=== PATIENT | female | born 1940 | race Caucasian/White ===

== ENCOUNTER 2022-10-10 10:59 | Emergency (ER) | payer MEDICARE, BC, OTHER, SELFPAY ==
[2022-10-10 11:12] VITALS: BP 152/68; PULSE 73; RESP 16; TEMP 36.7; O2SAT 100
[2022-10-10 11:14] VITALS: BP 152/68; PULSE 73; RESP 16; TEMP 36.7; O2SAT 100
--- NOTE | 2022-10-10 11:20 | ED.EYEPROB ---
HPI - Eye Problem General Chief complaint: Eye Problems Stated complaint: right eye blurry Time Seen by Provider: 10/10/22 11:20 Source: patient and RN notes reviewed History of Present Illness HPI Narrative: patient is a 82-year-old female who presents to the Urgent Care with complaints of blurry vision in the right eye for the last 2-3 days. Denies any injury or foreign body to the eye. Patient states she feels that there is a film over the eye . Patient denies any recent headaches, neurological deficits, weakness, fatigue. Patient did drive herself to the facility and does not have a family member available at this time. No other acute complaints. No acute distress noted. Patient aware of the plan of care. Some parts of this dictation were generated by voice recognition software and may contain typographical and/or grammatical inaccuracies. Related Data Home Medications Medication Instructions Recorded Confirmed glimepiride 4 mg tablet mg 10/10/22 lisinopril 20 mg tablet mg 10/10/22 metformin 500 mg tablet mg 10/10/22 oxybutynin chloride 10 mg mg PO 10/10/22 tablet,extended release 24 hr potassium chloride 10 mEq meq PO 10/10/22 tablet,extended release pravastatin 40 mg tablet mg 10/10/22 propranolol 40 mg tablet mg 10/10/22 Allergies Allergy/AdvReac Type Severity Reaction Status Date / Time Penicillins Allergy Mild HIVES Verified 09/18/15 10:41 Review of Systems Review of Systems: CONSTITUTIONAL: Denies fever, chills, or sweats. EYES: Reports of blurry vision to the right eye ENT: Denies rhinorrhea, congestion, sore throat, or otalgia. CARDIOVASCULAR: Denies chest pain, palpitations, or edema. RESPIRATORY: Denies cough or dyspnea. GASTROINTESTINAL: Denies abdominal pain, nausea, vomiting, or diarrhea. GENITOURINARY: Denies dysuria or hematuria. SKIN: Denies rash or itching. MUSCULOSKELETAL: Denies back pain, joint pain, or myalgia. NEUROLOGIC: Denies headache, numbness, or weakness. All other systems reviewed are negative, except as documented in HPI. PMFSH Comments At the time of my signature, I reviewed and agree with the nursing past medical, surgical, social, and family history. There is no relevant family history pertinent to the patient complaint. Exam Narrative: GENERAL: This is a well-nourished, well-developed patient, in no apparent distress. HEAD: normocephalic, atraumatic. EYES: PERRL. Sclera clear/white. Vision is grossly intact. No obvious foreign body or injury noted to the right eye. EARS: External ears normal, auditory canals clear and without drainage, TMs normal without perforation. Hearing grossly intact. NOSE: External nose normal with no obvious nasal discharge, nares without redness, no rhinorrhea. THROAT: Mucous membranes moist NECK: Neck supple SKIN: warm, intact with no suspicious lesions or rash, good texture and turgor. NEURO: awake, alert, and oriented to person, place and time. There were no obvious focal neurologic abnormalities. 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 No asymmetry. Facial nerve intact. EXTREMITIES: No clubbing, cyanosis, or edema. Course Course Level of Care: Express Care Visit Vital Signs Vital signs: Vital Signs Temperature 98.1 F 10/10/22 11:12 Pulse Rate 73 10/10/22 11:12 Respiratory Rate 16 10/10/22 11:12 Blood Pressure 152/68 H 10/10/22 11:12 Pulse Oximetry 100 10/10/22 11:12 Oxygen Delivery Room Air 10/10/22 11:12 Temperature 98.1 F 10/10/22 11:14 Pulse Rate 73 10/10/22 11:14 Respiratory Rate 16 10/10/22 11:14 Blood Pressure 152/68 H 10/10/22 11:14 Pulse Oximetry 100 10/10/22 11:14 Oxygen Delivery Room Air 10/10/22 11:14 Reviewed- Patient is informed that they may have pre-hypertension or hypertension based on a blood pressure reading in the department. I recommend the patient call the primary care provider listed on their discharge instructions or a physician of their choice this week
== END 2022-10-10 11:31 | disposition left against medical advice (07) ==
PROVIDERS: Emergency Provider Nurse Practitioner Family
DX: H53.8 Other visual disturbances (principal)
CPT/HCPCS: 99202; G0463

== ENCOUNTER 2023-05-09 08:13 | Emergency (ER) | payer MEDICARE, BC, SELFPAY ==
--- NOTE | ~2023-05-09 | CT_ITS ---
EXAMINATION: CT brain wo con DATE: 05/09/2023 12:02 INDICATION: Minor head injury TECHNIQUE: Computed tomography (CT) of the head was performed without intravenous contrast. Sagittal and coronal reconstructions were performed. The mA was adjusted according to patient size. Iterative reconstruction technique was employed. The dose-length product was 605.33 mGy-cm. COMPARISON: None FINDINGS: No fracture. No acute intracranial hemorrhage, acute infarction or abnormal extra axial fluid collect ion. 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 There is moderate scattered w celestino matter hypoattenuation consistent with chronic small vessel ischemic disease. Symmetric prominen ce of the sulci and ventricles consistent with moderate to severe age-appropriate diffuse cerebral vo lume loss. No mass/mass effect. Changes of bilateral intraocular lens replacement. The orbits, parana chacho sinuses and mastoid air cells are normal. Intracranial calcified cerebral atherosclerosis is note d. IMPRESSION: 1. No fracture or acute intracranial process. 2. 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 3. Age-related changes including moderate to severe diffuse volume loss and moderate scattered white matter hypoattenuation consistent with chronic small vessel ischemic disease. Reviewed, dictated and finalized at location A. IMPRESSION: 1. No fracture or acute intracranial process. 2. 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 3. Age-related changes including moderate to severe diffuse volume loss and mod erate scattered white matter hypoattenuation consistent with chronic small vess el ischemic disease.
--- NOTE | ~2023-05-09 | XR_ITS ---
EXAMINATION: SACRUM/COCCYX DATE: 05/09/2023 09:11 INDICATION: Low back pain after fall TECHNIQUE: Three views sacrum/coccyx FINDINGS: No prior studies for comparison. There is no displaced fracture of the sacrum. The coccyx demonstrates overall normal morphology with out acute angulation.There is degenerative spondylosis lower lumbar spine. There are symmetric degene rative changes of the hips and sacroiliac joints. Osteopenia. IMPRESSION: 1. No acute displaced osseous abnormality of the sacrum. Suspicion for occult or nondisplaced sacral fracture can either be evaluated with CT or MRI. 2. Grossly normal morphology to the coccyx without acute angulation. However, due to the wide range of normal variation of the coccyx, acute injury would be best evaluated by clinical examination and patient's symptoms. Reviewed, dictated and finalized at location []
[2023-05-09 08:16] VITALS: BP 133/80; PULSE 81; RESP 12; TEMP 36.6; O2SAT 99
[2023-05-09 08:55] VITALS: BP 112/71; PULSE 81; RESP 16; O2SAT 99
[2023-05-09] MEDS: SODIUM CHLORIDE 0.9% IV 1,000 ML 999 ML IV CONT (08:55)
[2023-05-09 09:04] LABS: Hematocrit 34.9 % (37.0-47.0); Hemoglobin 11.5 g/dL (12.0-15.0); Immature Granulocyte Absolute 0.09 K/mm3 (0.00-0.031); Immature Granulocyte Percent A 1.5 % (0-0.5); Immature Platelet Fraction Pct 8.3 % (0.9-11.2); Lymphocytes Absolute Auto 0.35 K/mm3 (0.9-3.2); Lymphocytes Percent Auto 5.7 % (18.3-44.2); Mean Corpuscular Hemoglobin 32.1 pg (26-34); Mean Corpuscular Volume 97.5 fl (80-100); Mean Platelet Volume 11.6 fl (7.4-10.4); Monocytes Absolute Auto 0.2 K/mm3 (0.1-0.6); Monocytes Percent Auto 3.7 % (2.6-8.5); Neutrophils Absolute Auto 5.5 K/mm3 (1.3-6.7); Neutrophils Percent Auto 89.1 % (45.5-73.1); Platelet Count Result 48 k/mm3 (150-375); Red Blood Count 3.58 M/mm3 (4.2-5.4); Red Cell Distribution Width 15.1 % (11.5-14.5); White Blood Count 6.2 K/mm3 (4.5-10.0)
[2023-05-09 09:12] LABS: Alanine Aminotransferase 23 U/L (6-35); Albumin Level 2.6 g/dL (3.5-5.1); Alkaline Phosphatase 70 U/L (38-126); Anion Gap 2 mmol/L (8-16); Aspartate Amino Transferase 19 U/L (14-36); Bilirubin,Total 1.1 mg/dL (0.2-1.3); Blood Urea Nitrogen 28 mg/dL (7-17); Carbon Dioxide 23 mmol/L (22-30); Chloride 109 mmol/L (98-107); Estimated CRCL calculation 58 ml/min; Estimated Glomerular Filt Rate > 60; Glucose 320 mg/dL (65-110); Potassium 3.8 mmol/L (3.4-5.0); Sodium 134 mmol/L (137-145)
[2023-05-09 09:37] LABS: Creatine Kinase < 20 U/L (30-135)
[2023-05-09 09:53] VITALS: BP 144/73; PULSE 85; RESP 12; O2SAT 99
[2023-05-09 09:56] LABS: Appearance Urine Clear (Clear); Bilirubin Urine Negative (Negative); Blood Urine Negative (Negative); Color Urine Yellow (Yellow); Glucose Urine UA 3+ mg/dL (Negative); Ketones Urine Negative (Negative); Leukocyte Esterase Ur Negative LEU/UL (Negative); Nitrate Urine Negative (Negative); Protein Urine Negative (Negative); Specific Grav Ur 1.024 (1.001-1.035)
[2023-05-09 10:03] LABS: Add Urine Microscopic? NO
--- NOTE | 2023-05-09 10:21 | ED.FALL ---
HPI - Fall General Chief Complaint: Fall Stated Complaint: fall/ back pain Time Seen by Provider: 05/09/23 08:31 History of Present Illness HPI Narrative: Patient is an 82-year-old female who presents ER status post fall. She reports that she was trying to turn off an overhead light and was too short and fell last night. She landed on buttock. She did not lose consciousness. She did not strike her head other than a light tap on the ground. She reports she was too weak to stand up and was not close enough for a life alert so she laid on the ground throughout the evening. She then was able to make it over to her life alert today was brought to the ER. She has no complaints of extremity pain at this time. She has some mild pain to her buttock where she fell. No pain to the hips. Denies any prodrome of dysuria or urinary frequency or urgency. Has been eating and drinking normally without issue. Related Data Home Medications Medication Instructions Recorded Confirmed glimepiride 4 mg tablet mg 10/10/22 lisinopril 20 mg tablet mg 10/10/22 metformin 500 mg tablet mg 10/10/22 oxybutynin chloride 10 mg mg PO 10/10/22 tablet,extended release 24 hr potassium chloride 10 mEq meq PO 10/10/22 tablet,extended release pravastatin 40 mg tablet mg 10/10/22 propranolol 40 mg tablet mg 10/10/22 Allergies Allergy/AdvReac Type Severity Reaction Status Date / Time Penicillins Allergy Mild HIVES Verified 05/09/23 08:22 Review of Systems Review of Systems: All systems reviewed & are unremarkable except as noted in HPI and below Constitutional: Constitutional: Denies chills, Denies fatigue and Denies fever(s) ENT: Denies nasal congestion and Denies sore throat Cardiovascular: Cardiovascular: Denies chest pain, Denies rapid heart rate and Denies radiating jaw, neck or arm pain Respiratory: Respiratory: Denies cough and Denies dyspnea Gastrointestinal: Gastrointestinal: Denies abdominal pain, Denies nausea and Denies vomiting Musculoskeletal: Musculoskeletal: Denies arthralgias, Denies joint swelling and Denies muscle cramps Comments: Pain over the buttock Neurologic: Denies syncope, Denies headache(s), Denies focal weakness and Denies numbness [facility] Past Medical History Medical History (Updated 05/09/23 @ 12:53 by Raj Lao MD) Diabetes History of retinal detachment Hyperlipidemia Hypertension Thrombocytopenia Surgical History Surgical History (Updated 05/09/23 @ 10:24 by Raj Lao MD) History of hysterectomy Exam Narrative: GENERAL: Well-appearing, well-nourished, and in no acute distress. HEAD: Normocephalic, atraumatic. ENT: Mucous membranes moist. NECK: Supple. CHEST: Clear to auscultation. No respiratory distress. HEART: Regular rate and rhythm. Normal peripheral pulses. ABDOMEN: Soft, nontender, nondistended. Back: No reproducible midline tenderness to T/L-spine. No paraspinal muscular tenderness either. There is mild discomfort over the left buttock but not the coccyx midline. EXTREMITIES: Normal range of motion. No edema. SKIN: Warm, dry, no rash. NEURO: Alert and oriented x3. PSYCH: Normal mood and affect. Course Course Emergency Course: Patient resting comfortably. Reports she has chronic thrombocytopenia that she did not initially report and is being treated with infusions by Dr. Stockton. CT scan without head bleed. She has been up and ambulatory without issue. Discharge home recommend treatment of pain with [id number] pain medication Vital Signs Vital signs: Vital Signs Temperature 97.8 F 05/09/23 08:16 Pulse Rate 81 05/09/23 08:16 Respiratory Rate 12 05/09/23 08:16 Blood Pressure 133/80 05/09/23 08:16 Pulse Oximetry 99 05/09/23 08:16 Oxygen Delivery Room Air 05/09/23 08:16 Temperature 97.8 F 05/09/23 08:16 Pulse Rate 85 05/09/23 12:09 Respiratory Rate 15 05/09/23 12:09 Blood Pressure 122/71 05/09/23
[2023-05-09 11:02] VITALS: BP 115/75; PULSE 90; RESP 12; O2SAT 94
[2023-05-09 12:09] VITALS: BP 122/71; PULSE 85; RESP 15; O2SAT 99
[2023-05-09 13:25] VITALS: BP 111/63; PULSE 87; RESP 17; O2SAT 94
== END 2023-05-09 13:27 | disposition home or self-care (01) ==
PROVIDERS: Emergency Provider Emergency Medicine; PCP Internal Medicine Geriatric Medicine
DX: S39.92XA Unspecified injury of lower back, initial encounter (principal); D69.6 Thrombocytopenia, unspecified; I10 Essential (primary) hypertension; E11.9 Type 2 diabetes mellitus without complications; E78.5 Hyperlipidemia, unspecified; Z90.710 Acquired absence of both cervix and uterus; Z79.84 Long term (current) use of oral hypoglycemic drugs; W18.39XA Other fall on same level, initial encounter
CPT/HCPCS: 36415; 70450; 72220; 80053; 81003; 82550; 85025; 85055; 96360; 99284; J7030

== ENCOUNTER 2023-05-14 13:04 | Inpatient (IN) | payer MEDICARE, BC, SELFPAY ==
[2023-05-14] VITALS (36 sets, daily range): BP systolic 93–127; BP diastolic 51–79; PULSE 72–81; RESP 10–22; TEMP 36.6–37; O2SAT 93–100; BMI 24.7
--- NOTE | ~2023-05-14 | XR_ITS ---
EXAMINATION: XR chest 1V portable DATE: 05/16/2023 15:08 INDICATION: Status post percutaneous left lung biopsy TECHNIQUE: frontal view of the chest was obtained. COMPARISON: Chest radiograph dated 05/16/2023 FINDINGS: Again seen is the biopsied cavitary left upper lobe mass projecting over the lateral left upper lung zone. No new airspace opacities, pulmonary edema, pleural effusion or pneumothorax. The cardiomediast inal silhouette is normal. No gallstones in right upper quadrant. Old healed proximal left humeral fr acture deformity. IMPRESSION: 1. No pneumothorax, pleural effusion or other acute cardiopulmonary disease post percutaneous biopsy of a cavitary left upper lobe mass which could be either infectious or malignant in etiology. 2. Cholelithiasis. Reviewed, dictated and finalized at location A. IMPRESSION: 1. No pneumothorax, pleural effusion or other acute cardiopulmonary disease pos t percutaneous biopsy of a cavitary left upper lobe mass which could be either infectious or malignant in etiology. 2. Cholelithiasis.
--- NOTE | ~2023-05-14 | XR_ITS ---
EXAMINATION: XR chest 1V portable DATE: 05/16/2023 17:05 INDICATION: Status post percutaneous left lung biopsy TECHNIQUE: frontal view of the chest was obtained. COMPARISON: Chest radiograph dated 05/16/2023 FINDINGS: Again seen is the biopsied cavitary mass at the lateral left mid to upper lung zone. No new airspace opacities, pleural effusion or pneumothorax. The cardiomediastinal silhouette is normal. Cholelithias is and right upper quadrant. Old healed proximal left humeral fracture. IMPRESSION: 1. No pneumothorax or other acute cardiopulmonary disease post percutaneous biopsy of a left upper lo be cavitary mass which could be infectious or malignant in etiology. 2. Cholelithiasis. Reviewed, dictated and finalized at location A. IMPRESSION: 1. No pneumothorax or other acute cardiopulmonary disease post percutaneous bio psy of a left upper lobe cavitary mass which could be infectious or malignant i n etiology. 2. Cholelithiasis.
--- NOTE | ~2023-05-14 | XR_ITS ---
EXAMINATION: XR chest 1V Exam Date/Time: 05/16/2023 13:55 CDT HISTORY: S/P LEFT LUNG BIOPSY Comparison: 05/14/2023. RESULT: Lines, tubes, and devices: None. Lungs and pleura: Slightly increased size of the left upper lung nodule status post biopsy likely se condary to mild perilesional hemorrhage. No pneumothorax. Hazy left basilar opacity. Mild blunting of the left lateral costophrenic angle. Cardiomediastinal silhouette: Stable. Other: No acute osseous or upper abdominal finding. IMPRESSION: No pneumothorax post biopsy. Minimal perilesional hemorrhage surrounding the left upper lobe nodule. Subsegmental left basilar atelectasis. Trace left pleural effusion. Reviewed, dictated and finalized at location K. IMPRESSION: No pneumothorax post biopsy. Minimal perilesional hemorrhage surrounding the le ft upper lobe nodule. Subsegmental left basilar atelectasis. Trace left pleural effusion.
--- NOTE | ~2023-05-14 | CT_ITS ---
EXAMINATION: CT diagnostic chest wo con DATE: 05/14/2023 15:11 INDICATION: lung nodule. Shortness of breath. TECHNIQUE: Computed tomography (CT) of the chest was performed without intravenous contrast. Addition al 3D reconstructions utilizing coronal maximum intensity projection (MIP) were performed. Automated exposure control and iterative reconstruction technique were employed. The dose-length prod uct was 144.43 mGy-cm. COMPARISON: Chest radiograph dated 05/14/2023 FINDINGS: 2.5 x 1.5 x 1.9 cm left upper lobe nodule. Small calcified right lower lobe nodule consistent with ol d granulomatous disease. Linear bands of discoid atelectasis/scarring the bilateral lower lobes. No p ulmonary edema, pleural effusion or pneumothorax. Heart size is normal. Atherosclerotic coronary asa ry calcification. Thoracic aorta is normal in caliber. No pathologically enlarged thoracic lymphadeno karo. Small sliding-type hiatal hernia. Multiple peripherally calcified gallstones in the otherwise normal-appearing gallbladder. 4.0 cm macroscopic fat attenuation partially exophytic mass arising fro m the anterior lower pole of the right kidney consistent with an angiomyolipoma. 1 mm nonobstructing stone at the lower pole of the right kidney. Mild upper thoracic levocurvature with mild spondylosis. IMPRESSION: 1. 2.5 x 1.5 x 1.9 cm left upper lobe mass which is concerning for malignancy with differential inclu ding pneumonia or other inflammatory process. Consider CT-guided percutaneous lung biopsy for further evaluation. Reviewed, dictated and finalized at location A. IMPRESSION: 1. 2.5 x 1.5 x 1.9 cm left upper lobe mass which is concerning for malignancy w ith differential including pneumonia or other inflammatory process. Consider CT -guided percutaneous lung biopsy for further evaluation.
--- NOTE | ~2023-05-14 | MR_ITS ---
EXAMINATION: MR brain/brain stem wo/w con DATE: 05/15/2023 08:55 INDICATION: Abnormal head CT obtained for dizziness and frequent falls concerning for acute infarct TECHNIQUE: Magnetic resonance imaging (MRI) of the brain and brainstem was performed without and with 11 mL Multihance intravenous contrast. Sequences included sagittal and axial T1-weighted SE, axial d iffusion-weighted FS SE, axial 3D SWAN, axial T2-weighted FLAIR, and axial T2-weighted FSE. Postcontr ast axial and coronal T1-weighted SE was obtained. Apparent diffusion coefficient (ADC) maps were cre ated. COMPARISON: Head CT dated 05/14/2023 FINDINGS: There are no areas of restricted diffusion to suggest acute infarction. Again seen is a small old lac unar infarct at the left caudate nucleus best appreciated on the sagittal imaging. No intracranial he morrhage or abnormal intracranial mass lesion. There are scattered areas of nonspecific increased T2- weighted signal intensity in the cerebral white matter, predominantly involving the deep and perivent ricular white matter as well as the bilaterally as well as balanced ganglia, thalami and bilateral ba chacho ganglia, thalami and damian. There are no intraparenchymal signal abnormalities seen on the other p ulse sequences. Symmetric prominence of the sulci and ventricles including a cavum septum vergae cons istent with moderate age-appropriate diffuse cerebral volume loss. There are no abnormal extra-axial fluid collections. Flow voids are seen in the cerebral arteries on the T2-weighted sequences consiste nt with their expected patency. Changes of bilateral intraocular lens replacement. Visualized orbits and soft tissues are unremarkable. There are no areas of abnormal enhancement on the post contrast i mages. IMPRESSION: 1. No acute intracranial process. 2. Small lacunar infarct at the head of the left caudate nucleus. 3. Age-related changes including moderate diffuse volume loss and extensive calcific white matter T2 hyperintensity including at the thalami or tonsillar the decreased attenuation seen on prior CT and l ikely sequela of chronic small vessel ischemic disease. Reviewed, dictated and finalized at location A. IMPRESSION: 1. No acute intracranial process. 2. Small lacunar infarct at the head of the left caudate nucleus. 3. Age-related changes including moderate diffuse volume loss and extensive juliane cific white matter T2 hyperintensity including at the thalami or tonsillar the decreased attenuation seen on prior CT and likely sequela of chronic small vess el ischemic disease.
--- NOTE | ~2023-05-14 | US_ITS ---
EXAMINATION: US carotid duplex BI DATE: 05/15/2023 09:19 INDICATION: Dizziness. Cerebral atherosclerosis. TECHNIQUE: Grayscale, color Doppler, and pulsed Doppler images of the cervical carotid arteries were obtained. The degree of vessel stenosis is placed in one of the following categories: normal, <50%, 5 0-69%, >=70% but less than near-occlusion, near-occlusion, or total occlusion. Note that percent sten osis relative to normal distal artery lumen diameter is indirectly measured from velocity measurement s as described by Rocco, et al. Radiology 2003; 229:340-346. COMPARISON: None. FINDINGS: RIGHT: The right common carotid artery (CCA) peak systolic velocity (PSV) is 79 cm/s. The right internal car otid artery (ICA) PSV is 78 cm/s. The right ICA end-diastolic velocity (EDV) is 30 cm/s. The right IC A/CCA PSV ratio is 1.0. Grayscale and color Doppler images yield an estimate of <50% diameter reducti on from minimal plaque in the ICA. The external carotid artery (ECA) PSV is 56 cm/s. There is antegra de flow in the right vertebral artery. LEFT: The left CCA PSV is 81 cm/s. The left ICA PSV is 99 cm/s. The left ICA EDV is 36 cm/s. The left ICA/C CA PSV ratio is 1.2. Grayscale and color Doppler images yield an estimate of <50% diameter reduction from minimal plaque in the ICA. The ECA PSV is 53 cm/s. There is antegrade flow in the left vertebral artery. IMPRESSION: 1. <50% stenosis from minimal plaque in the right internal carotid artery. 2. <50% stenosis from minimal plaque in the left internal carotid artery. Reviewed, dictated and finalized at location A.
--- NOTE | ~2023-05-14 | XR_ITS ---
EXAMINATION: XR chest 1V portable INDICATION: Stroke symptoms TECHNIQUE: Portable AP chest at 1434 hours COMPARISON: None available FINDINGS: There is a 2 cm nodular opacity of the left upper lung zone. No pleural effusion or pneumot horax. The cardiomediastinal silhouette is normal. There is an old healed fracture of the proximal le ft humerus. Cholelithiasis is noted. IMPRESSION: 1. Left upper lobe nodule. Further evaluation with CT of the chest is recommended. Reviewed, dictated and finalized at location [] IMPRESSION: 1. Left upper lobe nodule. Further evaluation with CT of the chest is recommend ed.
--- NOTE | ~2023-05-14 | CT_ITS ---
Clinical Indication: Pulmonary embolus CT Scan of the Chest with Contrast: Technique: Contiguous sections were acquired throughout the chest after intravenous administration of 100 cc of Omnipaque 350. Dose reduction technique was used on this scan by utilizing automated expos ure control and iterative reconstruction technique. The dose-length product (DLP) was 173.51 mGy-cm. COMPARISON: 05/14/2023 Findings: There is no evidence of any significant mediastinal, hilar or axillary lymphadenopathy. There is prob able segmental level pulmonary embolus at the left lower lobe. No other pulmonary emboli identified. There is no evidence of aortic dissection or aneurysm. There is no evidence of pleural or pericardial effusion. Rounded consolidation left upper lobe is again present, now with central cavitation since prior exam. Images through the upper abdomen reveal splenomegaly, partially imaged. Impression: Pulmonary embolus at the segmental level on the left lower lobe. No other pulmonary emboli identified . Rounded consolidation left upper lobe, now with central cavitation since prior exam. Diagnostic consi derations again include pneumonia versus malignancy. Reviewed, dictated and finalized at [facility]. Impression: Pulmonary embolus at the segmental level on the left lower lobe. No other pulmo nary emboli identified. Rounded consolidation left upper lobe, now with central cavitation since prior exam. Diagnostic considerations again include pneumonia versus malignancy.
--- NOTE | ~2023-05-14 | CT_ITS ---
EXAMINATION: CT biopsy lung w/imaging DATE: 05/16/2023 14:01 INDICATION: Cavitary mass in the left upper lobe TECHNIQUE: The procedure including the risks and benefits was discussed with the patient. Risks discu ssed included infection, approximately 1/20 risk of symptomatic hemorrhage beyond mild hemoptysis, ap proximately 1/3 risk of pneumothorax, and approximately 1/10 risk of pneumothorax severe enough to wa rrant chest tube placement. The patient understood the risks and agreed to proceed. The patient was p laced prone. The skin overlying the posterior left hemithorax was prepped and draped in sterile fash ion. Anesthetic was administered with 1% lidocaine subcutaneously. A 19 gauge outer needle was adva nced under CT guidance to the lesion of interest. A 20 gauge core biopsy needle was then used to obta in 3 core biopsy specimens. 2 additional core specimens were obtained and placed in a sterile cup wit hout formalin for Gram stain and cultures. Approximately 0.5 mm of bloody fluid was aspirated from th e cystic component of the lesion prior to removal of the guide needle and was also sent to the lab fo r Gram stain and cultures. The needle was removed and the entry site was cleaned and dressed. There were no immediate complications. The dose-length product was 174.37 mGy-cm. FINDINGS: CT images demonstrate the outer needle tip just within a 2.2 x 1.8 cm centrally cavitary ma ss in the posterior left upper lobe. IMPRESSION: 1. Successful CT-guided biopsy of a 2.2 cm cavitary mass in the left upper lobe.. Reviewed, dictated and finalized at location A. IMPRESSION: 1. Successful CT-guided biopsy of a 2.2 cm cavitary mass in the left upper lobe ..
--- NOTE | ~2023-05-14 | CT_ITS ---
EXAMINATION: CT brain wo con DATE: 05/14/2023 13:24 INDICATION: Dizziness. Frequent falls. TECHNIQUE: Computed tomography (CT) of the head was performed without intravenous contrast. Sagittal and coronal reconstructions were performed. The mA was adjusted according to patient size. Iterative reconstruction technique was employed. The dose-length product was 605.33 mGy-cm. COMPARISON: head CT dated 05/09/2023 FINDINGS: No fracture. No acute intracranial hemorrhage, acute infarction or abnormal extra axial fluid collect ion. 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 Again seen is moderate scatte red white matter hypoattenuation consistent with chronic small vessel ischemic disease. One of the re gions of hypodensity at the left thalamus appears slightly more prominent than on the prior study whi ch could be related to acute infarct. Symmetric prominence of the sulci and ventricles consistent wit h moderate to severe age-appropriate diffuse cerebral volume loss. No mass/mass effect. Changes of bi lateral intraocular lens replacement. The orbits, paranasal sinuses and mastoid air cells are normal. Intracranial calcified cerebral atherosclerosis is noted. IMPRESSION: 1. Increased prominence of a small region of hypodensity left thalamus raising the possibility of acu te infarct superimposed over the otherwise unchanged moderate scattered white matter hypoattenuation consistent with chronic small vessel ischemic disease. No other acute intracranial process. 2. Unchanged small old lacunar infarct at the head of the left caudate nucleus. Reviewed, dictated and finalized at location A. IMPRESSION: 1. Increased prominence of a small region of hypodensity left thalamus raising the possibility of acute infarct superimposed over the otherwise unchanged mode rate scattered white matter hypoattenuation consistent with chronic small vesse l ischemic disease. No other acute intracranial process. 2. Unchanged small old lacunar infarct at the head of the left caudate nucleus.
--- NOTE | ~2023-05-14 | US_ITS ---
EXAMINATION: US venous doppler [facility] DATE: 05/15/2023 09:17 INDICATION: Right lower limb pain and swelling TECHNIQUE: Grayscale ultrasound images without and with compression and Doppler ultrasound images of the bilateral lower extremity veins were obtained. COMPARISON: None. FINDINGS: There is noncompressible occlusive appearing thrombus in the right popliteal, posterior tibial and pe roneal veins. The visualized portions of right common femoral vein, profunda (deep) femoral vein, fem oral vein, gastrocnemius vein and greater saphenous vein outflow are patent. There is noncompressible occlusive appearing thrombus in the left posterior tibial and peroneal veins . The visualized portions of left common femoral vein, profunda femoral vein, femoral vein, popliteal vein, gastrocnemius vein and greater saphenous vein outflow are patent. IMPRESSION: 1. Deep venous thrombosis in the right popliteal and bilateral posterior tibial and peroneal veins. Findings were discussed with Shamar Mccrary, the nurse caring for the patient, at 9:45 AM. Reviewed, dictated and finalized at location A. IMPRESSION: 1. Deep venous thrombosis in the right popliteal and bilateral posterior tibia l and peroneal veins. Findings were discussed with Shamar Mccrary, the nurse ca ring for the patient, at 9:45 AM.
--- NOTE | ~2023-05-14 | CT_ITS ---
Noncontrast CT scan of the lumbar spine CLINICAL HISTORY: Burst fracture TECHNIQUE: Axial noncontrast imaging of the lumbar spine was performed. Sagittal and coronal reformat demarco images were constructed. Dose reduction technique was used on this scan by utilizing automated ex posure control and iterative reconstruction technique. The dose-length product (DLP) was 508.73 mGy-c m. FINDINGS: There is acute burst fracture of L1, with mild loss of height of the superior endplate henny on. No significant retropulsion. No other fracture or subluxation seen. Intervertebral disc spaces ar e relatively well preserved throughout the lumbar spine. At L1-L2, there is no disc bulge or herniation. No spinal canal stenosis. There is mild bilateral jenelle ral foraminal narrowing. At L2-L3, there is minimal disc bulge and mild facet arthropathy. No central canal stenosis or neural foraminal narrowing. At L3-L4, there is no disc bulge or herniation. There is advanced facet arthropathy. No spinal canal stenosis or neural foraminal narrowing. At L4-L5, there is no disc bulge or herniation. There is advanced facet arthropathy. No spinal canal stenosis or neural foraminal narrowing. At L5-S1, there is no disc bulge or herniation. No spinal canal stenosis or neural foraminal narrowin g. Paravertebral soft tissues are unremarkable. Small to moderate abdominopelvic ascites is present, par tially imaged. Impression: Acute burst fracture of L1, with minimal loss of height and no significant retropulsion. Minimal degenerative change of the lumbar spine. Small to moderate abdominopelvic ascites, partially imaged. Consider additional evaluation as indicat ed. Correlate with any relevant clinical history. Reviewed, dictated and finalized at location M. Impression: Acute burst fracture of L1, with minimal loss of height and no significant retr opulsion. Minimal degenerative change of the lumbar spine. Small to moderate abdominopelvic ascites, partially imaged. Consider additional evaluation as indicated. Correlate with any relevant clinical history.
--- NOTE | 2023-05-14 13:14 | ECG_ITS ---
Measurements Intervals [place] Rate: 70 P: -4 [place]: 128 QRS: -24 QRSD: 80 T: 105 QT: 384 QTc: 417 Interpretive Statements SINUS RHYTHM BORDERLINE LEFT AXIS DEVIATION [QRS AXIS < -20] MODERATE VOLTAGE CRITERIA FOR LVH, CONSIDER NORMAL VARIANT [MEETS CRITERIA IN ONE OF: R(aVL), S(V1), R(V5), R(V5/V6)+S(V1)] NONSPECIFIC T-WAVE ABNORMALITY NO PREVIOUS ECG AVAILABLE FOR COMPARISON Electronically Signed On 05-15-2023 13:05:20 CDT by Christopher Henderson M.D.
[2023-05-14 14:31] LABS: Glucose Point of Care 167 mg/dl (65-105)
[2023-05-14 14:33] LABS: Basophils Percent Auto 0.2 % (0.2-1.2); Eosinophils Percent Auto 0.2 % (0-4.4); Hematocrit 39.1 % (37.0-47.0); Hemoglobin 13.6 g/dL (12.0-15.0); Immature Granulocyte Absolute 0.12 K/mm3 (0.00-0.031); Immature Granulocyte Percent A 0.9 % (0-0.5); Lymphocytes Absolute Auto 1.16 K/mm3 (0.9-3.2); Mean Corpuscular HGB Conc 34.8 g/dl (32-36); Mean Corpuscular Hemoglobin 33.4 pg (26-34); Mean Corpuscular Volume 96.1 fl (80-100); Mean Platelet Volume 10.3 fl (7.4-10.4); Monocytes Absolute Auto 0.6 K/mm3 (0.1-0.6); Monocytes Percent Auto 4.8 % (2.6-8.5); Neutrophils Percent Auto 84.9 % (45.5-73.1); Platelet Count Result 126 k/mm3 (150-375); Red Blood Count 4.07 M/mm3 (4.2-5.4); Red Cell Distribution Width 15.4 % (11.5-14.5); White Blood Count 12.9 K/mm3 (4.5-10.0)
[2023-05-14 14:44] LABS: Alanine Aminotransferase 27 U/L (6-35); Albumin Level 3.8 g/dL (3.5-5.1); Alkaline Phosphatase 82 U/L (38-126); Anion Gap 7 mmol/L (8-16); Aspartate Amino Transferase 31 U/L (14-36); Bilirubin,Total 2.8 mg/dL (0.2-1.3); Blood Urea Nitrogen 42 mg/dL (7-17); Calcium 9.8 mg/dL (8.4-10.2); Carbon Dioxide 27 mmol/L (22-30); Chloride 100 mmol/L (98-107); Estimated Glomerular Filt Rate > 60; Glucose 178 mg/dL (65-110); INR 1.3; Partial Thromboplastin Time 23.4 SECONDS (22.3-36.8); Potassium 4.8 mmol/L (3.4-5.0); Prothrombin Time 16.5 Seconds (11.1-14.7); Sodium 134 mmol/L (137-145)
[2023-05-14 14:54] LABS: Troponin I 0.027 ng/mL (0.000-0.034)
--- NOTE | 2023-05-14 15:54 | ED.NEUROSD ---
HPI - Neuro Symptoms/Deficit General Chief Complaint: Neuro Symptoms/Deficit Stated Complaint: Fall/Dizziness Time Seen by Provider: 05/14/23 13:18 History of Present Illness HPI Narrative: Patient is an 82-year-old female who presents ER after falling. Occurred last night. She reports she became very dizzy and fell to the ground. She is then too weak to get to a phone to call for help. She was able to move around today and call for help. She was found on the ground. She has no edema to her lower extremities since starting prednisone and makes it difficult for her to lift them in the air. She reports she is having persistent spinning vertigo which is new for her. No chest pain or chest pressure. No fevers or chills or sweats. Denies any weakness in her upper extremities. No new numbness or tingling. Patient was seen a couple days ago after a fall where she has symptoms coccyx pain but no additional issues. She had negative CT of the head at that time. Related Data Home Medications Medication Instructions Recorded Confirmed glimepiride 4 mg tablet 4 mg PO BID 10/10/22 05/14/23 lisinopril 20 mg tablet 20 mg PO DAILY 10/10/22 05/14/23 oxybutynin chloride 10 mg 10 mg PO DAILY 10/10/22 05/14/23 tablet,extended release 24 hr potassium chloride 10 mEq 20 meq PO DAILY 10/10/22 05/14/23 tablet,extended release pravastatin 40 mg tablet 40 mg PO DAILY 10/10/22 05/14/23 propranolol 40 mg tablet 40 mg PO BID 10/10/22 05/14/23 acyclovir 400 mg tablet 40 mg PO TID 05/14/23 05/14/23 ergocalciferol (vitamin D2) 1,250 1,250 mcg PO WEEKLY 05/14/23 05/14/23 mcg (50,000 unit) capsule prednisone 20 mg tablet 20 mg PO BID 05/14/23 05/14/23 tramadol 50 mg tablet 50 mg PO Q6H PRN Pain (Scale Score 05/14/23 05/14/23 4-6) Allergies Allergy/AdvReac Type Severity Reaction Status Date / Time Penicillins Allergy Mild HIVES Verified 05/14/23 13:05 Review of Systems Review of Systems: All systems reviewed & are unremarkable except as noted in HPI and below Constitutional: Constitutional: Denies chills, Reports fatigue, Denies fever(s) and Reports weakness ENT: Denies nasal congestion and Denies sore throat Cardiovascular: Cardiovascular: Denies chest pain and Denies rapid heart rate Respiratory: Respiratory: Denies cough and Denies dyspnea Gastrointestinal: Gastrointestinal: Denies abdominal pain, Denies nausea and Denies vomiting Neurologic: Reports dizziness, Denies syncope, Denies headache(s), Denies focal weakness and Denies numbness PMFSH Past Medical History Medical History (Updated 05/14/23 @ 15:56 by Raj Lao MD) Diabetes History of retinal detachment Hyperlipidemia Hypertension Thrombocytopenia Surgical History Surgical History (Updated 05/09/23 @ 10:24 by Raj Lao MD) History of hysterectomy Family History Family History (Updated 05/14/23 @ 20:05 by Echo Yin RN) Son Acute myocardial infarction Mother Congestive heart failure Father Hypertension Sibling Alzheimer disease ALS (amyotrophic lateral sclerosis) Social History Social History Smoking status: Never smoker Alcohol intake: never Substance use: never Lack of Transportation: No Lack of Food: Never True Current Housing: I Have Housing Concerned About Future Housing: No Difficulty Paying Gas/Electric Bills: No Difficulty Paying for Meds: No Currently Unemployed: No Education: High School Diploma/GED Difficulty w/ Childcare or Family Care: No Spiritual care concerns: No Exam Narrative: GENERAL: Chronically ill-appearing, well-nourished, and in no acute distress. HEAD: Normocephalic, atraumatic. EYES: PERRL and EOMI. ENT: Dry mucous membranes with poor dentition. CHEST: Clear to auscultation. No respiratory distress. HEART: Regular rate and rhythm. Normal peripheral pulses. ABDOMEN: Soft, nontender, nondistended. EXTREMITIES: Normal strength of the upper extremities.
--- NOTE | 2023-05-14 19:59 | ADMGEN ---
This patient, Rachele Hoffman, was admitted to Medical Room 347-. Patient/family oriented to hospital policies and general routines including ID bracelet, bed and alarms, visiting hours, pain management, procedures, bathroom and other care routines, personal items, smoking policy, room service/diet, and visiting hours. Information on how to activate the Rapid Response Team has been discussed. Patient/Family are encouraged to report perceived risks to care and to ask questions if they do not understand what they are told or what they should do.
--- NOTE | 2023-05-14 21:09 | PM.IMHP ---
H&P: HPI History of Present Illness Date/Time: 05/14/23 21:00 Chief Complaint: Dizziness, fall. Narrative: This is an 82-year-old female with hypertension, hyperlipidemia, diabetes, and thrombocytopenia who presented to the emergency department for evaluation of dizziness and fall. The patient provides the following history. Last night she became very dizzy and fell to the ground. She was unable to get herself up due to the dizziness, weakness, and pain in her back from the fall. Today she was finally able to move around and got to a phone to call for help. With further questioning she further clarifies or dizziness as vertigo, reporting a nearly constant spinning sensation. She believes this is what caused her to fall. She reports landing on her buttocks and falling down onto her back on the floor, and she had pain in her low back following that with some paresthesias into the feet. Brain CT today showed increased prominence of a small region of hypodensity in the left thalamus raising the possibility of acute infarct. A chest x-ray showed a left upper lobe nodule and subsequent chest CT showed a 2.5 x 1.5 x 1.9 cm left upper lobe mass concerning for malignancy in addition to a relatively recent appearing L2 burst fracture with 20% anterior to central vertebral body height loss and 3 mm retropulsion. She denies fever, chills, sweats, cough chest pain, nausea, vomiting, and diarrhea. She also denies lower extremity weakness, saddle anesthesia, urinary retention, and bowel incontinence. She has no known history of malignancy but does see a mechanical manufacturing engineer (I think Dr. Stockton) for chronic thrombocytopenia for which she is on steroids Review of Systems Review of Systems: Twelve systems were reviewed. She has lost 26 lb in the last month and a half. No fever but endorses some chills. She has had a mild cough which is productive of clear phlegm. Denies sick contacts. No recent travel. Denies chest and pleuritic pain. Endorses calf swelling and tenderness, right greater than left. No personal or family history venous thromboembolism. Appetite has been okay. No nausea, vomiting, or diarrhea. Denies saddle anesthesia. No urinary retention or bowel incontinence. [facility] Past Medical History Medical History (Updated 05/16/23 @ 11:51 by Rebeka Christopher PA-C) Hyperlipidemia Hypertension Retinal detachment, right Type 2 diabetes mellitus Surgical History Surgical History (Updated 05/16/23 @ 11:51 by Rebeka Christopher PA-C) History of cataract extraction History of intestinal surgery Related to bowel obstruction, patient cannot provide further details. History of partial hysterectomy History of right knee joint replacement Family History Family History Son Acute myocardial infarction Mother Congestive heart failure Father Hypertension Sibling Alzheimer disease ALS (amyotrophic lateral sclerosis) Social History Social History (Updated 05/16/23 @ 11:52 by Rebeka Christopher PA-C) Social History: Surrogate medical decision maker: Jessica Wright, daughter. Code status: Full code. Smoking status: Never smoker Alcohol intake: never Substance use: never Lack of Transportation: No Lack of Food: Never True Current Housing: I Have Housing Concerned About Future Housing: No Difficulty Paying Gas/Electric Bills: No Difficulty Paying for Meds: No Currently Unemployed: No Education: High School Diploma/GED Difficulty w/ Childcare or Family Care: No Spiritual care concerns: No Meds Home Medications and Allergies Home Medications Medication Instructions Recorded Confirmed Type glimepiride 4 mg tablet 4 mg PO BID 10/10/22 05/14/23 History lisinopril 20 mg tablet 20 mg PO DAILY 10/10/22 05/14/23 History oxybutynin chloride 10 mg 10 mg PO DAILY 10/10/22 05/14/23 History tablet,extended release 24 hr potassium chloride 10 mEq 20 meq PO DAILY 1
[2023-05-15] VITALS (13 sets, daily range): BP systolic 97–171; BP diastolic 51–129; PULSE 74–112; RESP 16–18; TEMP 36.2–36.6; O2SAT 93–100; BMI 24.7
--- NOTE | 2023-05-15 00:20 | ECHO_ITS ---
Patient Info Name: Rachele Hoffman Age: 82 years : 1940 Gender: Female Ht: 61 in Wt: 120 lbs BSA: 1.54 m2 HR: 112 bpm BP: 171 / 129 mmHg Technical Quality: Fair Exam Date: 05/15/2023 12:50 PM Exam Location: [facility] Patient Status: Inpatient Admit Date: 05/15/2023 Staff Ordering Physician: Rebeka Christopher PA-C Clinical Specialty Rep: Sofia Anderson RDCS Attending Provider: Akhil Lay MD Referring Physician: Candi CRAIG; Exam Type: CA echo doppler color flow Study Info Indications - dizziness/HTN Complete two-dimensional, color flow and Doppler transthoracic echocardiogram is performed. Summary 1. Complete two-dimensional, color flow and Doppler transthoracic echocardiogram is performed. 2. Left ventricular chamber dimension is normal. 3. Left ventricular systolic function is normal, estimated at 60-65%. 4. There is mild concentric increased left ventricular wall thickness. 5. The left ventricular diastolic function is grade I diastolic dysfunction. 6. Left atrial chamber dimension is mildly enlarged. 7. There is trace mitral valve regurgitation. 8. There is mild tricuspid valve regurgitation. 9. No pulmonary hypertension, estimated pulmonary arterial systolic pressure is 29 mmHg. Left Ventricle Tissue doppler E/e' is not performed. Left ventricular chamber dimension is normal. Left ventricular systolic function is normal, estimated at 60-65%. There is mild concentric increased left ventricular wall thickness. The left ventricular diastolic function is grade I diastolic dysfunction. Right Ventricle Right ventricular chamber dimension is normal. Right ventricular systolic function is normal. Left Atria Left atrial chamber dimension is mildly enlarged. Right Atria Right atrial chamber dimension is normal. Aortic Valve The aortic valve is trileaflet. There is no aortic valve stenosis. There is no aortic valve regurgitation. Pulmonic Valve There is no pulmonic regurgitation. Mitral Valve There is no mitral valve stenosis. There is trace mitral valve regurgitation. Tricuspid Valve There is mild tricuspid valve regurgitation. No pulmonary hypertension, estimated pulmonary arterial systolic pressure is 29 mmHg. Pericardium/Pleural There is no pericardial effusion. Inferior Vena Cava Normal inferior vena cava with >50% collapse upon inspiration consistent with normal right atrial pressure, 5 mmHg. Aorta The aortic root size at the sinus of Valsalva is normal. Left Ventricular Outflow Tract Name Value Normal LVOT 2D LVOT Diameter 1.9 cm LVOT Doppler LVOT Peak Gradient 10 mmHg LVOT Mean Gradient 7 mmHg LVOT VTI 27 cm LVOT VTI/AV VTI Ratio 1.2 LVOT Stroke Volume 77 ml LVOT CO 8.4 l/min LVOT CI 5.5 l/min/m2 Pulmonic Valve Name Value Normal RVOT Doppler
--- NOTE | 2023-05-15 07:15 | PM.IMPN ---
Progress Note: A&P Assessment and Plan (1) Orthostatic dizziness: Code(s): R42 - Dizziness and giddiness Status: Acute Assessment and Plan: Chief complaint and cause of falls is orthostatic dizziness. VS showed rise in HR and rise in BP when standing with orthostatic vital signs. Assess for possible PE in setting of orthostatic changes in VS and dizziness. Begin IV fluids. (2) DVT (deep venous thrombosis): Code(s): I82.409 - Acute embolism and thrombosis of unspecified deep veins of unspecified lower extremity Status: Acute Assessment and Plan: Newly identifed bilateral leg DVT, possibly related to lung mass. Lovenox started. Will consider dose reduction due to thrombocytopenia. (3) Pulmonary embolism: Code(s): I26.99 - Other pulmonary embolism without acute cor pulmonale Status: Acute Assessment and Plan: CTA chest identifies left lower lobe segmental PE. No hypoxia. See above for anticoagulation. (4) Mass of upper lobe of left lung: Code(s): R91.8 - Other nonspecific abnormal finding of lung field Status: Acute Assessment and Plan: Newly identified left upper lobe mass, possibly cancerous. Consider CT guided biopsy. CTA shows lesion is now cavitary which is change from exam less than 24 hours ago. (5) Thrombocytopenia: Code(s): D69.6 - Thrombocytopenia, unspecified Status: Acute Assessment and Plan: Newly identified thrombocytopenia, possibly related to lung mass. Patient adds information that this was discovered in September of 2022 without known cause. She has been receiving platelet transfusion to attempt to raise levels in order to get eye surgery done for retinal detatchment. Will monitor labs, consider transfusion if drop with anticoagulation. (6) Diabetes mellitus with hyperglycemia: Code(s): E11.65 - Type 2 diabetes mellitus with hyperglycemia Status: Acute Assessment and Plan: A1C 10.0 on admit. Treat with sliding scale and consult diabetic educator (7) Closed L2 vertebral fracture: Code(s): S32.029A - Unspecified fracture of second lumbar vertebra, initial encounter for closed fracture Status: Acute Assessment and Plan: L2 burst fracture, apparently recent from falls related to orthostatic dizziness. Consult PT/OT. Continue PRN pain medication. Order TLSO brace. (8) Cerebrovascular accident: Code(s): I63.9 - Cerebral infarction, unspecified Status: Acute Assessment and Plan: Old lacunar infarct identified, no new CVA/mass/bleed on MRI. Neurology consulted by ER. Appreciate recommendations. (9) Fall from ground level: Code(s): W18.30XA - Fall on same level, unspecified, initial encounter Status: Acute Assessment and Plan: Multiple falls related to orthostatic dizziness over past 2 weeks. Continue cardiovascular workup and involve PT/OT once off bedrest. (10) Serum total bilirubin elevated: Code(s): R17 - Unspecified jaundice Status: Acute Assessment and Plan: No abdominal pain/vomiting. Noted to be downtrending. Plan Order IR biopsy of lung mass. cavitary lesion could be cancerous mass verses pneumonia. No fever, cough, chills, dyspnea, chest pain. Unusual thrombocytopenia and unprovoked DVT/PE lend to concern for malignancy vs pneumonia. Blood cultures are pending. continue IV hydration continue anticoagulation for DVT/PE, balance with platelets including platelet transfusion is needed Obtain blood consent Order TLSO brace, BSC with assist after brace placement. Time Spent With Patient Time: Time spent with patient over 60 minutes Subjective Date/time seen: 05/15/23 11:00 Interval history: This is an 82-year-old female patient with a history of hypertension diabetes hyperlipidemia who presents to the hospital after 2nd fall in 1 week. Patient has been experiencing orthostatic dizziness leading to several falls. As re
[2023-05-15 07:23] LABS: Basophils Percent Auto 0.1 % (0.2-1.2); Eosinophils Percent Auto 0.4 % (0-4.4); Hematocrit 38.8 % (37.0-47.0); Hemoglobin 12.9 g/dL (12.0-15.0); Immature Granulocyte Absolute 0.05 K/mm3 (0.00-0.031); Immature Granulocyte Percent A 0.7 % (0-0.5); Lymphocytes Absolute Auto 0.74 K/mm3 (0.9-3.2); Lymphocytes Percent Auto 10.7 % (18.3-44.2); Mean Corpuscular HGB Conc 33.2 g/dl (32-36); Mean Corpuscular Hemoglobin 32.7 pg (26-34); Mean Corpuscular Volume 98.2 fl (80-100); Mean Platelet Volume 10.5 fl (7.4-10.4); Monocytes Absolute Auto 0.3 K/mm3 (0.1-0.6); Monocytes Percent Auto 4.6 % (2.6-8.5); Neutrophils Absolute Auto 5.8 K/mm3 (1.3-6.7); Neutrophils Percent Auto 83.5 % (45.5-73.1); Platelet Count Result 95 k/mm3 (150-375); Red Blood Count 3.95 M/mm3 (4.2-5.4); Red Cell Distribution Width 15.5 % (11.5-14.5); White Blood Count 6.9 K/mm3 (4.5-10.0)
[2023-05-15 07:33] LABS: Alanine Aminotransferase 26 U/L (6-35); Albumin Level 3.7 g/dL (3.5-5.1); Alkaline Phosphatase 86 U/L (38-126); Anion Gap 7 mmol/L (8-16); Aspartate Amino Transferase 29 U/L (14-36); Bilirubin,Total 1.8 mg/dL (0.2-1.3); Blood Urea Nitrogen 36 mg/dL (7-17); Calcium 9.6 mg/dL (8.4-10.2); Carbon Dioxide 30 mmol/L (22-30); Chloride 100 mmol/L (98-107); Estimated Glomerular Filt Rate > 60; Glucose 165 mg/dL (65-110); Potassium 4.1 mmol/L (3.4-5.0); Sodium 137 mmol/L (137-145)
[2023-05-15 07:34] LABS: Lactic Acid Reflex 1.9 mmol/L (0.7-2.0)
--- NOTE | 2023-05-15 08:27 | PC.NURSE ---
Patient off of unit to MRI
--- NOTE | 2023-05-15 09:21 | PC.NURSE ---
Patient returned to unit from MRI
[2023-05-15 09:43] LABS: Glucose Point of Care 145 mg/dl (65-105)
[2023-05-15] MEDS: GLIMEPIRIDE 2 MG TABLET 4 MG PO ×2 (10:11→16:59)
[2023-05-15] MEDS: predniSONE 20 MG TABLET PO ×2 (10:12→16:59)
[2023-05-15] MEDS: PRAVASTATIN SODIUM 20 MG TABLET 40 MG PO (10:12)
[2023-05-15] MEDS: oxyBUTYnin CHLORIDE XL 5 MG TAB.ER.24 10 MG PO (10:12)
[2023-05-15] MEDS: ACYCLOVIR 400 MG TABLET PO ×2 (10:12→12:25)
--- NOTE | 2023-05-15 10:24 | PCSTNOTE ---
Please refer to the Bedside Swallow Evaluation in the EMR. Please note, silent aspiration cannot be ruled out at bedside.
[2023-05-15] MEDS: ENOXAPARIN 60 MG/0.6 ML SYRINGE SUB-Q (10:28)
[2023-05-15] MEDS: SODIUM CHLORIDE 0.9% IV 1,000 ML 75 ML IV CONT (10:38)
--- NOTE | 2023-05-15 10:43 | PC.NURSE ---
Spoke with Ted RAO in regards to patients AM medications. Holding propanolol now due to patients positive orthostatics. Okay to give stat dose of lovenox despite patients current platelet count due to the new findings of DVT's in lower extremities. Ted RAO will discuss anticoagulant changes moving forward with hospitalist group.
--- NOTE | 2023-05-15 11:09 | PC.NURSE ---
Patient off of unit to CT scan
--- NOTE | 2023-05-15 11:30 | PC.NURSE ---
Patient returned to unit from CT
[2023-05-15 12:10] LABS: Glucose Point of Care 220 mg/dl (65-105)
[2023-05-15] MEDS: INSULIN ASPART (*BKC) 100 UNITS/ML SUB-Q ×2 (12:24→16:59)
--- NOTE | 2023-05-15 12:52 | PC.NURSE ---
Called agronomy professor. No answer. Message left in regards to new consult for agronomy professor.
[2023-05-15 16:57] LABS: Glucose Point of Care 383 mg/dl (65-105)
--- NOTE | 2023-05-15 19:00 | PC.NURSE ---
Spoke with radiology in regards to liver biopsy and all anticoagulants are to be held in AM due to biopsy.
--- NOTE | 2023-05-15 19:25 | PC.NURSE ---
Spoke with Remy RAO in regards to PM dose of lovenox and okay to give.
[2023-05-15] MEDS: PROPRANOLOL HCL 40 MG TABLET PO (19:56)
[2023-05-15] MEDS: ENOXAPARIN 60 MG/0.6 ML SYRINGE 55 MG SUB-Q (19:58)
[2023-05-15] MEDS: INSULIN ASPART (*BKC) 100 UNITS/ML 8 UNITS SUB-Q (20:34)
[2023-05-15 22:01] LABS: Glucose Point of Care > 500 mg/dl (65-105)
[2023-05-15 23:53] LABS: Glucose Point of Care 469 mg/dl (65-105)
[2023-05-16] VITALS (11 sets, daily range): BP systolic 114–132; BP diastolic 60–67; PULSE 80–104; RESP 16–18; TEMP 36.3–36.9; O2SAT 98–100
[2023-05-16] MEDS: SODIUM CHLORIDE 0.9% IV 1,000 ML 75 ML IV CONT ×2 (00:54→17:21)
[2023-05-16] MEDS: INSULIN ASPART (*BKC) 100 UNITS/ML 12 UNITS SUB-Q (00:56)
[2023-05-16 06:00] LABS: Hematocrit 31.2 % (37.0-47.0); Hemoglobin 10.6 g/dL (12.0-15.0); Immature Platelet Fraction Pct 3.8 % (0.9-11.2); Mean Corpuscular Hemoglobin 32.7 pg (26-34); Mean Corpuscular Volume 96.3 fl (80-100); Platelet Count Result 76 k/mm3 (150-375); Red Blood Count 3.24 M/mm3 (4.2-5.4); Red Cell Distribution Width 14.7 % (11.5-14.5); White Blood Count 4.3 K/mm3 (4.5-10.0)
[2023-05-16 06:07] LABS: Creatine Kinase < 20 U/L (30-135)
[2023-05-16 06:19] LABS: Glucose Point of Care 321 mg/dl (65-105)
[2023-05-16 06:20] LABS: Alanine Aminotransferase 26 U/L (6-35); Albumin Level 2.9 g/dL (3.5-5.1); Alkaline Phosphatase 89 U/L (38-126); Anion Gap 3 mmol/L (8-16); Aspartate Amino Transferase 25 U/L (14-36); Bilirubin,Total 0.8 mg/dL (0.2-1.3); Blood Urea Nitrogen 25 mg/dL (7-17); CRP 3.4 mg/dL (<1.0); Calcium 8.6 mg/dL (8.4-10.2); Carbon Dioxide 27 mmol/L (22-30); Chloride 106 mmol/L (98-107); Estimated Glomerular Filt Rate > 60; Glucose 287 mg/dL (65-110); Potassium 3.7 mmol/L (3.4-5.0); Sodium 136 mmol/L (137-145)
[2023-05-16 06:46] LABS: Procalcitonin 0.1 ng/mL
[2023-05-16 07:01] LABS: Thyroid Stimulating Hormone Reflex 0.133 uIU/mL (0.465-4.68)
[2023-05-16 07:02] LABS: Erythrocyte Sedimentation Rate 21 mm/hr (0-20)
[2023-05-16 07:13] LABS: Folic Acid 7.6 ng/mL (2.76->20)
--- NOTE | 2023-05-16 08:05 | PCPTNOTE ---
Pt currently on bedrest as of 05/15/23 and is needing a TLSO brace - will follow up with hospitalist prior to initiating therapy.
[2023-05-16 08:10] LABS: Free T4 Free Thyroxine Reflex 1.55 ng/dL (0.78-2.19)
[2023-05-16 08:29] LABS: Glucose Point of Care 204 mg/dl (65-105)
--- NOTE | 2023-05-16 08:30 | PCWOUND ---
WOCN NOTE Received nurse driven consult for possible pressure ulcer, spoke with patient's RN who states consult is not needed. Patient has some shearing present, but all tissue blanches and staff are apply clear zinc protective barrier cream to skin.
[2023-05-16] MEDS: PRAVASTATIN SODIUM 20 MG TABLET 40 MG PO (08:48)
[2023-05-16] MEDS: oxyBUTYnin CHLORIDE XL 5 MG TAB.ER.24 10 MG PO (08:49)
[2023-05-16] MEDS: GLIMEPIRIDE 2 MG TABLET 4 MG PO ×2 (08:49→17:21)
[2023-05-16] MEDS: PROPRANOLOL HCL 40 MG TABLET PO ×2 (08:49→20:53)
[2023-05-16] MEDS: ACYCLOVIR 400 MG TABLET PO ×2 (08:50→17:21)
[2023-05-16] MEDS: predniSONE 20 MG TABLET PO ×2 (08:50→17:22)
[2023-05-16] MEDS: INSULIN ASPART (*BKC) 100 UNITS/ML SUB-Q ×4 (08:51→20:56)
[2023-05-16 09:12] LABS: Total Triiodothyronine (T3) 0.82 NG/ML (0.97-1.69)
[2023-05-16 12:23] LABS: Glucose Point of Care 236 mg/dl (65-105)
--- NOTE | 2023-05-16 13:00 | PC.NURSE ---
Patient off of unit to CT scan for lung biopsy
--- NOTE | 2023-05-16 13:22 | PCOTNOTE ---
Pt. BARBI mckeon has arrived in pt. room, pt away from room at this time for biopsy and is unavailable for OT evaluation at this time. Nursing aware. Following.
--- NOTE | 2023-05-16 14:20 | PC.NURSE ---
Patient returned to unit from CT scan
--- NOTE | 2023-05-16 15:14 | PM.IMPN ---
Progress Note: A&P Assessment and Plan (1) Cerebrovascular accident: Qualifiers: CVA mechanism: unspecified Qualified Code(s): I63.9 - Cerebral infarction, unspecified Code(s): I63.9 - Cerebral infarction, unspecified Status: Acute Assessment and Plan: -Old lacunar infarct identified, no new CVA/mass/bleed on MRI. Neurology consulted by ER. Appreciate recommendations. (2) Mass of upper lobe of left lung: Code(s): R91.8 - Other nonspecific abnormal finding of lung field Status: Acute Assessment and Plan: -Going to IR today for biopsy. Concerns for malignancy given unusual thrombocytopenia, unprovoked DVT/PE, and recent 26 lb weight loss over the last month. -Spoke with IR radiologist who noted a fluid collection around mass. Cultures were sent for fungal and gram stain. Will follow for results. (3) Closed compression fracture of L2 vertebra: Qualifiers: Encounter type: subsequent encounter Fracture healing: with routine healing Qualified Code(s): S32.020D - Wedge compression fracture of second lumbar vertebra, subsequent encounter for fracture with routine healing Code(s): S32.020A - Wedge compression fracture of second lumbar vertebra, initial encounter for closed fracture Status: Acute Assessment and Plan: -TLSO brace ordered. Bed rest for now until brace available and then can be up to BS with brace at all times. (4) Fall from ground level: Code(s): W18.30XA - Fall on same level, unspecified, initial encounter Status: Acute Assessment and Plan: -hospital fall precautions (5) Vertigo: Code(s): R42 - Dizziness and giddiness Status: Acute (6) Serum total bilirubin elevated: Code(s): R17 - Unspecified jaundice Status: Acute (7) Thrombocytopenia: Code(s): D69.6 - Thrombocytopenia, unspecified Status: Acute Assessment and Plan: -likely related to potential malignancy. -trend plt and transfuse as appropriate. -currently no signs of bleeding. (8) Diabetes mellitus with hyperglycemia: Qualifiers: Diabetes mellitus senior living insulin use: without senior living use Diabetes mellitus type: type 2 Qualified Code(s): E11.65 - Type 2 diabetes mellitus with hyperglycemia Code(s): E11.65 - Type 2 diabetes mellitus with hyperglycemia Status: Acute Assessment and Plan: -hemoglobin a1c 10.0. -on glimepiride at home. holding while inpatient. dosing with sliding scale. (9) DVT (deep venous thrombosis): Qualifiers: Affected thrombotic vein of extremity: unspecified vein of extremity Chronicity: acute DVT location: lower extremity Laterality: bilateral Qualified Code(s): I82.403 - Acute embolism and thrombosis of unspecified deep veins of lower extremity, bilateral Code(s): I82.409 - Acute embolism and thrombosis of unspecified deep veins of unspecified lower extremity Status: Acute Assessment and Plan: -NO SCDs. Receiving treatment dose lovenox. (10) Pulmonary embolism: Qualifiers: Acute cor pulmonale presence: without acute cor pulmonale Chronicity: acute Pulmonary embolism type: unspecified Qualified Code(s): I26.99 - Other pulmonary embolism without acute cor pulmonale Code(s): I26.99 - Other pulmonary embolism without acute cor pulmonale Status: Acute Assessment and Plan: -Pulmonary embolus at the segmental level on the left lower lobe. No other pulmonary emboli identified. -Started on Lovenox 55 mg Q 12 hours. Held this morning for procedure. Per Radiologist can restart anticoagulation tomorrow 05/17. -remains on room air, VSS. Subjective Date/time seen: 05/16/23 15:14 Interval history: This is an 82-year-old female patient with a history of hypertension diabetes hyperlipidemia who presents to the hospital after 2nd fall in 1 week. Patient has been experiencing orthostatic dizzines
[2023-05-16 16:59] LABS: Glucose Point of Care 215 mg/dl (65-105)
[2023-05-16 21:39] LABS: Glucose Point of Care 325 mg/dl (65-105)
[2023-05-17] VITALS (14 sets, daily range): BP systolic 124–135; BP diastolic 59–86; PULSE 71–108; RESP 16–18; TEMP 36.4–36.6; O2SAT 88–100; BMI 26.4
[2023-05-17 06:16] LABS: Eosinophils Percent Auto 0.3 % (0-4.4); Hematocrit 31.6 % (37.0-47.0); Hemoglobin 10.3 g/dL (12.0-15.0); Immature Granulocyte Absolute 0.02 K/mm3 (0.00-0.031); Immature Granulocyte Percent A 0.5 % (0-0.5); Immature Platelet Fraction Pct 3.9 % (0.9-11.2); Lymphocytes Absolute Auto 0.42 K/mm3 (0.9-3.2); Lymphocytes Percent Auto 10.7 % (18.3-44.2); Mean Corpuscular HGB Conc 32.6 g/dl (32-36); Mean Corpuscular Hemoglobin 32.8 pg (26-34); Mean Corpuscular Volume 100.6 fl (80-100); Mean Platelet Volume 9.3 fl (7.4-10.4); Monocytes Absolute Auto 0.2 K/mm3 (0.1-0.6); Monocytes Percent Auto 5.1 % (2.6-8.5); Neutrophils Absolute Auto 3.3 K/mm3 (1.3-6.7); Neutrophils Percent Auto 83.4 % (45.5-73.1); Platelet Count Result 64 k/mm3 (150-375); Red Blood Count 3.14 M/mm3 (4.2-5.4); White Blood Count 3.9 K/mm3 (4.5-10.0)
[2023-05-17 06:25] LABS: INR 1.3; Prothrombin Time 16.5 Seconds (11.1-14.7)
[2023-05-17 06:26] LABS: Partial Thromboplastin Time 25.4 SECONDS (22.3-36.8)
[2023-05-17 06:31] LABS: Alanine Aminotransferase 25 U/L (6-35); Albumin Level 2.9 g/dL (3.5-5.1); Alkaline Phosphatase 79 U/L (38-126); Anion Gap 4 mmol/L (8-16); Aspartate Amino Transferase 28 U/L (14-36); Bilirubin,Total 0.9 mg/dL (0.2-1.3); Blood Urea Nitrogen 25 mg/dL (7-17); Calcium 8.2 mg/dL (8.4-10.2); Carbon Dioxide 28 mmol/L (22-30); Chloride 107 mmol/L (98-107); Estimated Glomerular Filt Rate > 60; Glucose 219 mg/dL (65-110); Magnesium 1.6 mg/dL (1.6-2.3); Phosphorus 2.8 mg/dL (2.5-4.5); Potassium 4.8 mmol/L (3.4-5.0); Sodium 139 mmol/L (137-145)
[2023-05-17 06:44] LABS: Procalcitonin 0.1 ng/mL
--- NOTE | 2023-05-17 08:33 | PCPTNOTE ---
Pt has bedrest orders active. Will contact hospitalist prior to evaluation.
[2023-05-17 08:36] LABS: Glucose Point of Care 186 mg/dl (65-105)
[2023-05-17] MEDS: ACYCLOVIR 400 MG TABLET PO ×3 (08:52→17:21)
[2023-05-17] MEDS: GLIMEPIRIDE 2 MG TABLET 4 MG PO ×2 (08:52→17:21)
[2023-05-17] MEDS: oxyBUTYnin CHLORIDE XL 5 MG TAB.ER.24 10 MG PO (08:52)
[2023-05-17] MEDS: PRAVASTATIN SODIUM 20 MG TABLET 40 MG PO (08:52)
[2023-05-17] MEDS: PROPRANOLOL HCL 40 MG TABLET PO ×2 (08:52→21:23)
[2023-05-17] MEDS: predniSONE 20 MG TABLET PO ×2 (08:53→17:21)
[2023-05-17] MEDS: SODIUM CHLORIDE 0.9% IV 1,000 ML 75 ML IV CONT (08:53)
[2023-05-17] MEDS: ENOXAPARIN 60 MG/0.6 ML SYRINGE 55 MG SUB-Q ×2 (09:49→21:23)
--- NOTE | 2023-05-17 12:00 | WPDNEURCNPN ---
Assessment and Plan Assessment and plan (1) History of stroke: Code(s): Z86.73 - Personal history of transient ischemic attack (TIA), and cerebral infarction without residual deficits Status: Acute (2) Type 2 diabetes mellitus: Code(s): E11.9 - Type 2 diabetes mellitus without complications Status: Acute (3) Hyperlipidemia: Code(s): E78.5 - Hyperlipidemia, unspecified Status: Acute (4) Hypertension: Code(s): I10 - Essential (primary) hypertension Status: Acute Plan Ms. Hoffman is an 82 year old female with a history of HTN, HLD, DM presenting due to recurrent falls. Found to have an old lacunar infarct in the left caudate -- that is asymptomatic. Discussed importance of managing stroke risk factors for secondary prevention of future strokes. - Start daily aspirin 81mg - Continue pravastatin 40mg daily - Optimize glycemic control - Check LDL, goal <70 -- may need to adjust statin Consult date: 05/17/23 Time Seen: 12:00 Reason for consult: Stroke HPI: Rachele Hoffman is a 82 year old female with a history of hypertension, hyperlipidemia, and diabetes presenting due to falls. Patient presented due to experiencing orthostatic dizziness which then resulted in falls. When she presented to the ED, she had a CT head that showed concern for lacunar infarct. She had an MRI brain that showed small old lacunar infarct in the left caudate. She denies any stroke like symptoms in the past. Of note, she was also found to have DVTs during the admission. She is not currently on Aspirin. She does take pravastatin 40mg daily. Her A1c from this admission is 10 -- her insulin regimen is being adjusted. No recent LDL level. Her blood pressure has been in the 110-130s during this admission. She does not currently smoke. Review of Systems Constitutional: Constitutional: Denies chills, Denies fever(s) and Denies weight loss Eyes: Eyes: Denies diplopia and Denies loss of vision ENT: Denies dizziness, Denies hearing loss and Denies tinnitus Cardiovascular: Cardiovascular: Denies chest pain, Denies syncope and Denies dyspnea Respiratory: Respiratory: Denies cough, Denies dyspnea and Denies wheezing Gastrointestinal: Gastrointestinal: Denies abdominal pain, Denies change in bowel habits and Denies vomiting Genitourinary: Genitourinary: Denies urinary incontinence Musculoskeletal: Musculoskeletal: Reports back pain, Denies arthralgias and Denies joint swelling Integumentary/Breasts: Skin/Breast: Denies new lesions and Denies rash Neurologic: Reports as per HPI, Denies dizziness, Denies syncope and Denies loss of vision Psychiatric: Psychiatric: Denies anxiety and Denies depression Endocrine: Endocrine: Denies cold intolerance and Denies heat intolerance Hematologic/Lymphatic: Hematologic/Lymphatic: Denies easy bleeding and Denies easy bruising Allergic/Immunologic: Allergic/Immunologic: Denies no additional allergic/immunologic complaints and Denies wheezing PMFSH Past Medical History Medical History (Updated 05/17/23 @ 12:06 by Bettina Andre MD) Hyperlipidemia Hypertension Retinal detachment, right Type 2 diabetes mellitus Surgical History Surgical History History of cataract extraction History of intestinal surgery Related to bowel obstruction, patient cannot provide further details. History of partial hysterectomy History of right knee joint replacement Family History Family History Son Acute myocardial infarction Mother Congestive heart failure Father Hypertension Sibling Alzheimer disease ALS (amyotrophic lateral sclerosis) Social History Social History Social History: Surrogate medical decision maker: Jessica Wright, daughter. Code status: Full code. Smoking status: Never smoker Alcohol intake: n
[2023-05-17 12:16] LABS: Glucose Point of Care 186 mg/dl (65-105)
[2023-05-17 12:43] LABS: LDL Cholesterol Direct 61 mg/dL
--- NOTE | 2023-05-17 12:51 | WPDNEUROSGCN ---
Assessment and Plan Assessment and plan (1) Burst fracture of lumbar vertebra: Code(s): S32.001A - Stable burst fracture of unspecified lumbar vertebra, initial encounter for closed fracture Status: Acute Plan Ms. Hoffman is an 82-year-old female with history of hypertension, diabetes, and hyperlipidemia who was admitted on Sunday after a fall. On admission, she was found to have bilateral DVTs and PE as well as concern for a lung mass. On a CT chest, she was incidentally found to have an L1 burst fracture. She has been having back pain without radiation of pain or paresthesias into the legs. She does not have any neurologic deficit on physical exam. CT lumbar spine shows an L1 burst fracture with minimal retropulsion and 30% loss of height without kyphosis. At this time, I would recommend continuing the TLSO brace. She does not need to wear this when in bed unless it is more comfortable for her to wear it. I will arrange for follow-up in clinic in about 6 weeks with AP and lateral lumbar x-rays immediately prior to that appointment. Consult date: 05/17/23 HPI: Rachele Hoffman is a 82 year old female With history of hypertension, hyperlipidemia, diabetes who was admitted on May 14 after having a fall at home. She has had multiple falls recently since moving into a new apartment earlier this month. on Sunday, she became dizzy and fell onto her bottom and then on to reside. She has been having some back pain since that time and was discovered to have an L2 compression fracture. She denies any radicular pain or paresthesias into her legs. She denies any new weakness in her legs or bowel or bladder changes. She has been fit for a TLSO brace which has been providing some support for her back. She was able to get up and walk to the bathroom today for the 1st time since being hospitalized. Notably on admission, she was found to have a lung mass as well as bilateral lower extremity DVTs and pulmonary embolism. She has been started on therapeutic Lovenox. She had a lung biopsy performed yesterday with the pathology returning as acute pneumonia. Review of Systems Review of Systems: All systems reviewed & are unremarkable except as noted in HPI and below PMFSH Past Medical History Medical History (Updated 05/17/23 @ 12:06 by Bettina Andre MD) Hyperlipidemia Hypertension Retinal detachment, right Type 2 diabetes mellitus Surgical History Surgical History History of cataract extraction History of intestinal surgery Related to bowel obstruction, patient cannot provide further details. History of partial hysterectomy History of right knee joint replacement Family History Family History Son Acute myocardial infarction Mother Congestive heart failure Father Hypertension Sibling Alzheimer disease ALS (amyotrophic lateral sclerosis) Social History Social History Social History: Surrogate medical decision maker: Jessica Wright, daughter. Code status: Full code. Smoking status: Never smoker Alcohol intake: never Substance use: never Lack of Transportation: No Lack of Food: Never True Current Housing: I Have Housing Concerned About Future Housing: No Difficulty Paying Gas/Electric Bills: No Difficulty Paying for Meds: No Currently Unemployed: No Education: High School Diploma/GED Difficulty w/ Childcare or Family Care: No Spiritual care concerns: No Meds Home Medications and Allergies Home Medications Medication Instructions Recorded Confirmed Type glimepiride 4 mg tablet 4 mg PO BID 10/10/22 05/14/23 History lisinopril 20 mg tablet 20 mg PO DAILY 10/10/22 05/14/23 History oxybutynin chloride 10 mg 10 mg PO DAILY 10/10/22 05/14/23 History tablet,extended release 24 hr potassium chloride 10 mEq 20 meq PO
--- NOTE | 2023-05-17 13:50 | PM.IMPN ---
Progress Note: A&P Assessment and Plan (1) Cerebrovascular accident: Qualifiers: CVA mechanism: unspecified Qualified Code(s): I63.9 - Cerebral infarction, unspecified Code(s): I63.9 - Cerebral infarction, unspecified Status: Acute Assessment and Plan: -Old lacunar infarct identified, no new CVA/mass/bleed on MRI. Neurology consulted by ER. Appreciate recommendations from Neurosurgery. -CT lumbar spine w/o contrast was obtained today per their recommendations. (2) Mass of upper lobe of left lung: Code(s): R91.8 - Other nonspecific abnormal finding of lung field Status: Acute Assessment and Plan: -IR yesterday for biopsy. Concerns for malignancy given unusual thrombocytopenia, unprovoked DVT/PE, and recent 26 lb weight loss over the last month. -Spoke with IR radiologist who noted a fluid collection around mass. Cultures were sent for fungal and gram stain. Will follow for results. (3) Closed compression fracture of L2 vertebra: Qualifiers: Encounter type: subsequent encounter Fracture healing: with routine healing Qualified Code(s): S32.020D - Wedge compression fracture of second lumbar vertebra, subsequent encounter for fracture with routine healing Code(s): S32.020A - Wedge compression fracture of second lumbar vertebra, initial encounter for closed fracture Status: Acute Assessment and Plan: -TLSO brace ordered. UP to chair and commode with brace on at all time. PT/OT seeing patient. (4) Fall from ground level: Code(s): W18.30XA - Fall on same level, unspecified, initial encounter Status: Acute Assessment and Plan: -hospital fall precautions (5) Vertigo: Code(s): R42 - Dizziness and giddiness Status: Acute (6) Serum total bilirubin elevated: Code(s): R17 - Unspecified jaundice Status: Acute (7) Thrombocytopenia: Code(s): D69.6 - Thrombocytopenia, unspecified Status: Acute Assessment and Plan: -likely related to potential malignancy. -trend plt and transfuse as appropriate. -Plts 64 today -currently no signs of bleeding. She did have a small nose bleed yesterday but it stopped quickly. (8) Diabetes mellitus with hyperglycemia: Qualifiers: Diabetes mellitus alf insulin use: without supervisor intermediates use Diabetes mellitus type: type 2 Qualified Code(s): E11.65 - Type 2 diabetes mellitus with hyperglycemia Code(s): E11.65 - Type 2 diabetes mellitus with hyperglycemia Status: Acute Assessment and Plan: -hemoglobin a1c 10.0. -on glimepiride at home. holding while inpatient. dosing with sliding scale. -Persistent hyperglycemia and we were blaming steroids, however noticed that she had Dextrose hanging so I d/c'd fluids. -Alena DM educator was consulted and she also recommends Lantus 10 units at bedtime. Will start tonight. (9) DVT (deep venous thrombosis): Qualifiers: Affected thrombotic vein of extremity: unspecified vein of extremity Chronicity: acute DVT location: lower extremity Laterality: bilateral Qualified Code(s): I82.403 - Acute embolism and thrombosis of unspecified deep veins of lower extremity, bilateral Code(s): I82.409 - Acute embolism and thrombosis of unspecified deep veins of unspecified lower extremity Status: Acute Assessment and Plan: -NO SCDs. Receiving treatment dose lovenox. (10) Pulmonary embolism: Qualifiers: Acute cor pulmonale presence: without acute cor pulmonale Chronicity: acute Pulmonary embolism type: unspecified Qualified Code(s): I26.99 - Other pulmonary embolism without acute cor pulmonale Code(s): I26.99 - Other pulmonary embolism without acute cor pulmonale Status: Acute Assessment and Plan: -Pulmonary embolus at the segmental level on the left lower lobe. No other pulmonary emboli identified. -Started on Lovenox 55 mg Q 12 hours. -
[2023-05-17 17:08] LABS: Glucose Point of Care 259 mg/dl (65-105)
[2023-05-17] MEDS: INSULIN ASPART (*BKC) 100 UNITS/ML SUB-Q ×2 (17:21→21:22)
[2023-05-17] MEDS: INSULIN GLARGINE (*BKC) 100 UNITS/ML 10 UNITS SUB-Q (21:22)
[2023-05-17] MEDS: traMADol HCL (*CRX) 50 MG TABLET PO (21:31)
[2023-05-17 21:32] LABS: Glucose Point of Care 347 mg/dl (65-105)
[2023-05-18] VITALS (7 sets, daily range): BP systolic 124–147; BP diastolic 60–97; PULSE 67–74; RESP 16; TEMP 36.1–36.9; O2SAT 97–100
[2023-05-18 05:40] LABS: Hematocrit 30.9 % (37.0-47.0); Hemoglobin 10.2 g/dL (12.0-15.0); Immature Granulocyte Absolute 0.03 K/mm3 (0.00-0.031); Immature Granulocyte Percent A 0.8 % (0-0.5); Immature Platelet Fraction Pct 3.7 % (0.9-11.2); Lymphocytes Absolute Auto 0.43 K/mm3 (0.9-3.2); Lymphocytes Percent Auto 11.4 % (18.3-44.2); Mean Corpuscular Hemoglobin 32.2 pg (26-34); Mean Corpuscular Volume 97.5 fl (80-100); Mean Platelet Volume 9.9 fl (7.4-10.4); Monocytes Absolute Auto 0.2 K/mm3 (0.1-0.6); Monocytes Percent Auto 4.5 % (2.6-8.5); Neutrophils Absolute Auto 3.1 K/mm3 (1.3-6.7); Neutrophils Percent Auto 83.3 % (45.5-73.1); Platelet Count Result 62 k/mm3 (150-375); Red Blood Count 3.17 M/mm3 (4.2-5.4); Red Cell Distribution Width 14.6 % (11.5-14.5); White Blood Count 3.8 K/mm3 (4.5-10.0)
[2023-05-18 05:49] LABS: Alanine Aminotransferase 28 U/L (6-35); Albumin Level 2.8 g/dL (3.5-5.1); Alkaline Phosphatase 84 U/L (38-126); Anion Gap 3 mmol/L (8-16); Aspartate Amino Transferase 28 U/L (14-36); Bilirubin,Total 0.7 mg/dL (0.2-1.3); Blood Urea Nitrogen 22 mg/dL (7-17); Calcium 8.1 mg/dL (8.4-10.2); Carbon Dioxide 27 mmol/L (22-30); Chloride 106 mmol/L (98-107); Estimated Glomerular Filt Rate > 60; Glucose 182 mg/dL (65-110); Potassium 3.8 mmol/L (3.4-5.0); Sodium 136 mmol/L (137-145)
[2023-05-18 05:50] LABS: INR 1.4; Partial Thromboplastin Time 33.8 SECONDS (22.3-36.8)
[2023-05-18 08:16] LABS: Glucose Point of Care 138 mg/dl (65-105)
[2023-05-18] MEDS: ERGOCALCIFEROL 50,000 UNITS CAPSULE 50000 UNITS PO (08:55)
[2023-05-18] MEDS: PRAVASTATIN SODIUM 20 MG TABLET 40 MG PO (08:56)
[2023-05-18] MEDS: PROPRANOLOL HCL 40 MG TABLET PO (08:56)
[2023-05-18] MEDS: oxyBUTYnin CHLORIDE XL 5 MG TAB.ER.24 10 MG PO (08:56)
[2023-05-18] MEDS: ACYCLOVIR 400 MG TABLET PO ×3 (08:56→16:06)
[2023-05-18] MEDS: GLIMEPIRIDE 2 MG TABLET 4 MG PO ×2 (08:56→16:08)
[2023-05-18] MEDS: predniSONE 20 MG TABLET PO ×2 (08:57→16:07)
[2023-05-18] MEDS: ENOXAPARIN 60 MG/0.6 ML SYRINGE 55 MG SUB-Q (08:57)
[2023-05-18 09:23] LABS: Procalcitonin 0.1 ng/mL
[2023-05-18 11:59] LABS: Glucose Point of Care 234 mg/dl (65-105)
[2023-05-18] MEDS: INSULIN ASPART (*BKC) 100 UNITS/ML SUB-Q (12:23)
[2023-05-18 12:43] LABS: NIL 0.02 IU/mL; Quantiferon TB Plus, 1T NEGATIVE (NEGATIVE)
--- NOTE | 2023-05-18 13:30 | PM.CNPUL ---
Assessment and Plan Assessment and plan (1) Mass of upper lobe of left lung: Code(s): R91.8 - Other nonspecific abnormal finding of lung field Status: Acute Assessment and Plan: Patient is a never smoker, has been on prednisone 20 mg p.o. b.i.d. for 2-3 months and now has a cavitary mass with possible air-fluid level in the left upper lobe. CT-guided biopsy was negative for malignancy. I was consulted. I will treat the patient for a lung abscess. Currently she has no respiratory symptoms but that may be because she is on the prednisone. She initially had a leukocytosis when she presented and this has resolved. She has been afebrile. she is on room air. Blood cultures from 05/15/2023 are negative x2, MRSA swab of the nose is negative, approximately 0.5 mL of fluid was obtained during the CT-guided biopsy and sent for culture with Gram stain showing no organisms or white blood cells. No anaerobes isolated to date. Fungal stain is also negative. Patient has a penicillin allergy consisting of rash and itching. At this time, I will treat her with clindamycin 600 mg p.o. q.i.d. for 6 weeks and Levaquin 750 mg p.o. q.day x2 weeks. The patient should have repeat chest x-ray in approximately 3-4 weeks to reassess left upper lobe nodule and should have repeat CT scan in 6 weeks for comparison. I offer the patient to follow up in our Pulmonary Clinic and she prefers to follow up with her primary care physician and has an appointment already on 06/04/2023. I did give her a business card and told her to call if she needs an appointment with us. Discussed with the hospitalist team, Lois Thornton. Will sign off, call with questions. (2) Pulmonary embolism: Qualifiers: Pulmonary embolism type: unspecified Chronicity: acute Acute cor pulmonale presence: without acute cor pulmonale Qualified Code(s): I26.99 - Other pulmonary embolism without acute cor pulmonale Code(s): I26.99 - Other pulmonary embolism without acute cor pulmonale Status: Acute Assessment and Plan: Patient has a left lower lobe segmental pulmonary embolism and a right popliteal, posterior tibial and peroneal vein DVT and a left posterior tibial and peroneal vein DVT. Patient was started on Lovenox and will be transitioned to an oral anticoagulant. History of Present Illness History of Present Illness Consult date: 05/18/23 Chief complaint: Lung Mass/Central Vertigo/Possible CVA/Weakness Narrative: 05/18/2023: This is a new pulmonary consult for left upper lobe cavitary mass. 82-year-old with a history of thrombocytopenia started on prednisone 2-3 months ago, hypertension, hyperlipidemia, diabetes and recent falls. Patient presented to [facility] with a fall on 05/09, she tells me she lost balance with no loss of consciousness fell and came to the ER she had a CT of the head that was negative. Patient was discharged home and returned on 05/14 status post fall with vertigo and no respiratory issues. Room air saturations were 100%, white blood cell count was 12.9, creatinine was 0.7, troponin was negative. Chest x-ray demonstrated a left upper lobe nodule and a CT scan of the chest on 05/14 demonstrated a left upper lobe nodule and repeat CT angiogram on 05/15 demonstrated no pulmonary embolism, 2.5 x 1.5 x 1.9 cm left upper lobe cavitary thick-walled nodule with new cavitation and possible air-fluid level, L2 burst fracture. Patient was had on to have a deep venous thrombosis in the right popliteal and bilateral posterior tibial and peroneal veins. On 05/[address]-guided biopsy the left upper lobe cavitary mass and I spoke with the radiologist to perform the procedure. Initially got pink and then red fluid approximately 0.5 mL that was sent for culture. His core biopsy was sent to pathology and the final read was no malignancy with acute inflammation. The patient has never had any respiratory issues. She denies fever,
--- NOTE | 2023-05-18 14:19 | PM.DS ---
DS: Admitting Diagnosis Discharge Date May 18 Admitting Diagnosis Fall, dizziness DS: Discharge Diagnosis Discharge Diagnosis Plan Consult from pulmonology: Patient is a never smoker, has been on prednisone 20 mg p.o. b.i.d. for 2-3 months and now has a cavitary mass with possible air-fluid level in the left upper lobe.? CT-guided biopsy was negative for malignancy.? I was consulted. I will treat the patient for a lung abscess.? Currently she has no respiratory symptoms but that may be because she is on the prednisone.? She initially had a leukocytosis when she presented and this has resolved.? She has been afebrile.? she is on room air.? Blood cultures from 05/15/2023 are negative x2, MRSA swab of the nose is negative, approximately 0.5 mL of fluid was obtained during the CT-guided biopsy and sent for culture with Gram stain showing no organisms or white blood cells.? No anaerobes isolated to date.? Fungal stain is also negative. Patient has a penicillin allergy consisting of rash and itching.? At this time, I will treat her with clindamycin 600 mg p.o. q.i.d. for 6 weeks and Levaquin 750 mg p.o. q.day x2 weeks.? The patient should have repeat chest x-ray in approximately 3-4 weeks to reassess left upper lobe nodule and should have repeat CT scan in 6 weeks for comparison.? I offer the patient to follow up in our Pulmonary Clinic and she prefers to follow up with her primary care physician and has an appointment already on 06/04/2023.? I did give her a business card and told her to call if she needs an appointment with us. Patient has a left lower lobe segmental pulmonary embolism and a right popliteal, posterior tibial and peroneal vein DVT and a left posterior tibial and peroneal vein DVT.? Patient was started on Lovenox and will be transitioned to Eliquis. DS: Summary Hospital Course Reason for hospitalization: Dizziness, Fall Hospital Course: Date/time seen: 05/17/23? 13:50 Interval history: This is an 82-year-old female patient with a history of hypertension diabetes hyperlipidemia who presents to the hospital after 2nd fall in 1 week.? Patient has been experiencing orthostatic dizziness leading to several falls.? As result of ER visit for second fall and findings concerning for lung mass and possible area of Stroke on CT, patient was admitted and Neurology and NSGY consulted.? MRI ordered which showed old lacunar stroke but no new areas of ischemic stroke, bleed or brain mass.? US Dopplers showed bilateral lower extremity DVTs.? Patient denies any new complaints, only complaining of dizziness on position changes and back pain after falls. Interval history: 05/16: Mrs Hoffman appears better healthy despite current problem list. She is resting comfortably in bed with her daughter visiting. She says that she is scheduled for her lung biopsy this afternoon. Anticoagulation was held in preparation for procedure. She reports some dizziness when she rolls side to side and has some reports of pain to her lower back when she is sitting up greater than 45 degrees. Her appetite is good and she is voiding and stooling appropriately. She reports when she came to the hospital she had significant swelling in her BLE but that is much improved. She is nervous about the biopsy and wants to make sure that her family is with her when the results are reviewed. I told family I anticipated a week before pathology was revealed. Awaiting TLSO brace and then will start PT/OT. Per nurse, Shamar, brace should be delivered today. 05/17: Mrs Hoffman is doing well today. She is glad to have her biopsy over with. She has no complaints this morning. Her TSLO brace was delivered so she is anticipating working with PT/OT. I spoke with her and her daughter and explained that biopsy results will likely take about a week to come back. Fluid surrounding the mass was sent for gram stain and culture so we will follow for those results. Anticoagulation with Lovenox was restated today fo
[2023-05-18] MEDS: levoFLOXacin 750 MG TABLET PO (16:06)
[2023-05-18] MEDS: APIXABAN 2.5 MG TABLET PO (16:07)
[2023-05-18] MEDS: ACETAMINOPHEN 325 MG TABLET 650 MG PO (16:08)
[2023-05-19 13:37] LABS: Homocysteine 11.3 umol/L (<10.4)
[2023-05-23 00:49] LABS: Hexagonal Phase Confirm Negative (Negative); Lupus dRVVT Screen 40 sec (<=45); PTT-LA Screen 58 sec (<=40)
[2023-05-23 13:17] LABS: Factor V (Leiden) Mutation NEGATIVE
[2023-05-26 19:34] LABS: Anti Cardio Antibody IgM <2.0 MPL-U/mL (<20.0); Anti Cardiolipin Antibody IgA <2.0 APL-U/mL (<20.0); Anti Cardiolipin Antibody IgG <2.0 GPL-U/mL (<20.0)
== END 2023-05-18 16:33 | DRG 177 ==
LOC: ANHED 15:56 → ANH3MEDSUR 16:49 → ANH3MED 19:42
PROVIDERS: Nurse Practitioner; Nurse Practitioner Acute Care; Physician Assistant; Student in an Organized Health Care Education/Training Program; Admitting Provider Hospitalist; Emergency Provider Emergency Medicine; PCP Internal Medicine Geriatric Medicine; Visit Provider Student in an Organized Health Care Education/Training Program
DX: J85.1 Abscess of lung with pneumonia (principal); I26.99 Other pulmonary embolism without acute cor pulmonale; H33.21 Serous retinal detachment, right eye; I82.431 Acute embolism and thrombosis of right popliteal vein; S32.020A Wedge compression fracture of second lumbar vertebra, initial encounter for closed fracture; I82.443 Acute embolism and thrombosis of tibial vein, bilateral; I82.453 Acute embolism and thrombosis of peroneal vein, bilateral; W18.30XA Fall on same level, unspecified, initial encounter; R42 Dizziness and giddiness; I10 Essential (primary) hypertension; E78.5 Hyperlipidemia, unspecified; D69.6 Thrombocytopenia, unspecified; R91.8 Other nonspecific abnormal finding of lung field; E11.65 Type 2 diabetes mellitus with hyperglycemia; Z96.651 Presence of right artificial knee joint; Z90.710 Acquired absence of both cervix and uterus; Z86.73 Personal history of transient ischemic attack (TIA), and cerebral infarction without residual deficits
CPT/HCPCS: 32408; 36415; 70450; 70553; 71045; 71250; 71275; 72131; 80053; 81241; 81291; 82248; 82550; 82607; 82746; 82948; 83036; 83090; 83605; 83721; 83735; 84100; 84145; 84439; 84443; 84480; 84484; 85025; 85027; 85055; 85303; 85306; 85598; 85610; 85613; 85652; 85730; 86140; 86147; 86480; 87040; 87070; 87075; 87081; 87102; 87205; 87206; 88305; 88312; 92610; 93005; 93306; 93880; 93970; 96360; 96372; 97110; 97116; 97161; 97166; 97530; 97535; 99285; A9270; A9577; G0378; J1650; J1815; J7030; J7512; Q9967

== ENCOUNTER 2023-06-02 14:03 | Inpatient (IN) | payer MEDICARE, BC, SELFPAY ==
[2023-06-02] VITALS (9 sets, daily range): BP systolic 88–103; BP diastolic 52–60; PULSE 107–125; RESP 10–15; TEMP 36.3–36.6; O2SAT 99–100; BMI 25.0
--- NOTE | 2023-06-02 | ECG_ITS ---
Measurements Intervals [place] Rate: 122 P: 68 HI: 149 QRS: -35 QRSD: 78 T: 126 QT: 312 QTc: 446 Interpretive Statements SINUS TACHYCARDIA LEFT AXIS DEVIATION POOR R WAVE PROGRESSION, ANTERIOR LEADS ST-T WAVE ABNORMALITY IN HIGH LATERAL LEADS- CONSIDER ISCHEMIA BASELINE ARTIFACT- I, AVL, V1-V2 ABNORMAL ECG COMPARED TO ECG 05/14/2023 13:33:46 SINUS TACHYCARDIA NOW PRESENT ST-T WAVE ABNORMALITY NOW PRESENT Electronically Signed On 06-04-2023 13:01:14 CDT by Jarocho Hartley D.O.
--- NOTE | ~2023-06-02 | XR_ITS ---
Portable chest x-ray Comparison: 06/03/2023 Clinical History: Shortness of breath Findings: Left-sided PICC line remains in place. Probable minimal central pulmonary edema pattern, w ith possible minimal left pleural effusion. Cardiomediastinal silhouette is stable. Bones and soft t issues are unremarkable. Impression: Probable minimal central pulmonary edema pattern with possible minimal left pleural effusion. Stable left-sided PICC line. Reviewed, dictated and finalized at location . Impression: Probable minimal central pulmonary edema pattern with possible minimal left ple ural effusion. Stable left-sided PICC line.
--- NOTE | ~2023-06-02 | BM_ITS ---
EXAMINATION: CCL bone marrow asp w bx diag DATE: 06/06/2023 10:39 INDICATION: Pancytopenia. TECHNIQUE: A time-out was performed to verify the patient's name, date of , and procedure to b e performed. The procedure including the risks, benefits, and alternatives was discussed with the pat ient. Risks discussed included bleeding and infection. The patient understood the risks and agreed to proceed. The skin overlying the left ilium was prepped and draped in usual sterile fashion. Anesth etic was administered with 1% lidocaine subcutaneously. An 11 gauge needle was inserted into the iliu m with fluoroscopic guidance. Bone marrow was aspirated. An 8 gauge needle was then inserted into the ilium with fluoroscopic guidance. A core bone marrow biopsy was obtained. There were no immediate co mplications. Fluoroscopy exposure time was 0.1 minutes. The total number of images was 43. FINDINGS: Real-time fluoroscopy demonstrates a marker overlying the left posterior superior iliac spi ne. IMPRESSION: 1. Fluoro-guided bone marrow aspiration. 2. Fluoro-guided bone marrow core biopsy. Reviewed, dictated and finalized at location A.
--- NOTE | ~2023-06-02 | CT_ITS ---
EXAMINATION:CT diagnostic chest wo con DATE: 06/05/2023 10:03 INDICATION: Cavitary lesion. TECHNIQUE: Computed tomography (CT) of the chest was performed without intravenous contrast. Automate d exposure control and iterative reconstruction technique were employed. The dose-length product (DLP ) was 186.87 mGy-cm. COMPARISON: Chest CT 05/15/2023 FINDINGS: The lungs demonstrate mild atelectasis. In the left lobe upper lobe, there is a 16 mm mm ca vitary nodule, decreased from 23 mm on 05/15/2023. There is a small left pleural effusion. The heart s ize is normal. There are coronary artery calcifications. No pericardial effusion. A left upper extrem ity peripherally inserted central venous catheter (PICC) is seen with tip in the superior vena cava. There are gallstones in the gallbladder, which is normal in size. Splenomegaly is noted. There is a l arge volume of ascites. There is mild thoracic spondylosis.. IMPRESSION: 1. Cavitary nodule in left lung upper lobe with interval improvement, consistent with pneumonia. 2. Small left pleural effusion. 3. Large volume of ascites. 4. Splenomegaly. Reviewed, dictated and finalized at location A. IMPRESSION: 1. Cavitary nodule in left lung upper lobe with interval improvement, consisten t with pneumonia. 2. Small left pleural effusion. 3. Large volume of ascites. 4. Splenomegaly.
--- NOTE | ~2023-06-02 | US_ITS ---
EXAMINATION: US venous doppler [facility] DATE: 06/07/2023 17:20 INDICATION: Swelling, DVT . TECHNIQUE: Grayscale images without and with compression and Doppler images of the bilateral lower ex tremity veins were obtained. COMPARISON: 05/15/2023 FINDINGS: Augmentation not performed during this examination due to the history of recent DVT. The right common femoral vein, profunda (deep) femoral vein, femoral vein, popliteal vein, peroneal v ein, posterior tibial veins, gastrocnemius vein, and greater saphenous vein are patent. The left common femoral vein, profunda (deep) femoral vein, femoral vein, popliteal vein, peroneal v ein, posterior tibial veins, gastrocnemius vein, and greater saphenous vein are patent. IMPRESSION: 1. Patent bilateral lower extremity veins. No evidence of deep venous thrombosis. Reviewed, dictated and finalized at location K. IMPRESSION: 1. Patent bilateral lower extremity veins. No evidence of deep venous thrombos is.
--- NOTE | ~2023-06-02 | XR_ITS ---
XR chest PICC line DATE: 06/03/2023 08:22 INDICATION: PICC line placement TECHNIQUE: Portable supine AP view on 06/03/2023 at 0811 hours COMPARISON: 05/16/2023 portable AP chest FINDINGS: Left upper extremity PICC line is placed since 05/08/2023, the distal tip overlying superior vena cava. Again noted is a cavitary lesion of the left upper lobe. There is mild infiltrate or atelectasis in the left lower lung and to a minimal extent right lower frances ng. No pleural effusion or pulmonary vascular congestion or pneumothorax is noted. Diffuse osteopenia. IMPRESSION: Left upper extremity PIC catheter tip overlies superior cava Reviewed, dictated and finalized at Location A. Reviewed, dictated and finalized at location A.
--- NOTE | ~2023-06-02 | CT_ITS ---
EXAMINATION: CT brain wo con DATE: 06/11/2023 13:06 INDICATION: Confusion TECHNIQUE: Computed tomography (CT) of the head was performed without intravenous contrast. Sagittal and coronal reconstructions were performed. The mA was adjusted according to patient size. Iterative reconstruction technique was employed. The dose-length product was 605.33 mGy-cm. COMPARISON: head CT dated 05/14/2023 and brain MR dated 05/15/2023 FINDINGS: No acute intracranial hemorrhage, acute infarction or abnormal extra axial fluid collection. Small ol d lacunar infarct at the head of the left caudate nucleus. There is moderate scattered white matter h ypoattenuation consistent with chronic small vessel ischemic disease. Symmetric prominence of the sul ci and ventricles consistent with moderate age-appropriate diffuse cerebral volume loss. No mass/mass effect. Changes of bilateral intraocular lens replacement. The orbits, paranasal sinuses and mastoid air cells are normal. Intracranial calcified cerebral atherosclerosis is noted. IMPRESSION: 1. No acute intracranial process. 2. Small old lacunar infarct at the left caudate nucleus and moderate scattered white matter hypoatte nuation consistent with chronic small vessel ischemic disease. Reviewed, dictated and finalized at location A. IMPRESSION: 1. No acute intracranial process. 2. Small old lacunar infarct at the left caudate nucleus and moderate scattered white matter hypoattenuation consistent with chronic small vessel ischemic dis ease.
--- NOTE | ~2023-06-02 | US_ITS ---
Abdominal Sonogram: Real-time sonographic imaging of the abdomen was performed. Clinical History: Pancytopenia Findings: The liver appears heterogeneous, with somewhat nodular contour. No intrahepatic biliary di latation. Main portal vein demonstrates normal direction of flow. The spleen is enlarged, measuring 1 6 cm in length. The gallbladder is well distended, and contains echogenic, shadowing gallstones. No gallbladder wall thickening. The common bile duct measures 2 mm. The visualized pancreas, aorta, and IVC are unremarkable. The right kidney measures 10.4 cm in length and the left kidney measures 9.7 cm. There is no hydronephrosis or renal calculus. Impression: Heterogeneous hepatic echotexture, with suspected mild nodularity the contour. Findings suggest cirrh otic change. Correlate clinically. Splenomegaly, which could also be related to cirrhosis. Cholelithiasis. Reviewed, dictated and finalized at [facility]. Impression: Heterogeneous hepatic echotexture, with suspected mild nodularity the contour. Findings suggest cirrhotic change. Correlate clinically. Splenomegaly, which could also be related to cirrhosis. Cholelithiasis.
--- NOTE | ~2023-06-02 | CT_ITS ---
EXAMINATION: CT abdomen pelvis wo con DATE: 06/10/2023 12:00 INDICATION: Ascites. Possible cirrhosis. TECHNIQUE: Computed tomography (CT) of the abdomen and pelvis was performed without intravenous contr ast. The dose-length product was 888.57 mGy-cm. Automated exposure control and iterative reconstructi on technique were employed. COMPARISON: Ultrasound dated 06/06/[address] lumbar spine dated 05/17/2023. FINDINGS: There is cirrhosis of the liver which appears atrophic. There is splenomegaly. Findings com patible with portal venous hypertension. There is moderate ascites of the abdomen and pelvis. There a re changes of ventral abdominal wall hernia with persistent ventral hernia below the mesh containing fluid. There is diffuse subcutaneous edema. There are gallstones. There is an exophytic right renal c yst. There are small collateral vessels of the upper abdomen. Vela catheter present in the bladder. Generalized osteopenia. There is a subacute L1 burst fracture. IMPRESSION: 1. 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 2: Moderate ascites. 3: Cholelithiasis. 4: Diffuse subcutaneous edema, compatible with anasarca. 5: Subacute L1 burst fracture. Reviewed, dictated and finalized at location A.
[2023-06-02 14:29] LABS: Basophils Percent Auto 0.1 % (0.2-1.2); Hematocrit 29.1 % (37.0-47.0); Hemoglobin 10.1 g/dL (12.0-15.0); Immature Granulocyte Percent A 1.4 % (0-0.5); Immature Platelet Fraction Pct 4.1 % (0.9-11.2); Lymphocytes Absolute Auto 0.27 K/mm3 (0.9-3.2); Lymphocytes Percent Auto 3.8 % (18.3-44.2); Mean Corpuscular HGB Conc 34.7 g/dl (32-36); Mean Corpuscular Hemoglobin 33.1 pg (26-34); Mean Corpuscular Volume 95.4 fl (80-100); Mean Platelet Volume 11.8 fl (7.4-10.4); Monocytes Absolute Auto 0.3 K/mm3 (0.1-0.6); Monocytes Percent Auto 4.3 % (2.6-8.5); Neutrophils Absolute Auto 6.5 K/mm3 (1.3-6.7); Neutrophils Percent Auto 90.4 % (45.5-73.1); Red Blood Count 3.05 M/mm3 (4.2-5.4); Red Cell Distribution Width 17.2 % (11.5-14.5); White Blood Count 7.2 K/mm3 (4.5-10.0)
[2023-06-02 14:37] LABS: Alanine Aminotransferase 24 U/L (6-35); Albumin Level 2.5 g/dL (3.5-5.1); Alkaline Phosphatase 67 U/L (38-126); Anion Gap 5 mmol/L (8-16); Aspartate Amino Transferase 23 U/L (14-36); Bilirubin,Total 1.2 mg/dL (0.2-1.3); Blood Urea Nitrogen 28 mg/dL (7-17); Calcium 7.7 mg/dL (8.4-10.2); Carbon Dioxide 22 mmol/L (22-30); Chloride 102 mmol/L (98-107); Estimated Glomerular Filt Rate 60; Glucose 311 mg/dL (65-110); Potassium 4.3 mmol/L (3.4-5.0); Sodium 129 mmol/L (137-145)
[2023-06-02 14:38] LABS: INR 1.4; Prothrombin Time 18.2 Seconds (11.1-14.7)
[2023-06-02 14:39] LABS: Partial Thromboplastin Time 25.1 SECONDS (22.3-36.8)
[2023-06-02 14:46] LABS: Platelet Count Result 22 k/mm3 (150-375)
[2023-06-02 14:47] LABS: Ovalocytes 1+ (NORMAL); Platelet Estimate Decreased (Adequate); Schistocytes None Seen (NORMAL)
--- NOTE | 2023-06-02 14:57 | ED.GENADULT ---
HPI - General Adult General Chief complaint: Recheck/Abnormal Lab/Rx Stated complaint: abn clotting Time Seen by Provider: 06/02/23 14:07 History of Present Illness HPI narrative: Patient is an 82-year-old female who presents to the ER for evaluation of thrombocytopenia. Patient has history of chronic thrombocytopenia but is acutely worsened over the last couple days. She has had multiple critical results. Patient is currently being treated for DVT/PE needed with Eliquis. She was also on prednisone. She typically sees Dr. Pickard. Currently she is at [facility] and rehab. She had been admitted here for a lung abscess/pneumonia as well as burst fracture. She was found to have the lower extremity DVT/PE. Patient has no reports of easy bruising or easy bleeding. Patient does have scattered bruising that is felt to be related to her care. She has had no recent fall and has not struck her head. She has no headache/change in vision/numbness/tingling. Related Data Home Medications Medication Instructions Recorded Confirmed glimepiride 4 mg tablet 4 mg PO BID 10/10/22 06/02/23 lisinopril 20 mg tablet 20 mg PO DAILY 10/10/22 06/02/23 oxybutynin chloride 10 mg 10 mg PO DAILY 10/10/22 06/02/23 tablet,extended release 24 hr potassium chloride 10 mEq 20 meq PO DAILY 10/10/22 06/02/23 tablet,extended release pravastatin 40 mg tablet 40 mg PO DAILY 10/10/22 06/02/23 propranolol 40 mg tablet 40 mg PO BID 10/10/22 06/02/23 acyclovir 400 mg tablet 40 mg PO TID 05/14/23 06/02/23 ergocalciferol (vitamin D2) 1,250 1,250 mcg PO WEEKLY 05/14/23 06/02/23 mcg (50,000 unit) capsule prednisone 20 mg tablet 20 mg PO BID 05/14/23 06/02/23 tramadol 50 mg tablet 50 mg PO Q6H PRN Pain (Scale Score 05/14/23 06/02/23 4-6) Allergies Allergy/AdvReac Type Severity Reaction Status Date / Time Penicillins Allergy Mild HIVES Verified 05/14/23 13:05 Review of Systems Review of Systems: All systems reviewed & are unremarkable except as noted in HPI and below Constitutional: Constitutional: Denies chills, Reports fatigue and Denies fever(s) ENT: Denies nasal congestion and Denies sore throat Cardiovascular: Cardiovascular: Denies chest pain, Denies rapid heart rate and Denies radiating jaw, neck or arm pain Respiratory: Respiratory: Denies cough and Denies dyspnea Gastrointestinal: Gastrointestinal: Denies abdominal pain, Denies nausea and Denies vomiting Neurologic: Denies headache(s), Denies focal weakness and Denies numbness Hematologic/Lymphatic: Hematologic/Lymphatic: Denies easy bleeding and Reports easy bruising PMFSH Past Medical History Medical History Hyperlipidemia Hypertension Retinal detachment, right Type 2 diabetes mellitus Surgical History Surgical History History of cataract extraction History of intestinal surgery Related to bowel obstruction, patient cannot provide further details. History of partial hysterectomy History of right knee joint replacement Family History Family History Son Acute myocardial infarction Mother Congestive heart failure Father Hypertension Sibling Alzheimer disease ALS (amyotrophic lateral sclerosis) Social History Social History Social History: Surrogate medical decision maker: Jessica Wright, daughter. Code status: Full code. Smoking status: Never smoker Alcohol intake: never Substance use: never Substance use type: does not use Lack of Transportation: No Lack of Food: Never True Current Housing: I Have Housing Concerned About Future Housing: No Difficulty Paying Gas/Electric Bills: Decline to Answer Difficulty Paying for Meds: Decline to Answer Currently Unemployed: Decline to Answer Education: Decline to Answer [place]
--- NOTE | 2023-06-02 16:53 | PM.IMHP ---
H&P: HPI History of Present Illness Date/Time: 06/02/23 17:00 Chief Complaint: Abnormal labs. Narrative: This is a very pleasant 82-year-old female with hypertension, hyperlipidemia, diabetes, chronic thrombocytopenia, deep venous thrombosis, and pulmonary embolism who presented to the emergency department via EMS from [facility] for evaluation of abnormal labs. The patient provides the following history. She is known to myself and the hospitalist service from a recent admission between May 14 and May 18 at which time she was admitted with an L2 burst fracture after a fall. Imaging during that stay also showed findings of possible CVA (brain MRI was negative for acute infarct) and a mass of the left upper lobe which was treated with antibiotics given suspicions for lung abscess (lung biopsy was negative for malignancy). She was also found to have lower extremity DVTs and pulmonary emboli for which she was started on Lovenox and discharged on Eliquis. She has been at rehab since discharge and patient indicates to me that she has gotten increasingly weak and is to the point where she can barely lift her legs off of the bed. She is able to ambulate with a walker with 2 person assist and is mostly in a wheelchair. It looks like she has had issues with soft blood pressures and her antihypertensives have been either discontinued or decreased. Two days ago she was started on Lasix 40 mg b.i.d. due to lower extremity edema. Today she had labs drawn and she was sent to the ED for evaluation after she was found to have a platelet count of 22. She does not have any acute complaints at the time my evaluation and she denies gingival bleeding, epistaxis, hemoptysis, hematemesis, hematuria, melena, and hematochezia. She also denies confusion, nausea, vomiting, chest pain, pleuritic pain, palpitations, and shortness of breath. Review of Systems Review of Systems: Twelve systems were reviewed and are negative except for as per HPI. [facility] Past Medical History Medical History (Updated 06/03/23 @ 14:33 by Rebeka Christopher PA-C) Deep venous thrombosis Hyperlipidemia Hypertension Pulmonary embolism Retinal detachment, right Type 2 diabetes mellitus Surgical History Surgical History History of cataract extraction History of intestinal surgery Related to bowel obstruction, patient cannot provide further details. History of partial hysterectomy History of right knee joint replacement Family History Family History Son Acute myocardial infarction Mother Congestive heart failure Father Hypertension Sibling Alzheimer disease ALS (amyotrophic lateral sclerosis) Social History Social History Social History: Surrogate medical decision maker: Jessica Wright, daughter. Code status: Full code. Smoking status: Never smoker Alcohol intake: never Substance use: never Substance use type: does not use Lack of Transportation: No Lack of Food: Never True Current Housing: I Have Housing Concerned About Future Housing: No Difficulty Paying Gas/Electric Bills: Decline to Answer Difficulty Paying for Meds: Decline to Answer Currently Unemployed: Decline to Answer Education: Decline to Answer Difficulty w/ Childcare or Family Care: Decline to Answer Spiritual care concerns: No Meds Home Medications and Allergies Home Medications Medication Instructions Recorded Confirmed Type glimepiride 4 mg tablet 4 mg PO BID 10/10/22 06/02/23 History lisinopril 20 mg tablet 20 mg PO DAILY 10/10/22 06/02/23 History oxybutynin chloride 10 mg 10 mg PO DAILY 10/10/22 06/02/23 History tablet,extended release 24 hr potassium chloride 10 mEq 20 meq PO DAILY 10/10/22 06/02/23 History tablet,extended release pravastatin 40 mg tablet 40 mg PO DAILY 1
[2023-06-02] MEDS: ARGATROBAN (*BKC) 250 MG in DEXTROSE 5% IN WATER 250 ML IV CONT (17:11)
--- NOTE | 2023-06-02 18:27 | PC.NURSE ---
Report received by MARIXA Zamora with the ED at 1750.
--- NOTE | 2023-06-02 18:27 | ADMGEN ---
This patient, Rachele Hoffman, was admitted to Intensive Care Unit-7 at 1805. Patient/family oriented to hospital policies and general routines including ID bracelet, bed and alarms, visiting hours, pain management, procedures, bathroom and other care routines, personal items, smoking policy, room service/diet, and visiting hours. Information on how to activate the Rapid Response Team has been discussed. Patient/Family are encouraged to report perceived risks to care and to ask questions if they do not understand what they are told or what they should do.
--- NOTE | 2023-06-02 19:13 | PC.NURSE ---
Multiple attempts made to obtain second access. Patient skin and veins are very frail and every successful attempt at an IV has infiltrated. Patient has midline access to right arm that is occupied with Argatroban gtt. Need second access for platelet infusion. Awaiting callback from physician for further orders.
[2023-06-02 20:47] LABS: Partial Thromboplastin Time 103.1 SECONDS (22.3-36.8)
[2023-06-02] MEDS: SODIUM CHLORIDE 0.9% IV 250 ML 30 ML IV CONT (21:00)
[2023-06-02] MEDS: predniSONE 20 MG TABLET PO (22:28)
[2023-06-03] VITALS (18 sets, daily range): BP systolic 89–157; BP diastolic 39–86; PULSE 70–119; RESP 10–28; TEMP 36.3–36.7; O2SAT 96–100
[2023-06-03 01:58] LABS: Anion Gap 4 mmol/L (8-16); Blood Urea Nitrogen 23 mg/dL (7-17); Calcium 7.9 mg/dL (8.4-10.2); Carbon Dioxide 22 mmol/L (22-30); Chloride 104 mmol/L (98-107); Estimated Glomerular Filt Rate > 60; Glucose 245 mg/dL (65-110); Potassium 3.8 mmol/L (3.4-5.0); Sodium 130 mmol/L (137-145)
[2023-06-03 02:34] LABS: Creatinine Urine 64.7 mg/dL; Urea Random Urine 1083 MG/DL
[2023-06-03 02:46] LABS: Sodium Urine Random 11 meq/L
[2023-06-03 03:54] LABS: Free T4 Free Thyroxine Reflex 1.17 ng/dL (0.78-2.19)
[2023-06-03 04:52] LABS: Total Triiodothyronine (T3) 0.54 NG/ML (0.97-1.69)
[2023-06-03 06:43] LABS: Hematocrit 22.6 % (37.0-47.0); Hemoglobin 7.8 g/dL (12.0-15.0); Immature Platelet Fraction Pct 2.4 % (0.9-11.2); Mean Corpuscular HGB Conc 34.5 g/dl (32-36); Mean Corpuscular Hemoglobin 33.8 pg (26-34); Mean Corpuscular Volume 97.8 fl (80-100); Mean Platelet Volume 10.5 fl (7.4-10.4); Red Blood Count 2.31 M/mm3 (4.2-5.4); Red Cell Distribution Width 16.8 % (11.5-14.5)
[2023-06-03 06:52] LABS: Alanine Aminotransferase 21 U/L (6-35); Albumin Level 2.5 g/dL (3.5-5.1); Alkaline Phosphatase 68 U/L (38-126); Anion Gap 3 mmol/L (8-16); Aspartate Amino Transferase 23 U/L (14-36); Bilirubin,Total 0.9 mg/dL (0.2-1.3); Blood Urea Nitrogen 21 mg/dL (7-17); Carbon Dioxide 24 mmol/L (22-30); Chloride 104 mmol/L (98-107); Estimated Glomerular Filt Rate > 60; Glucose 257 mg/dL (65-110); Partial Thromboplastin Time 66.3 SECONDS (22.3-36.8); Potassium 4.1 mmol/L (3.4-5.0); Sodium 131 mmol/L (137-145)
[2023-06-03 06:57] LABS: Platelet Count Result 19 k/mm3 (150-375); White Blood Count 1.9 K/mm3 (4.5-10.0)
[2023-06-03] MEDS: CLINDAMYCIN HCL 150 MG CAP 600 MG PO ×3 (07:06→17:17)
[2023-06-03 08:53] LABS: Hematocrit 24.8 % (37.0-47.0); Hemoglobin 8.4 g/dL (12.0-15.0); Immature Granulocyte Absolute 0.01 K/mm3 (0.00-0.031); Immature Granulocyte Percent A 0.4 % (0-0.5); Immature Platelet Fraction Pct 2.5 % (0.9-11.2); Lymphocytes Absolute Auto 0.19 K/mm3 (0.9-3.2); Lymphocytes Percent Auto 8.4 % (18.3-44.2); Mean Corpuscular HGB Conc 33.9 g/dl (32-36); Mean Corpuscular Hemoglobin 33.3 pg (26-34); Mean Corpuscular Volume 98.4 fl (80-100); Mean Platelet Volume 9.8 fl (7.4-10.4); Monocytes Absolute Auto 0.1 K/mm3 (0.1-0.6); Monocytes Percent Auto 4.9 % (2.6-8.5); Neutrophils Percent Auto 86.3 % (45.5-73.1); Red Blood Count 2.52 M/mm3 (4.2-5.4); Red Cell Distribution Width 16.8 % (11.5-14.5); White Blood Count 2.3 K/mm3 (4.5-10.0)
[2023-06-03] MEDS: INSULIN ASPART (*BKC) 100 UNITS/ML SUB-Q ×4 (08:54→20:28)
[2023-06-03] MEDS: INSULIN GLARGINE (*BKC) 100 UNITS/ML 10 UNITS SUB-Q (08:54)
[2023-06-03] MEDS: oxyBUTYnin CHLORIDE XL 5 MG TAB.ER.24 10 MG PO (08:55)
[2023-06-03] MEDS: PRAVASTATIN SODIUM 20 MG TABLET 40 MG PO (08:55)
[2023-06-03] MEDS: predniSONE 20 MG TABLET PO (08:55)
[2023-06-03] MEDS: GLIMEPIRIDE 2 MG TABLET 4 MG PO ×2 (08:55→16:21)
[2023-06-03] MEDS: PROPRANOLOL HCL 40 MG TABLET PO ×2 (08:55→16:22)
[2023-06-03 09:05] LABS: Partial Thromboplastin Time 47.6 SECONDS (22.3-36.8)
[2023-06-03 09:07] LABS: Glucose Point of Care 238 mg/dl (65-105)
[2023-06-03 09:10] LABS: Platelet Count Result 20 k/mm3 (150-375)
[2023-06-03 09:16] LABS: Platelet Estimate Decreased (Adequate)
[2023-06-03 09:17] LABS: Burr Cells 1+ (NORMAL); Ovalocytes 1+ (NORMAL); Poikilocytosis 1+ (NORMAL); Schistocytes None Seen (NORMAL)
[2023-06-03 09:18] LABS: Tear Drop Cells 1+ (NORMAL)
[2023-06-03 09:44] LABS: Free T4 Free Thyroxine 1.39 ng/mL (0.78-2.19)
[2023-06-03] MEDS: FUROSEMIDE INJ 40 MG/4 ML VIAL 20 MG IV PUSH (10:00)
[2023-06-03] MEDS: POTASSIUM CHLORIDE 20 MEQ ER TABLET PO (10:00)
--- NOTE | 2023-06-03 11:23 | PM.IMPN ---
Progress Note: A&P Assessment and Plan (1) Thrombocytopenia: Code(s): D69.6 - Thrombocytopenia, unspecified Status: Acute Assessment and Plan: Patient has chronic thrombocytopenia and is on prednisone daily per Dr. Stockton. Platelet count has dropped further and a hit workup has been pursued as she was recently on enoxaparin and is now on apixaban. Dr. Lozada recommends continuing prednisone, platelet transfusion, and starting the patient on argatroban drip. (2) Hyponatremia: Code(s): E87.1 - Hypo-osmolality and hyponatremia Status: Acute Assessment and Plan: Sodium is 132 when corrected for glucose. Blood pressures have been running soft and looks like she had been receiving IV fluids though was started on IV furosemide a couple of days ago due to swelling. She may be 3rd spacing (total protein 4.0, albumin 2.5). Albumin x1 ordered followed by furosemide if tolerated. Urine sodium and urea, urine and serum osmolality, and TSH ordered for further evaluation. (3) Hypertension: Code(s): I10 - Essential (primary) hypertension Status: Acute Assessment and Plan: Blood pressures have been running on the low side of normal. Hold antihypertensives for now and monitor closely. (4) Mass of upper lobe of left lung: Code(s): R91.8 - Other nonspecific abnormal finding of lung field Status: Acute Assessment and Plan: Recent biopsy was negative for malignancy and she is currently on antibiotics for suspected lung abscess. Continue clindamycin, d/c on 2 week course levaquin and 6 week course clindamycin on 05/18/23, end date for levaquin has passed, clindamycin should be continued until mid June. (5) Type 2 diabetes mellitus: Code(s): E11.9 - Type 2 diabetes mellitus without complications Status: Acute Assessment and Plan: Random glucose was 311. Recent hemoglobin A1c was 10% and she would likely benefit from long-acting insulin, at least for now while on steroids. Initiate sliding scale insulin, Accu-Cheks, and hypoglycemic protocol. (6) Pulmonary embolism: Qualifiers: Acute cor pulmonale presence: without acute cor pulmonale Chronicity: acute Pulmonary embolism type: unspecified Qualified Code(s): I26.99 - Other pulmonary embolism without acute cor pulmonale Code(s): I26.99 - Other pulmonary embolism without acute cor pulmonale Status: Acute Assessment and Plan: Diagnosed during recent hospitalization. On argatroban drip as above. (7) Deep venous thrombosis: Code(s): I82.409 - Acute embolism and thrombosis of unspecified deep veins of unspecified lower extremity Status: Acute Assessment and Plan: Diagnosed during recent hospitalization. On argatroban drip as above. (8) Closed compression fracture of L2 vertebra: Qualifiers: Encounter type: subsequent encounter Fracture healing: with routine healing Qualified Code(s): S32.020D - Wedge compression fracture of second lumbar vertebra, subsequent encounter for fracture with routine healing Code(s): S32.020A - Wedge compression fracture of second lumbar vertebra, initial encounter for closed fracture Status: Acute Assessment and Plan: TLSO brace when up. She has become increasingly weak with her hospitalizations. No focal deficits on neuro exam. Plan DVT prophylaxis with SCDs and argatroban Gi prophylaxis not indicated Code status full code Subjective Date/time seen: 06/03/23 11:23 Interval history: A 2-year-old female with hypertension, hyperlipidemia, diabetes, history of DVT and PE on Eliquis among other comorbidities is presenting with incidental finding of thrombocytopenia with a platelet of 22 on outpatient lab work and currently being treated by Hematology for this finding with platelet transfusion and argatroban drip. No overnight events noted. No chest pain or shortness of breath. No
--- NOTE | 2023-06-03 11:42 | WPDCNINT ---
Assessment and Plan Assessment and plan (1) Pancytopenia: Code(s): D61.818 - Other pancytopenia Status: Acute Assessment and Plan: Although patient was admitted with diagnosis thrombocytopenia but patient essentially has pancytopenia with low white count anemia and low platelet count. Has history of chronic thrombocytopenia. She was on Lovenox for DVT and PE during the admission and then was discharged on Eliquis. Patient now has been started on argatroban infusion and Hematology has been consulted Hematology has started patient on steroid and ordered workup for hit, anemia and vitamin B12 and folic acid Patient was transfused 2 units of platelets I will defer workup and management to plant science professor at this morning Continue monitor CBC and transfuse blood products as needed Depending on the workup she may need bone marrow biopsy. Smear did not show any schistocytes Will also check TSH, reticulocyte count, stool occult Continue anticoagulation at this time but she may need IVC filter if anticoagulation has to be discontinued due to increased bleeding risk (2) Pulmonary embolism: Qualifiers: Pulmonary embolism type: unspecified Chronicity: acute Acute cor pulmonale presence: without acute cor pulmonale Qualified Code(s): I26.99 - Other pulmonary embolism without acute cor pulmonale Code(s): I26.99 - Other pulmonary embolism without acute cor pulmonale Status: Acute Assessment and Plan: Patient was diagnosed with PE and right lower extremity DVT in April and was started on Eliquis. Patient has now been transition to argatroban infusion due to her thrombocytopenia which will be continued for now (3) Deep venous thrombosis: Code(s): I82.409 - Acute embolism and thrombosis of unspecified deep veins of unspecified lower extremity Status: Acute Assessment and Plan: See above (4) Diabetes mellitus with hyperglycemia: Qualifiers: Diabetes mellitus type: type 2 Diabetes mellitus longterm insulin use: without longterm use Qualified Code(s): E11.65 - Type 2 diabetes mellitus with hyperglycemia Code(s): E11.65 - Type 2 diabetes mellitus with hyperglycemia Status: Acute Assessment and Plan: Continue glimepiride sliding scale insulin and Lantus added for hyperglycemia (5) Hyponatremia: Code(s): E87.1 - Hypo-osmolality and hyponatremia Status: Acute Assessment and Plan: Chronic and stable Monitor (6) Lung abscess: Code(s): J85.2 - Abscess of lung without pneumonia Status: Acute Assessment and Plan: Patient was found to be having lung mass in April and biopsy was done which was negative for any malignancy. Patient was diagnosed with lung abscess and was started on Levaquin and clindamycin. Patient finished 2 weeks of Levaquin and is currently on p.o. clindamycin for total of 6 week course She is currently on room air (7) Closed compression fracture of L2 vertebra: Qualifiers: Encounter type: subsequent encounter Fracture healing: with routine healing Qualified Code(s): S32.020D - Wedge compression fracture of second lumbar vertebra, subsequent encounter for fracture with routine healing Code(s): S32.020A - Wedge compression fracture of second lumbar vertebra, initial encounter for closed fracture Status: Acute Assessment and Plan: TLSO brace when up Pain control PT OT (8) Hyperlipidemia: Code(s): E78.5 - Hyperlipidemia, unspecified Status: Acute Assessment and Plan: Continue statin (9) Lower extremity edema: Code(s): R60.0 - Localized edema Status: Acute Assessment and Plan: Compression stockings and start Lasix Plan DVT prophylaxis -argatroban infusion Nutrition -diet ordered Code Status - Full Code Total Critical Care Time - 40 minutes Due to a high probability of clinically significant, life threatening deterioration
[2023-06-03 11:47] LABS: Lactate Dehydrogenase 203 U/L (120-246)
[2023-06-03 11:52] LABS: Partial Thromboplastin Time 58.1 SECONDS (22.3-36.8)
[2023-06-03 12:22] LABS: Immature Reticulocyte Fraction 13.1 % (3.0-15.9); Reticulocyte Hemoglobin Conten 39.2 pg (28.2-35.7); Reticulocyte Percent 4.76 % (0.7-4.3); Reticulocytes Absolute 0.12 M/mm3 (0.02-0.1)
[2023-06-03 12:34] LABS: Glucose Point of Care 252 mg/dl (65-105)
[2023-06-03 12:38] LABS: Iron 84 ug/dL (37-170)
[2023-06-03 12:45] LABS: Percent Iron Saturation 34 % (20-50)
[2023-06-03 12:54] LABS: Folic Acid 8.2 ng/mL (2.76->20)
[2023-06-03 13:52] LABS: Thyroid Stimulating Hormone Reflex 0.261 uIU/mL (0.465-4.68)
[2023-06-03 13:57] LABS: IFOB Positive Control Positive; Immunochemical Fecal Occult Bl Positive (N)
[2023-06-03] MEDS: CENTRAL LINE FLUSH 10 ML IV PUSH ×2 (14:00→20:30)
[2023-06-03 14:27] LABS: Partial Thromboplastin Time 56.8 SECONDS (22.3-36.8)
[2023-06-03] MEDS: methylPREDNISolone SOD SUCC 125 MG VIAL IV PUSH ×2 (14:57→20:28)
--- NOTE | 2023-06-03 15:58 | PC.NURSE ---
Called central supply at 1501 to order TLSO brace, informed that we do not carry TLSO brace. Reached out to medical ordering supply and spoke to Emma. TLSO brace ordered and will be brought to facility tomorrow.
[2023-06-03 17:13] LABS: Free T4 Free Thyroxine Reflex 1.17 ng/dL (0.78-2.19)
[2023-06-03 17:28] LABS: Hematocrit 26.7 % (37.0-47.0); Hemoglobin 9.1 g/dL (12.0-15.0); Immature Platelet Fraction Pct 2.9 % (0.9-11.2); Mean Corpuscular HGB Conc 34.1 g/dl (32-36); Mean Corpuscular Hemoglobin 33.1 pg (26-34); Mean Corpuscular Volume 97.1 fl (80-100); Mean Platelet Volume 9.5 fl (7.4-10.4); Platelet Count Result 31 k/mm3 (150-375); Red Blood Count 2.75 M/mm3 (4.2-5.4); Red Cell Distribution Width 16.6 % (11.5-14.5); White Blood Count 4.7 K/mm3 (4.5-10.0)
[2023-06-03 17:40] LABS: Glucose Point of Care 270 mg/dl (65-105)
[2023-06-03 21:05] LABS: Glucose Point of Care 272 mg/dl (65-105)
[2023-06-04] VITALS (13 sets, daily range): BP systolic 90–137; BP diastolic 50–70; PULSE 68–109; RESP 14–23; TEMP 35.9–36.7; O2SAT 95–100; BMI 25.6
[2023-06-04] MEDS: CLINDAMYCIN HCL 150 MG CAP 600 MG PO ×4 (00:47→17:05)
[2023-06-04 01:36] LABS: Hemoglobin 8.9 g/dL (12.0-15.0); Immature Platelet Fraction Pct 2.9 % (0.9-11.2); Mean Corpuscular HGB Conc 34.2 g/dl (32-36); Mean Corpuscular Volume 96.3 fl (80-100); Red Cell Distribution Width 16.2 % (11.5-14.5); White Blood Count 3.8 K/mm3 (4.5-10.0)
[2023-06-04 01:40] LABS: Platelet Count Result 25 k/mm3 (150-375)
[2023-06-04 01:45] LABS: Partial Thromboplastin Time 64.1 SECONDS (22.3-36.8)
[2023-06-04 05:11] LABS: Hematocrit 25.9 % (37.0-47.0); Hemoglobin 8.9 g/dL (12.0-15.0); Immature Platelet Fraction Pct 2.9 % (0.9-11.2); Mean Corpuscular HGB Conc 34.4 g/dl (32-36); Mean Corpuscular Hemoglobin 33.3 pg (26-34); Mean Platelet Volume 10.1 fl (7.4-10.4); Red Blood Count 2.67 M/mm3 (4.2-5.4); Red Cell Distribution Width 16.3 % (11.5-14.5); White Blood Count 3.4 K/mm3 (4.5-10.0)
[2023-06-04 05:21] LABS: Alanine Aminotransferase 23 U/L (6-35); Albumin Level 2.6 g/dL (3.5-5.1); Alkaline Phosphatase 70 U/L (38-126); Anion Gap 5 mmol/L (8-16); Aspartate Amino Transferase 23 U/L (14-36); Bilirubin,Total 0.7 mg/dL (0.2-1.3); Blood Urea Nitrogen 28 mg/dL (7-17); Calcium 7.9 mg/dL (8.4-10.2); Carbon Dioxide 25 mmol/L (22-30); Chloride 101 mmol/L (98-107); Estimated Glomerular Filt Rate > 60; Glucose 229 mg/dL (65-110); Magnesium 1.4 mg/dL (1.6-2.3); Platelet Count Result 25 k/mm3 (150-375); Potassium 3.9 mmol/L (3.4-5.0); Sodium 131 mmol/L (137-145)
[2023-06-04] MEDS: CENTRAL LINE FLUSH 10 ML IV PUSH ×3 (05:42→20:08)
[2023-06-04 08:13] LABS: Glucose Point of Care 214 mg/dl (65-105)
[2023-06-04] MEDS: INSULIN GLARGINE (*BKC) 100 UNITS/ML 20 UNITS SUB-Q (08:57)
[2023-06-04] MEDS: INSULIN ASPART (*BKC) 100 UNITS/ML SUB-Q ×4 (08:57→20:16)
[2023-06-04] MEDS: GLIMEPIRIDE 2 MG TABLET 4 MG PO ×2 (09:02→17:06)
[2023-06-04] MEDS: oxyBUTYnin CHLORIDE XL 5 MG TAB.ER.24 10 MG PO (09:02)
[2023-06-04] MEDS: methylPREDNISolone SOD SUCC 125 MG VIAL IV PUSH ×2 (09:03→20:08)
[2023-06-04] MEDS: MAGNESIUM SULF 2 GM/WATER 50ML 2 GM/50 ML BAG IVPB (09:03)
[2023-06-04] MEDS: PRAVASTATIN SODIUM 20 MG TABLET 40 MG PO (09:03)
[2023-06-04] MEDS: POTASSIUM CHLORIDE 20 MEQ ER TABLET PO (09:03)
[2023-06-04] MEDS: ACYCLOVIR 400 MG TABLET PO ×3 (09:03→17:06)
[2023-06-04] MEDS: ALBUMIN HUMAN 25% 25 GM/100 ML 100 ML IVPB (09:04)
--- NOTE | 2023-06-04 09:37 | WPDINTPN ---
Progress Note: A&P Assessment and Plan (1) Pancytopenia: Code(s): D61.818 - Other pancytopenia Status: Acute Assessment and Plan: Although patient was admitted with diagnosis thrombocytopenia but patient essentially has pancytopenia with low white count anemia and low platelet count. She has history of chronic thrombocytopenia and had some workup done as an outpatient since last year. Patient denies having bone marrow biopsy done per. She was on Lovenox for DVT and PE during the last admission in April and then was discharged on Eliquis. Patient now has been started on argatroban infusion and Hematology has been consulted Hematology has started patient on steroid and ordered workup for HIT, anemia and vitamin B12 and folic acid Her stool Hemoccult is positive but hemoglobin has been essentially stable-at PPI Patient was transfused 2 units of platelets. Will transfuse to keep platelet count more than 10,000 unless there are signs of bleeding I will defer workup and management to surveillance sensor officer at this morning Continue monitor CBC and transfuse blood products as needed Depending on the workup she may need bone marrow biopsy. Smear did not show any schistocytes Continue anticoagulation at this time but she may need IVC filter if anticoagulation has to be discontinued due to increased bleeding risk (2) Pulmonary embolism: Qualifiers: Pulmonary embolism type: unspecified Chronicity: acute Acute cor pulmonale presence: without acute cor pulmonale Qualified Code(s): I26.99 - Other pulmonary embolism without acute cor pulmonale Code(s): I26.99 - Other pulmonary embolism without acute cor pulmonale Status: Acute Assessment and Plan: Patient was diagnosed with PE and right lower extremity DVT in April and was started on Eliquis. Patient has now been transition to argatroban infusion due to her thrombocytopenia which will be continued for now (3) Deep venous thrombosis: Code(s): I82.409 - Acute embolism and thrombosis of unspecified deep veins of unspecified lower extremity Status: Acute Assessment and Plan: See above (4) Diabetes mellitus with hyperglycemia: Qualifiers: Diabetes mellitus type: type 2 Diabetes mellitus lobsterman insulin use: without prison use Qualified Code(s): E11.65 - Type 2 diabetes mellitus with hyperglycemia Code(s): E11.65 - Type 2 diabetes mellitus with hyperglycemia Status: Acute Assessment and Plan: Continue glimepiride Continue sliding scale insulin and Lantus Increase Lantus dose (5) Hyponatremia: Code(s): E87.1 - Hypo-osmolality and hyponatremia Status: Acute Assessment and Plan: Chronic and stable Monitor (6) Lung abscess: Code(s): J85.2 - Abscess of lung without pneumonia Status: Acute Assessment and Plan: Patient was found to be having lung mass in April and biopsy was done which was negative for any malignancy. Patient was diagnosed with lung abscess and was started on Levaquin and clindamycin. Patient finished 2 weeks of Levaquin and is currently on p.o. clindamycin for total of 6 week course She is currently on room air (7) Closed compression fracture of L2 vertebra: Qualifiers: Encounter type: subsequent encounter Fracture healing: with routine healing Qualified Code(s): S32.020D - Wedge compression fracture of second lumbar vertebra, subsequent encounter for fracture with routine healing Code(s): S32.020A - Wedge compression fracture of second lumbar vertebra, initial encounter for closed fracture Status: Acute Assessment and Plan: TLSO brace when up Pain control PT OT (8) Hyperlipidemia: Code(s): E78.5 - Hyperlipidemia, unspecified Status: Acute Assessment and Plan: Continue statin (9) Lower extremity edema: Code(s): R60.0 - Localized edema Status: Acute Assessment and Plan: Compression st
--- NOTE | 2023-06-04 10:09 | PM.IMPN ---
Progress Note: A&P Assessment and Plan (1) Pancytopenia: Code(s): D61.818 - Other pancytopenia Status: Acute Assessment and Plan: Hematology has started patient on steroid and ordered workup for HIT, anemia and vitamin B12 and folic acid Her stool Hemoccult is positive but hemoglobin has been essentially stable-at PPI Patient was transfused 2 units of platelets. Will transfuse to keep platelet count more than 10,000 unless there are signs of bleeding I will defer workup and management to beet flumer at this morning Continue monitor CBC and transfuse blood products as needed Depending on the workup she may need bone marrow biopsy. Smear did not show any schistocytes Continue anticoagulation at this time but she may need IVC filter if anticoagulation has to be discontinued due to increased bleeding risk (2) Pulmonary embolism: Qualifiers: Acute cor pulmonale presence: without acute cor pulmonale Chronicity: acute Pulmonary embolism type: unspecified Qualified Code(s): I26.99 - Other pulmonary embolism without acute cor pulmonale Code(s): I26.99 - Other pulmonary embolism without acute cor pulmonale Status: Acute Assessment and Plan: Patient was diagnosed with PE and right lower extremity DVT in April and was started on Eliquis. Patient has now been transition to argatroban infusion due to her thrombocytopenia which will be continued for now (3) Deep venous thrombosis: Code(s): I82.409 - Acute embolism and thrombosis of unspecified deep veins of unspecified lower extremity Status: Acute Assessment and Plan: See above (4) Diabetes mellitus with hyperglycemia: Qualifiers: Diabetes mellitus nursing home insulin use: without extermination inspector use Diabetes mellitus type: type 2 Qualified Code(s): E11.65 - Type 2 diabetes mellitus with hyperglycemia Code(s): E11.65 - Type 2 diabetes mellitus with hyperglycemia Status: Acute Assessment and Plan: Continue glimepiride Continue sliding scale insulin and Lantus Increase Lantus dose (5) Hyponatremia: Code(s): E87.1 - Hypo-osmolality and hyponatremia Status: Acute Assessment and Plan: Chronic and stable Monitor (6) Lung abscess: Code(s): J85.2 - Abscess of lung without pneumonia Status: Acute Assessment and Plan: Patient was found to have a lung mass in April and biopsy was done which was negative for any malignancy. Patient was diagnosed with lung abscess and was started on Levaquin and clindamycin. Patient finished 2 weeks of Levaquin and is currently on p.o. clindamycin for total of 6 week course She is currently on room air (7) Closed compression fracture of L2 vertebra: Qualifiers: Encounter type: subsequent encounter Fracture healing: with routine healing Qualified Code(s): S32.020D - Wedge compression fracture of second lumbar vertebra, subsequent encounter for fracture with routine healing Code(s): S32.020A - Wedge compression fracture of second lumbar vertebra, initial encounter for closed fracture Status: Acute Assessment and Plan: TLSO brace when up Pain control PT OT (8) Hyperlipidemia: Code(s): E78.5 - Hyperlipidemia, unspecified Status: Acute Assessment and Plan: Continue statin (9) Lower extremity edema: Code(s): R60.0 - Localized edema Status: Acute Assessment and Plan: Compression stockings and continue Lasix (10) Thrombocytopenia: Code(s): D69.6 - Thrombocytopenia, unspecified Status: Acute Assessment and Plan: Patient has chronic thrombocytopenia and is on prednisone daily per Dr. Stockton. Platelet count has dropped further and a hit workup has been pursued as she was recently on enoxaparin and is now on apixaban. Dr. Lozada recommends continuing prednisone, platelet transfusion, and starting the patient on argatroban drip. (11) Hypertension:
[2023-06-04] MEDS: FUROSEMIDE INJ 40 MG/4 ML VIAL IV PUSH (10:13)
[2023-06-04] MEDS: ONDANSETRON INJ 4 MG/2 ML VIAL IV PUSH (10:14)
[2023-06-04 10:23] LABS: Hematocrit 24.2 % (37.0-47.0); Hemoglobin 8.3 g/dL (12.0-15.0); Mean Corpuscular HGB Conc 34.3 g/dl (32-36); Mean Corpuscular Hemoglobin 33.1 pg (26-34); Mean Corpuscular Volume 96.4 fl (80-100); Mean Platelet Volume 10.8 fl (7.4-10.4); Red Blood Count 2.51 M/mm3 (4.2-5.4); Red Cell Distribution Width 16.3 % (11.5-14.5); White Blood Count 3.3 K/mm3 (4.5-10.0)
[2023-06-04 10:27] LABS: Platelet Count Result 20 k/mm3 (150-375)
--- NOTE | 2023-06-04 10:45 | PCOTNOTE ---
Attempted to see pt. for occupational therapy evaluation. Pt. currently does not have LSO brace present. [facility] spoke with rehab dept., who agreed to have brace delivered to hospital. Nursing updated. Following.
[2023-06-04 11:21] LABS: Glucose Point of Care 217 mg/dl (65-105)
[2023-06-04 14:32] LABS: Partial Thromboplastin Time 62.4 SECONDS (22.3-36.8)
[2023-06-04 16:52] LABS: Glucose Point of Care 288 mg/dl (65-105)
[2023-06-04] MEDS: HYDROcodone/acetaminophen (*CRX) 5-325 MG TABLET 1 TAB PO (17:52)
[2023-06-04] MEDS: PANTOPRAZOLE SODIUM IV 40 MG VIAL IV PUSH (20:08)
[2023-06-04 20:23] LABS: Glucose Point of Care 234 mg/dl (65-105)
[2023-06-05] VITALS (14 sets, daily range): BP systolic 94–142; BP diastolic 53–95; PULSE 71–115; RESP 12–27; TEMP 36.4–36.8; O2SAT 96–100
[2023-06-05] MEDS: CLINDAMYCIN HCL 150 MG CAP 600 MG PO ×2 (00:06→05:26)
[2023-06-05 02:48] LABS: Hematocrit 23.4 % (37.0-47.0); Hemoglobin 8.1 g/dL (12.0-15.0); Immature Platelet Fraction Pct 2.8 % (0.9-11.2); Mean Corpuscular HGB Conc 34.6 g/dl (32-36); Mean Corpuscular Hemoglobin 33.5 pg (26-34); Mean Corpuscular Volume 96.7 fl (80-100); Mean Platelet Volume 10.2 fl (7.4-10.4); Red Blood Count 2.42 M/mm3 (4.2-5.4); Red Cell Distribution Width 16.1 % (11.5-14.5)
[2023-06-05 02:59] LABS: Alanine Aminotransferase 20 U/L (6-35); Albumin Level 2.8 g/dL (3.5-5.1); Alkaline Phosphatase 56 U/L (38-126); Anion Gap 2 mmol/L (8-16); Aspartate Amino Transferase 19 U/L (14-36); Bilirubin,Total 0.6 mg/dL (0.2-1.3); Blood Urea Nitrogen 29 mg/dL (7-17); Calcium 7.8 mg/dL (8.4-10.2); Carbon Dioxide 26 mmol/L (22-30); Chloride 103 mmol/L (98-107); Estimated Glomerular Filt Rate 60; Glucose 182 mg/dL (65-110); Magnesium 1.8 mg/dL (1.6-2.3); Partial Thromboplastin Time 67.8 SECONDS (22.3-36.8); Potassium 4.2 mmol/L (3.4-5.0); Sodium 131 mmol/L (137-145)
[2023-06-05 03:05] LABS: White Blood Count 1.8 K/mm3 (4.5-10.0)
[2023-06-05 03:06] LABS: Platelet Count Result 18 k/mm3 (150-375)
[2023-06-05] MEDS: CENTRAL LINE FLUSH 10 ML IV PUSH ×3 (05:27→20:37)
[2023-06-05] MEDS: PRAVASTATIN SODIUM 20 MG TABLET 40 MG PO (08:26)
[2023-06-05] MEDS: GLIMEPIRIDE 2 MG TABLET 4 MG PO ×2 (08:26→16:39)
[2023-06-05] MEDS: oxyBUTYnin CHLORIDE XL 5 MG TAB.ER.24 10 MG PO (08:26)
[2023-06-05] MEDS: ACYCLOVIR 400 MG TABLET PO ×3 (08:26→16:39)
[2023-06-05] MEDS: PANTOPRAZOLE SODIUM IV 40 MG VIAL IV PUSH ×2 (08:27→20:37)
[2023-06-05] MEDS: methylPREDNISolone SOD SUCC 125 MG VIAL IV PUSH ×2 (08:27→20:37)
[2023-06-05] MEDS: INSULIN GLARGINE (*BKC) 100 UNITS/ML 20 UNITS SUB-Q (08:30)
[2023-06-05] MEDS: ALBUMIN HUMAN 25% 25 GM/100 ML 100 ML IVPB (08:32)
[2023-06-05] MEDS: FUROSEMIDE INJ 40 MG/4 ML VIAL IV PUSH (08:33)
--- NOTE | 2023-06-05 08:38 | WPDINTPN ---
Progress Note: A&P Assessment and Plan (1) Pancytopenia: Code(s): D61.818 - Other pancytopenia Status: Acute Assessment and Plan: Although patient was admitted with diagnosis thrombocytopenia but patient essentially has pancytopenia with low white count anemia and low platelet count. 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 She was on prednisone p.o.. Patient denies having bone marrow biopsy done per. She was on Lovenox for DVT and PE during the last admission in April and then was discharged on Eliquis. Patient now has been started on argatroban infusion and Hematology has been consulted Hematology has started patient on steroid and ordered workup for HIT, and anemia vitamin B12 and folic acid which are normal Her stool Hemoccult is positive but hemoglobin has been essentially stable-at PPI Patient was transfused 2 units of platelets. Will transfuse to keep platelet count more than 10,000 unless there are signs of bleeding I I have spoken to Dr. Lozada with Hematology by phone this morning he will see the patient this afternoon. Will defer workup and management to collection development librarian Continue monitor CBC and transfuse blood products as needed Depending on the workup she may need bone marrow biopsy. Smear did not show any schistocytes Continue anticoagulation at this time but she may need IVC filter if anticoagulation has to be discontinued due to increased bleeding risk (2) Pulmonary embolism: Qualifiers: Pulmonary embolism type: unspecified Chronicity: acute Acute cor pulmonale presence: without acute cor pulmonale Qualified Code(s): I26.99 - Other pulmonary embolism without acute cor pulmonale Code(s): I26.99 - Other pulmonary embolism without acute cor pulmonale Status: Acute Assessment and Plan: Patient was diagnosed with PE and right lower extremity DVT in April and was started on Eliquis. Patient has now been transition to argatroban infusion due to her thrombocytopenia which will be continued for now (3) Deep venous thrombosis: Code(s): I82.409 - Acute embolism and thrombosis of unspecified deep veins of unspecified lower extremity Status: Acute Assessment and Plan: See above (4) Diabetes mellitus with hyperglycemia: Qualifiers: Diabetes mellitus type: type 2 Diabetes mellitus terminal make up operator insulin use: without terminal make up operator use Qualified Code(s): E11.65 - Type 2 diabetes mellitus with hyperglycemia Code(s): E11.65 - Type 2 diabetes mellitus with hyperglycemia Status: Acute Assessment and Plan: Continue glimepiride Continue sliding scale insulin and Lantus (5) Hyponatremia: Code(s): E87.1 - Hypo-osmolality and hyponatremia Status: Acute Assessment and Plan: Chronic and stable Monitor (6) Lung abscess: Code(s): J85.2 - Abscess of lung without pneumonia Status: Acute Assessment and Plan: Patient was found to be having lung mass in April and biopsy was done which was negative for any malignancy. Patient was diagnosed with lung abscess and was started on Levaquin and clindamycin. Patient finished 2 weeks of Levaquin and is currently on p.o. clindamycin for total of 6 week course She is currently on room air Clindamycin has been associated with thrombocytopenia and pancytopenia I will switch her to Levaquin and Flagyl p.o. and discontinue splint at this time I would also repeat CT chest weight (7) Closed compression fracture of L2 vertebra: Qualifiers: Encounter type: subsequent encounter Fracture healing: with routine healing Qualified Code(s): S32.020D - Wedge compression fracture of second lumbar vertebra, subsequent encounter for fracture with routine healing Code(s): S32.020A - Wedge compression fracture of second lumbar vertebra, initial encounter for closed fracture Status: Acute
[2023-06-05 08:41] LABS: Glucose Point of Care 150 mg/dl (65-105)
[2023-06-05] MEDS: ARGATROBAN (*BKC) 250 MG in DEXTROSE 5% IN WATER 250 ML IV CONT (08:42)
--- NOTE | 2023-06-05 08:48 | PM.IMPN ---
Progress Note: A&P Assessment and Plan (1) Pancytopenia: Code(s): D61.818 - Other pancytopenia Status: Acute Assessment and Plan: Hematology has started patient on steroid and ordered workup for HIT, anemia and vitamin B12 and folic acid Her stool Hemoccult is positive but hemoglobin has been essentially stable-at PPI Patient was transfused 2 units of platelets. Will transfuse to keep platelet count more than 10,000 unless there are signs of bleeding I will defer workup and management to abstract writer at this morning Continue monitor CBC and transfuse blood products as needed Depending on the workup she may need bone marrow biopsy. Smear did not show any schistocytes Continue anticoagulation at this time but she may need IVC filter if anticoagulation has to be discontinued due to increased bleeding risk Awaiting hematology/oncology consultation for further recommendations (2) Pulmonary embolism: Qualifiers: Acute cor pulmonale presence: without acute cor pulmonale Chronicity: acute Pulmonary embolism type: unspecified Qualified Code(s): I26.99 - Other pulmonary embolism without acute cor pulmonale Code(s): I26.99 - Other pulmonary embolism without acute cor pulmonale Status: Acute Assessment and Plan: Patient was diagnosed with PE and right lower extremity DVT in April and was started on Eliquis. Patient has now been transition to argatroban infusion due to her thrombocytopenia which will be continued for now (3) Deep venous thrombosis: Code(s): I82.409 - Acute embolism and thrombosis of unspecified deep veins of unspecified lower extremity Status: Acute Assessment and Plan: See above (4) Diabetes mellitus with hyperglycemia: Qualifiers: Diabetes mellitus [facility] insulin use: without [facility] use Diabetes mellitus type: type 2 Qualified Code(s): E11.65 - Type 2 diabetes mellitus with hyperglycemia Code(s): E11.65 - Type 2 diabetes mellitus with hyperglycemia Status: Acute Assessment and Plan: Continue glimepiride Continue sliding scale insulin and Lantus Increase Lantus dose (5) Hyponatremia: Code(s): E87.1 - Hypo-osmolality and hyponatremia Status: Acute Assessment and Plan: Chronic and stable Monitor (6) Lung abscess: Code(s): J85.2 - Abscess of lung without pneumonia Status: Acute Assessment and Plan: Patient was found to have a lung mass in April and biopsy was done which was negative for any malignancy. Patient was diagnosed with lung abscess and was started on Levaquin and clindamycin. Patient finished 2 weeks of Levaquin and is currently on p.o. clindamycin for total of 6 week course She is currently on room air (7) Closed compression fracture of L2 vertebra: Qualifiers: Encounter type: subsequent encounter Fracture healing: with routine healing Qualified Code(s): S32.020D - Wedge compression fracture of second lumbar vertebra, subsequent encounter for fracture with routine healing Code(s): S32.020A - Wedge compression fracture of second lumbar vertebra, initial encounter for closed fracture Status: Acute Assessment and Plan: TLSO brace when up Pain control PT OT (8) Hyperlipidemia: Code(s): E78.5 - Hyperlipidemia, unspecified Status: Acute Assessment and Plan: Continue statin (9) Lower extremity edema: Code(s): R60.0 - Localized edema Status: Acute Assessment and Plan: Compression stockings and continue Lasix (10) Thrombocytopenia: Code(s): D69.6 - Thrombocytopenia, unspecified Status: Acute Assessment and Plan: Patient has chronic thrombocytopenia and is on prednisone daily per Dr. Stockton. Platelet count has dropped further and a hit workup has been pursued as she was recently on enoxaparin and is now on apixaban. Dr. Lozada recommends continuing prednisone, platelet transfusion,
[2023-06-05] MEDS: metroNIDAZOLE 250 MG TABLET 500 MG PO ×3 (09:23→20:37)
[2023-06-05] MEDS: levoFLOXacin 750 MG TABLET PO (09:24)
--- NOTE | 2023-06-05 11:33 | PCFNICU ---
ICU Rounding Note: Pt current nutrition is DBCC. Nutrition recommendation: supplement change from Ensure Enlive to Glucerna shake. Last recorded weight is 58.2 kg. Bowel Motility:+BM reported 06/04 Labs Reviewed:Glu 182, BUN 29, Na 131, Alb 2.8, Hct 23.4,Hgb 8.1 Meds Noted:Protonix, Lasix, Lantus, Levaquin Skin:Stege II Saccum, Deep Tissue-left buttock Additional Notes: Patient tolerating DBCC diet. Intake about 75% of meals. Patient current with protein modular of Yazan BID for wound healing. Diet supplement change from Ensure Enlive to Glucerna shake /2 to DM patient. Agree with diet orders. Following daily in ICU rounds. Monitor intakes, labs, wound healing, supplement tolerance, weights, plan of care Follow up in 7 days.
[2023-06-05 11:56] LABS: Glucose Point of Care 133 mg/dl (65-105)
[2023-06-05] MEDS: ACETAMINOPHEN 325 MG TABLET 650 MG PO (12:58)
[2023-06-05 14:31] LABS: Partial Thromboplastin Time 67.8 SECONDS (22.3-36.8)
[2023-06-05 17:34] LABS: Glucose Point of Care 194 mg/dl (65-105)
--- NOTE | 2023-06-05 18:05 | PDONCCN ---
HPI - Date of Consult Date/Time: 06/05/23 18:05 Requesting Physician: Claudio Sams MD Primary Care Provider: Jose Martin Boyd MD - Consult Narrative Reason for consult: Pancytopenia and hypercoagulable state Narrative: Rachele Hoffman is a 82 year old female with history of type 2 diabetes, hypertension, hyperlipidemia and thrombocytopenia diagnosed almost 2 years ago. She was seen with Dr. Stockton last August in etiology for thrombocytopenia was not found. According to the patient she had bone marrow biopsy done 2 years ago that did not show any bone marrow disorders. She was also diagnosed with DVT involving the right popliteal and bilateral posterior tibial and peroneal vein in May 14, 2023. CT chest done same time also showed pulmonary embolism at the segmental level of the left lower lobe. She was started on Eliquis. . Patient had CT-guided biopsy of 2.2 cm cavitary left upper lobe lung mass done on May 15, 2023 pathology only showed inflammation suggesting acute pneumonia. She was treated for pneumonia with clindamycin and Levaquin. Patient was discharged home on May 18 on prednisone [address] chest done on June 03 showed splenomegaly, large volume ascites and cavitary nodule in the left upper lobe with interval improvement consistent with pneumonia. Labs at the time of last [place] [address] now down to 18,000. WBC count was 3.8 now down to 1.8. Hemoglobin was 10.2 now down to 8.1. She denies any bleeding. According the patient she also fell 3 weeks ago before developing blood clot. She denies any previous history of thromboembolic events. Review of Systems - Review of Systems All systems reviewed & are unremarkable except as noted in HPI and bel - Neurologic Denies headache(s), Denies focal weakness, Denies numbness PMFSH Medical History: Medical History (Last Updated 06/03/23 @ 14:33 by Rebeka Christopher PA-C) Deep venous thrombosis Hyperlipidemia Hypertension Pulmonary embolism Retinal detachment, right Type 2 diabetes mellitus Surgical History: Surgical History (Last Reviewed 06/03/23 @ 14:32 by Rebeka Christopher PA-C) History of cataract extraction History of intestinal surgery Related to bowel obstruction, patient cannot provide further details. History of partial hysterectomy History of right knee joint replacement Family History: Family History (Last Reviewed 06/03/23 @ 14:32 by Rebeka Christopher PA-C) Son Acute myocardial infarction Mother Congestive heart failure Father Hypertension Sibling Alzheimer disease ALS (amyotrophic lateral sclerosis) - Social History Social History: Social History (Last Reviewed 06/03/23 @ 14:33 by Rebeka Christopher PA-C) Alcohol Use: Alcohol intake: never Substance Use: Substance use: never Substance use type: does not use Others: Spiritual care concerns: No Smoking Status: Smoking status: Never smoker Social Determinants of Health: Has the Lack of Transportation Kept You From Medical Appointments or From Getting Medications?: No Within the Past 12 Months, Were You Worried Whether Your Food Would Run Out Before You Got Money to Buy More?: Never True What is Your Housing Situation Today?: I Have Housing Are You Worried That in the Next 2 Months, You May Not Have Your Own Housing to Live In?: No Do You Have Trouble Paying Your Heating Or Electricity Bill?: Decline to Answer Do You Have Trouble Paying For Medicines?: Decline to Answer Are You Currently Unemployed and Looking for Work?: Decline to Answer Highest Level of Education Completed: Decline to Answer Do You Have Trouble With Childcare or the Care of a Family Member?: Decline to Answer Exam - Vital Signs Vital Signs - 24 hr 06/04/23 20:00 06/04/23 20:00 06/04/23 20:00 Temperature 36.6 C Pulse Rate 91 91 Respiratory Rate 18 Blood
[2023-06-05] MEDS: INSULIN ASPART (*BKC) 100 UNITS/ML SUB-Q (20:36)
[2023-06-05] MEDS: HYDROcodone/acetaminophen (*CRX) 5-325 MG TABLET 1 TAB PO (20:36)
[2023-06-05 20:57] LABS: Glucose Point of Care 210 mg/dl (65-105)
[2023-06-05 21:03] LABS: Heparin Induced Platelet Antib Negative (Negative)
[2023-06-06] VITALS (84 sets, daily range): BP systolic 91–130; BP diastolic 57–80; PULSE 82–126; RESP 8–30; TEMP 36.1–37.2; O2SAT 83–100
--- NOTE | 2023-06-06 | ECHOL_ITS ---
Patient Info Name: Rachele Hoffman Age: 82 years : 1940 Gender: Female Ht: 59 in Wt: 128 lbs BSA: 1.57 m2 HR: 79 bpm BP: 115 / 75 mmHg Heart Rhythm: Sinus Rhythm Technical Quality: Fair Exam Date: 06/06/2023 11:03 AM Exam Location: [facility] Pulmonary Exam Room: ICU7 Patient Status: Inpatient Admit Date: 06/03/2023 Staff Ordering Physician: Gregory Walker MD Tint Layer: Amparo Martinez RDCS Attending Provider: Claudio Sams MD Referring Physician: Tung Lozada MD; Exam Type: CA echo doppler color flow Study Info Indications - ASICITES JENNIFER R/O PERICARDIAL EFFUSION EVAL LV RV Complete two-dimensional, color flow and Doppler transthoracic echocardiogram is performed. Limited two-dimensional transthoracic echocardiogram is performed. Summary 1. Complete two-dimensional, color flow and Doppler transthoracic echocardiogram is performed. 2. Left ventricular chamber dimension is normal. 3. Left ventricular systolic function is hyperdynamic, estimated at >70%. 4. There is no increased left ventricular wall thickness. 5. Left atrial chamber dimension is mildly enlarged. 6. The mitral valve annulus is mildly calcified. 7. There is mild tricuspid valve regurgitation. 8. There is small pericardial effusion. Left Ventricle Left ventricular chamber dimension is normal. Left ventricular systolic function is hyperdynamic, estimated at >70%. There is no increased left ventricular wall thickness. Right Ventricle Right ventricular chamber dimension is normal. Right ventricular systolic function is normal. Left Atria Left atrial chamber dimension is mildly enlarged. Right Atria Right atrial chamber dimension is normal. Atrial Septum Intact interatrial septum visualized by color flow imaging. Aortic Valve The aortic valve is not well visualized. Pulmonic Valve The pulmonic valve is not well visualized. Mitral Valve The mitral valve has normal leaflets. The mitral valve annulus is mildly calcified. Tricuspid Valve The tricuspid valve leaflets are normal. There is mild tricuspid valve regurgitation. No pulmonary hypertension, estimated pulmonary arterial systolic pressure is 34 mmHg. Pericardium/Pleural The pericardium appears normal. There is small pericardial effusion. Inferior Vena Cava Normal inferior vena cava with >50% collapse upon inspiration consistent with normal right atrial pressure, 5 mmHg. Aorta The aortic root size at the sinus of Valsalva is normal. Tricuspid Valve Name Value Normal TV Regurgitation Doppler TR Peak Velocity 269 cm/s TR Peak Gradient 26 mmHg Estimated PAP/RSVP RA Pressure 5 mmHg <=5 PA Systolic Pressure 34 mmHg <36 RV Systolic Pressure 34 mmHg <36 Ventricles Name Value Normal LV Fractional Shortening/Ejection Fraction 2D/MM LV Diastolic Volume (4C MOD) 43 ml LV EF (4C MO
[2023-06-06 00:06] LABS: Platelet Antibody, Direct IgG NEGATIVE (NEGATIVE)
[2023-06-06 02:15] LABS: Partial Thromboplastin Time 64.3 SECONDS (22.3-36.8)
[2023-06-06] MEDS: metroNIDAZOLE 250 MG TABLET 500 MG PO ×3 (05:18→20:56)
[2023-06-06] MEDS: CENTRAL LINE FLUSH 10 ML IV PUSH ×3 (05:19→20:57)
[2023-06-06 05:36] LABS: Hematocrit 24.4 % (37.0-47.0); Hemoglobin 8.4 g/dL (12.0-15.0); Immature Platelet Fraction Pct 3.7 % (0.9-11.2); Mean Corpuscular HGB Conc 34.4 g/dl (32-36); Mean Corpuscular Hemoglobin 33.2 pg (26-34); Mean Corpuscular Volume 96.4 fl (80-100); Mean Platelet Volume 10.7 fl (7.4-10.4); Red Blood Count 2.53 M/mm3 (4.2-5.4); Red Cell Distribution Width 15.9 % (11.5-14.5); White Blood Count 2.1 K/mm3 (4.5-10.0)
[2023-06-06 05:43] LABS: Alanine Aminotransferase 21 U/L (6-35); Alkaline Phosphatase 49 U/L (38-126); Anion Gap 4 mmol/L (8-16); Aspartate Amino Transferase 20 U/L (14-36); Bilirubin,Total 0.7 mg/dL (0.2-1.3); Blood Urea Nitrogen 37 mg/dL (7-17); Calcium 8.2 mg/dL (8.4-10.2); Carbon Dioxide 29 mmol/L (22-30); Chloride 102 mmol/L (98-107); Estimated Glomerular Filt Rate > 60; Glucose 104 mg/dL (65-110); Magnesium 1.7 mg/dL (1.6-2.3); Potassium 3.7 mmol/L (3.4-5.0); Sodium 135 mmol/L (137-145)
[2023-06-06 06:39] LABS: Platelet Count Result 15 k/mm3 (150-375)
--- NOTE | 2023-06-06 07:17 | PM.IMPN ---
Progress Note: A&P Assessment and Plan (1) Pancytopenia: Code(s): D61.818 - Other pancytopenia Status: Acute Assessment and Plan: Hematology has started patient on Solu-Medrol and ordered workup for HIT, anemia and vitamin B12 and folic acid Her stool Hemoccult is positive but hemoglobin has been essentially stable in the 8 range; currently on a PPI B12/folate and iron studies normal except low TIBC at 249. SPEP showing a small M-spike. HIT Ab so far are negaitve. Patient was transfused 2 units of platelets 06/02-. Will transfuse to keep platelet count more than 10,000 unless there are signs of bleeding Continue monitor CBC and transfuse blood products as needed Depending on the workup she may need bone marrow biopsy. Smear did not show any schistocytes Continue anticoagulation at this time but she may need IVC filter if anticoagulation has to be discontinued due to increased bleeding risk Consult note reviewed. Appreciate hematology/oncology input Check Ig and SIF/UIF (2) Pulmonary embolism: Qualifiers: Acute cor pulmonale presence: without acute cor pulmonale Chronicity: acute Pulmonary embolism type: unspecified Qualified Code(s): I26.99 - Other pulmonary embolism without acute cor pulmonale Code(s): I26.99 - Other pulmonary embolism without acute cor pulmonale Status: Acute Assessment and Plan: Patient was diagnosed with PE and right lower extremity DVT in April and was started on Eliquis. Patient has now been transition to argatroban infusion due to her thrombocytopenia which will be continued for now (3) Deep venous thrombosis: Code(s): I82.409 - Acute embolism and thrombosis of unspecified deep veins of unspecified lower extremity Status: Acute Assessment and Plan: See above (4) Diabetes mellitus with hyperglycemia: Qualifiers: Diabetes mellitus care home insulin use: without care home use Diabetes mellitus type: type 2 Qualified Code(s): E11.65 - Type 2 diabetes mellitus with hyperglycemia Code(s): E11.65 - Type 2 diabetes mellitus with hyperglycemia Status: Acute Assessment and Plan: A1c 10 in April. The patient's blood glucose was reviewed on 06/06 Glucose remains mostly well controlled. Continue AccuCheks covering with sliding scale. Hypoglycemia protocol available as needed. Continue current medications with glimepiride and Lantus. Consider stopping Amaryl given its side effects profile (5) Hyponatremia: Code(s): E87.1 - Hypo-osmolality and hyponatremia Status: Acute Assessment and Plan: Sodium dropped to 126 early in her admission but better in mid-low 130's now. Stable. Continue to monitir (6) Lung abscess: Code(s): J85.2 - Abscess of lung without pneumonia Status: Acute Assessment and Plan: Patient was found to have a lung mass in April and biopsy was done which was negative for any malignancy. Patient was diagnosed with lung abscess and was started on Levaquin and clindamycin. Patient finished 2 weeks of Levaquin with plans to continue clindamycin for total of 6 week course. No CXR today but CT chest (w/o contrast) showing atelectasis, small left pleural effusion and persistent LULcavitary lesion. Cavitary lesion smaller now. She remains on room air. (7) Closed compression fracture of L1 vertebra: Code(s): S32.010A - Wedge compression fracture of first lumbar vertebra, initial encounter for closed fracture Status: Acute Assessment and Plan: Chest CT showing 'recent-appearing L2 burst fracture' by CT chest 05/14/23. Lumbar spine 05/17 showing it is actually an acute burst fx of L1. TLSO brace when up Pain control PT OT (8) Hyperlipidemia: Code(s): E78.5 - Hyperlipidemia, unspecified Status: Acute Assessment and Plan: LFTs okay. Continue statin (9) Lower extremity edema: Code(s): R60.0 - Localized edema
--- NOTE | 2023-06-06 08:24 | PC.NURSE ---
0820- Placed argatroban gtt on hold per Dr Burks for bone marrow biopsy today.
--- NOTE | 2023-06-06 08:25 | WPDINTPN ---
Progress Note: A&P Assessment and Plan (1) Pancytopenia: Code(s): D61.818 - Other pancytopenia Status: Acute Assessment and Plan: Although patient was admitted with diagnosis thrombocytopenia but patient essentially has pancytopenia with low white count anemia and low platelet count. 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 She was on prednisone p.o.. Patient denies having bone marrow biopsy done in the past She was on Lovenox for DVT and PE during the last admission in April and then was discharged on Eliquis. Patient now has been started on argatroban infusion and Hematology has been consulted Hematology has started patient on steroid and ordered workup for HIT, and anemia vitamin B12 and folic acid which are normal Her stool Hemoccult is positive but hemoglobin has been essentially stable-at PPI Patient was transfused 2 units of platelets. Will transfuse to keep platelet count more than 10,000 unless there are signs of bleeding Bone marrow biopsy ordered and pending IVC filter ordered and pending Continue argatroban infusion which will be held for the procedure Continue monitor CBC and transfuse blood products as needed Smear did not show any schistocytes (2) Pulmonary embolism: Qualifiers: Pulmonary embolism type: unspecified Chronicity: acute Acute cor pulmonale presence: without acute cor pulmonale Qualified Code(s): I26.99 - Other pulmonary embolism without acute cor pulmonale Code(s): I26.99 - Other pulmonary embolism without acute cor pulmonale Status: Acute Assessment and Plan: Patient was diagnosed with PE and right lower extremity DVT in April and was started on Eliquis. Patient has now been transition to argatroban infusion due to her thrombocytopenia which will be continued for now In light of pancytopenia she has a high risk of bleeding. Hematology recommends discontinuation of anticoagulation and placement IVC filter. 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 mellitus terminologist insulin use: without intermediate use Qualified Code(s): E11.65 - Type 2 diabetes mellitus with hyperglycemia Code(s): E11.65 - Type 2 diabetes mellitus with hyperglycemia Status: Acute Assessment and Plan: Continue glimepiride Continue sliding scale insulin and Lantus (5) Hyponatremia: Code(s): E87.1 - Hypo-osmolality and hyponatremia Status: Acute Assessment and Plan: Chronic and stable Monitor (6) Lung abscess: Code(s): J85.2 - Abscess of lung without pneumonia Status: Acute Assessment and Plan: Patient was found to be having lung mass in April and biopsy was done which was negative for any malignancy. Patient was diagnosed with lung abscess and was started on Levaquin and clindamycin. Patient finished 2 weeks of Levaquin and is currently on p.o. clindamycin for total of 6 week course She is currently on room air Clindamycin has been associated with thrombocytopenia and pancytopenia 06/05 Patient was switched to levaquin and Flagyl p.o. 06/[address] chest showed Cavitary nodule in left lung upper lobe with interval improvement, consistent with pneumonia (7) Closed compression fracture of L2 vertebra: Qualifiers: Encounter type: subsequent encounter Fracture healing: with routine healing Qualified Code(s): S32.020D - Wedge compression fracture of second lumbar vertebra, subsequent encounter for fracture with routine healing Code(s): S32.020A - Wedge compression fracture of second lumbar vertebra, initial encounter for closed fracture Sta
[2023-06-06 08:44] LABS: Glucose Point of Care 129 mg/dl (65-105)
[2023-06-06] MEDS: MAGNESIUM SULF 2 GM/WATER 50ML 2 GM/50 ML BAG IVPB (08:48)
[2023-06-06] MEDS: ALBUMIN HUMAN 25% 25 GM/100 ML 100 ML IVPB (08:49)
[2023-06-06] MEDS: oxyBUTYnin CHLORIDE XL 5 MG TAB.ER.24 10 MG PO (08:51)
[2023-06-06] MEDS: methylPREDNISolone SOD SUCC 125 MG VIAL IV PUSH ×2 (08:51→20:55)
[2023-06-06] MEDS: FUROSEMIDE INJ 40 MG/4 ML VIAL IV PUSH (08:51)
[2023-06-06] MEDS: PANTOPRAZOLE SODIUM IV 40 MG VIAL IV PUSH ×2 (08:51→20:55)
[2023-06-06] MEDS: POTASSIUM CHLORIDE 20 MEQ ER TABLET 40 MEQ PO (08:52)
[2023-06-06] MEDS: ACYCLOVIR 400 MG TABLET PO ×3 (08:52→16:25)
[2023-06-06] MEDS: PRAVASTATIN SODIUM 20 MG TABLET 40 MG PO (08:52)
[2023-06-06 09:00] LABS: Immunoglobulin A 94 mg/dL (70-400)
[2023-06-06 09:02] LABS: Immunoglobulin G < 270 mg/dL (700-1600); Immunoglobulin M < 25 mg/dL (40-230)
--- NOTE | 2023-06-06 10:45 | PCFNICU ---
ICU Rounding Note: Pt current nutrition is NPO Nutrition recommendation: DBCC with Yazan BID and Glucerna shakes BID Last recorded weight is 58.5 kg. Bowel Motility:+Bm reported 06/05 Labs Reviewed:BUN 37, Na 129, Alb 3.0,Hgb 8.4,Hct 24.4 Meds Noted:Protonix, Lantus, Lasix, Levaquin Skin: Stege II Saccum, Deep Tissue-left buttock Additional Notes: Patient NPO for bone marrow biopsy today and IVC filter placement. Patient has been tolerating oral diet and supplements of Yazan and Glucerna. Agree with diet orders. Following daily in ICU rounds. Monitor intakes, labs, wound healing, supplement tolerance, weights, plan of care Follow up in 7 days.
[2023-06-06 12:19] LABS: Glucose Point of Care 65 mg/dl (65-105)
[2023-06-06] MEDS: DEXTROSE 50% 25 GM/50 ML SYRINGE IV PUSH (12:20)
[2023-06-06 12:45] LABS: Glucose Point of Care 115 mg/dl (65-105)
[2023-06-06] MEDS: DEXTROSE 5%/0.9% SOD CHL 1,000 ML 50 ML IV CONT (13:20)
[2023-06-06 13:28] LABS: Glucose Point of Care 83 mg/dl (65-105)
--- NOTE | 2023-06-06 13:59 | PM.CNGS ---
Assessment and Plan Assessment and plan (1) Deep venous thrombosis: Code(s): I82.409 - Acute embolism and thrombosis of unspecified deep veins of unspecified lower extremity Status: Acute Assessment and Plan: I have reviewed the imaging and discussed the findings with the patient. She has a DVT and small PE but is not an anticoagulation candidate currently due to her profound thrombocytopenia. Hematology has been consulted and is working this up further. 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 I have discussed the procedure, risks, benefits, and alternatives. Discussions were made about risks of complications from the IVC filter including inferior vena cava thrombosis. Patient understands and is agreeable to proceeding. (2) Pulmonary embolism: Qualifiers: Pulmonary embolism type: unspecified Chronicity: acute Acute cor pulmonale presence: without acute cor pulmonale Qualified Code(s): I26.99 - Other pulmonary embolism without acute cor pulmonale Code(s): I26.99 - Other pulmonary embolism without acute cor pulmonale Status: Acute (3) Pancytopenia: Code(s): D61.818 - Other pancytopenia Status: Acute (4) Cirrhosis of liver with ascites: Code(s): K74.60 - Unspecified cirrhosis of liver; R18.8 - Other ascites Status: Acute History of Present Illness Consult details Consult date: 06/06/23 Reason for consult: other (IVC filter placement) Requesting physician: Tung Lozada MD Narrative: This is an 82-year-old woman who I am asked to see for possible IVC filter placement. She has been hospitalized for 4 days for pancytopenia, pneumonia, DVT, and PE. She just had a bone marrow biopsy today to help identify cause of pancytopenia.She was placed on anticoagulation for the DVT and PE but platelet levels have continued to drop and she is a high risk for spontaneous bleeding. She is currently on argatroban but may not be a candidate for long-term anticoagulation given the low platelet levels. I am asked to see the patient to place an IVC filter. Review of Systems Review of Systems: All systems reviewed & are unremarkable except as noted in HPI and below Constitutional: Constitutional: Denies chills and Denies fever(s) Cardiovascular: Cardiovascular: Denies chest pain and Denies dyspnea Respiratory: Respiratory: Denies dyspnea Gastrointestinal: Gastrointestinal: Denies nausea and Denies vomiting PMFSH Past Medical History Medical History (Updated 06/06/23 @ 14:10 by Armando Little DO) Deep venous thrombosis Hyperlipidemia Hypertension Pulmonary embolism Retinal detachment, right Type 2 diabetes mellitus Surgical History Surgical History (Updated 06/05/23 @ 18:16 by Tung Lozada MD) History of cataract extraction History of intestinal surgery Related to bowel obstruction, patient cannot provide further details. History of partial hysterectomy History of right knee joint replacement Family History Family History Son Acute myocardial infarction Mother Congestive heart failure Father Hypertension Sibling Alzheimer disease ALS (amyotrophic lateral sclerosis) Social History Social History Social History: Surrogate medical decision maker: Jessica Wright, daughter. Code status: Full code. Smoking status: Never smoker Alcohol intake: never Substance use: never Substance use type: does not use Lack of Transportation: No Lack of Food: Never True Current Housing: I Have Housing Concerned About Future Housing: No Difficulty Paying Gas/Electric Bills: Decline to Answer Difficulty Paying for Meds: Decline to Answer Currently Unemployed: Decline to Answer Education: Decline to Answer Difficulty w/ Childcare or Family Care: Decline to Answer Spiritual care con
[2023-06-06 15:54] LABS: UFH SRA Result Interpretation Negative (Negative)
[2023-06-06 16:26] LABS: Glucose Point of Care 123 mg/dl (65-105)
[2023-06-06 16:44] LABS: Partial Thromboplastin Time 67.4 SECONDS (22.3-36.8)
[2023-06-07] VITALS (95 sets, daily range): BP systolic 95–122; BP diastolic 44–86; PULSE 91–133; RESP 8–25; TEMP 36.1–36.8; O2SAT 89–100
[2023-06-07 05:19] LABS: Hematocrit 21.2 % (37.0-47.0); Hemoglobin 7.2 g/dL (12.0-15.0); Immature Platelet Fraction Pct 4.1 % (0.9-11.2); Mean Corpuscular Hemoglobin 33.6 pg (26-34); Mean Corpuscular Volume 99.1 fl (80-100); Mean Platelet Volume 9.9 fl (7.4-10.4); Red Blood Count 2.14 M/mm3 (4.2-5.4); Red Cell Distribution Width 16.6 % (11.5-14.5)
[2023-06-07 05:35] LABS: Alanine Aminotransferase 21 U/L (6-35); Alkaline Phosphatase 52 U/L (38-126); Anion Gap 6 mmol/L (8-16); Aspartate Amino Transferase 22 U/L (14-36); Bilirubin,Total 0.8 mg/dL (0.2-1.3); Blood Urea Nitrogen 41 mg/dL (7-17); Calcium 8.2 mg/dL (8.4-10.2); Carbon Dioxide 24 mmol/L (22-30); Chloride 104 mmol/L (98-107); Estimated Glomerular Filt Rate > 60; Glucose 232 mg/dL (65-110); Magnesium 2.1 mg/dL (1.6-2.3); Phosphorus 2.7 mg/dL (2.5-4.5); Potassium 3.6 mmol/L (3.4-5.0); Sodium 134 mmol/L (137-145)
[2023-06-07 05:37] LABS: Platelet Count Result 15 k/mm3 (150-375); White Blood Count 1.5 K/mm3 (4.5-10.0)
[2023-06-07] MEDS: CENTRAL LINE FLUSH 10 ML IV PUSH ×3 (06:24→21:20)
[2023-06-07] MEDS: metroNIDAZOLE 250 MG TABLET 500 MG PO ×3 (06:24→21:20)
--- NOTE | 2023-06-07 08:51 | WPDINTPN ---
Progress Note: A&P Assessment and Plan (1) Pancytopenia: Code(s): D61.818 - Other pancytopenia Status: Acute Assessment and Plan: Although patient was admitted with diagnosis thrombocytopenia but patient essentially has pancytopenia with low white count anemia and low platelet count. 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 She was on prednisone p.o.. Patient denies having bone marrow biopsy done in the past She was on Lovenox for DVT and PE during the last admission in April and then was discharged on Eliquis. Patient now has been started on argatroban infusion and Hematology has been consulted Hematology has started patient on steroid and ordered workup for HIT, and anemia vitamin B12 and folic acid which are normal Her stool Hemoccult is positive but hemoglobin has been essentially stable until today. Hemoglobin today 7.2. No signs of obvious bleeding. Will discontinue argatroban infusion as patient is going for IVC filter today. Recheck CBC later today. Transfuse if needed. Continue q.12 hours PPI Patient was transfused 2 units of platelets. Will transfuse to keep platelet count more than 10,000 unless there are signs of bleeding Bone marrow biopsy done and reportpending IVC filter ordered and pending Continue monitor CBC and transfuse blood products as needed Smear did not show any schistocytes (2) Pulmonary embolism: Qualifiers: Pulmonary embolism type: unspecified Chronicity: acute Acute cor pulmonale presence: without acute cor pulmonale Qualified Code(s): I26.99 - Other pulmonary embolism without acute cor pulmonale Code(s): I26.99 - Other pulmonary embolism without acute cor pulmonale Status: Acute Assessment and Plan: Patient was diagnosed with PE and right lower extremity DVT in April and was started on Eliquis. Patient has now been transition to argatroban infusion due to her thrombocytopenia. In light of pancytopenia she has a high risk of bleeding. Hematology recommends discontinuation of anticoagulation and placement IVC filter. IVC is General surgery consulted and plan for placement IVC filter today. 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 insulin use: without retirement use Qualified Code(s): E11.65 - Type 2 diabetes mellitus with hyperglycemia Code(s): E11.65 - Type 2 diabetes mellitus with hyperglycemia Status: Acute Assessment and Plan: Continue glimepiride which is currently on hold Continue sliding scale insulin Lantus is on hold (5) Hyponatremia: Code(s): E87.1 - Hypo-osmolality and hyponatremia Status: Acute Assessment and Plan: Chronic and stable Monitor (6) Lung abscess: Code(s): J85.2 - Abscess of lung without pneumonia Status: Acute Assessment and Plan: Patient was found to be having lung mass in April and biopsy was done which was negative for any malignancy. Patient was diagnosed with lung abscess and was started on Levaquin and clindamycin. Patient finished 2 weeks of Levaquin and is currently on p.o. clindamycin for total of 6 week course She is currently on room air Clindamycin has been associated with thrombocytopenia and pancytopenia 06/05 Patient was switched to levaquin and Flagyl p.o. 06/[address] chest showed Cavitary nodule in left lung upper lobe with interval improvement, consistent with pneumonia (7) Closed compression fracture of L2 vertebra: Qualifiers: Encounter type: subsequent encounte
[2023-06-07 08:55] LABS: Glucose Point of Care 193 mg/dl (65-105)
[2023-06-07] MEDS: methylPREDNISolone SOD SUCC 125 MG VIAL IV PUSH ×2 (08:56→20:18)
[2023-06-07] MEDS: ACYCLOVIR 400 MG TABLET PO ×3 (08:56→17:35)
[2023-06-07] MEDS: ALBUMIN HUMAN 25% 25 GM/100 ML 100 ML IVPB (08:56)
[2023-06-07] MEDS: PANTOPRAZOLE SODIUM IV 40 MG VIAL IV PUSH ×2 (08:56→20:17)
[2023-06-07] MEDS: levoFLOXacin 750 MG TABLET PO (08:57)
[2023-06-07] MEDS: POTASSIUM CHLORIDE 20 MEQ ER TABLET 40 MEQ PO (08:57)
[2023-06-07] MEDS: oxyBUTYnin CHLORIDE XL 5 MG TAB.ER.24 10 MG PO (08:57)
[2023-06-07] MEDS: PRAVASTATIN SODIUM 20 MG TABLET 40 MG PO (08:57)
--- NOTE | 2023-06-07 10:39 | PCFNICU ---
Addendum entered by Leticia Nance RD, LDN 06/08/23 11:43: Skin: Stege II Saccum, Deep Tissue-left buttock Original Note: ICU Rounding Note: Pt current nutrition is NPO. Last recorded weight is 60 kg. Bowel Motility:+Bm reported 06/04 Labs Reviewed:Glu 232, BUN 41, Alb 3.0,Hct 21.2,Hgb 7.2 Meds Noted:Lasix, Lantus, Levaquin, Protonix Skin: WNL Additional Notes: Patient is NPO for IVC filter. Oral Intake has been good 50-75% of meals. Patient is drinking diet supplements of Yazan and Glucerna shakes. Agree with diet orders. Following daily in ICU rounds. Monitor intakes, labs, wound healing, supplement tolerance, weights, plan of care Follow up in 7 days.
--- NOTE | 2023-06-07 11:11 | PCOTNOTE ---
The patient treatment was not able to be completed on 06/07 @11:10 am per RN due to patient going down for a procedure and needing to be on bed rest. RN to request updated bedrest orders in the system. Will plan to continue treatment per plan of care.
--- NOTE | 2023-06-07 11:27 | PCPTNOTE ---
Attempted to see patient for PT, however per RN patient was having a procedure and unable to be seen at this time.
--- NOTE | 2023-06-07 12:29 | P.OP_ITS ---
Procedure Note - Detailed Date of Procedure 06/07/23 Pre-op Diagnosis thrombocytopenia Post-op Diagnosis Same Procedure Performed IVC filter placement using ultrasound and fluoroscopic guidance Surgeon Armando Little, DO Anesthesia Local (1% Lidocaine) Indications DVT and PE, pancytopenia Findings Sinosite ultrasound was used to identify the right femoral vein. This was visualized as a compressible vessel just medial to the pulsatile femoral artery. The 18 gauge introducer needle was advanced under ultrasound guidance. Fluoroscopy was then used to guide advancement of the guidewire followed by the dilator and sheath. Final fluoroscopic images demonstrated the filter in proper position at the level of the L3 vertebral body. Description of Procedure Patient was brought back to geochemical laboratory technician suite. she was placed supine geochemical laboratory technician table. Time-out was done to confirm patient procedure. her right groin was prepped and draped in sterile fashion using chlorhexidine prep. SonoSite ultrasound was used to identify the right femoral vein. This was visualized as a compressible vessel just medial to the right femoral artery. 1% lidocaine was infiltrated directly over this area. An 18 gauge introducer needle was then advanced under ultrasound guidance directly into the lumen of the right femoral vein. Dark nonpulsatile blood was aspirated. A 0.035 in guidewire was advanced through the needle under fluoroscopic guidance. The guidewire advanced smoothly and was visualized advancing up into the inferior vena cava. The needle was withdrawn leaving the guidewire in place. A small chante incision was made at the insertion site using an 11 blade scalpel. The 8 [place] dilator and sheath were then advanced over the guidewire under fluoroscopic guidance. The sheath was advanced up to the L3 vertebral body, and then once the sheath was at the upper portion of the L3 vertebral body, the dilator and guidewire were removed. The IVC filter was then inserted into the end of the sheath and then the plunger was used to carefully advanced the filter up the length of the sheath. Once the filter was visualized under fluoroscopy at the tip of the sheath, the sheath was slowly withdrawn to allow the filter to deploy. Once the filter was completely expanded, the sheath was removed and pressure was applied at the insertion site. One final fluoroscopic image was obtained visualizing the IVC filter and proper orientation overlying the L3 vertebral body. After holding pressure for 10 minutes, there is no further blood loss and a sterile dressing was applied. [employer] [place] IVC Filter Estimated Blood Loss 2 Urine Output 175 Complications No immediate complications Condition Stable Disposition ICU [facility] Billing Surgery - Charge Forward: Surgery Billing
[2023-06-07 12:57] LABS: Glucose Point of Care 166 mg/dl (65-105)
[2023-06-07 13:06] LABS: Immature Platelet Fraction Pct 4.3 % (0.9-11.2); Mean Corpuscular HGB Conc 33.3 g/dl (32-36); Mean Corpuscular Hemoglobin 33.3 pg (26-34); Mean Platelet Volume 11.2 fl (7.4-10.4); Red Blood Count 1.92 M/mm3 (4.2-5.4); Red Cell Distribution Width 16.5 % (11.5-14.5)
[2023-06-07 13:12] LABS: Hematocrit 19.2 % (37.0-47.0); Hemoglobin 6.4 g/dL (12.0-15.0)
[2023-06-07 13:13] LABS: Platelet Count Result 12 k/mm3 (150-375)
[2023-06-07 13:14] LABS: White Blood Count 1.2 K/mm3 (4.5-10.0)
[2023-06-07] MEDS: SODIUM CHLORIDE 0.9% IV 250 ML 30 ML IV CONT (17:36)
[2023-06-07 17:40] LABS: Glucose Point of Care 239 mg/dl (65-105)
[2023-06-07] MEDS: INSULIN ASPART (*BKC) 100 UNITS/ML SUB-Q ×2 (17:41→20:24)
[2023-06-07 17:46] LABS: Platelet Ab,Indirect (IgA) NEGATIVE (NEGATIVE); Platelet Ab,Indirect (IgG) NEGATIVE (NEGATIVE); Platelet Ab,Indirect (IgM) NEGATIVE (NEGATIVE)
--- NOTE | 2023-06-07 19:11 | PM.IMPN ---
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 Hgb had been stable but dropped to 6.4 today requiring transfusion. B12/folate normal. Iron studies normal except low TIBC at 249. Smear did not show any schistocytes SPEP showing a small M-spike. HIT Ab so far are negative. IgG <270, IgM <25, IgA 95 (nml) BM Bx 06/06 pending Patient was transfused 2 units of platelets 06/02-. Will transfuse to keep platelet count more than 10,000 unless there are signs of bleeding Continue monitor CBC and transfuse blood products as needed Appreciate hematology/oncology input (2) Pulmonary embolism: Qualifiers: Acute cor pulmonale presence: without acute cor pulmonale Chronicity: acute Pulmonary embolism type: unspecified Qualified Code(s): I26.99 - Other pulmonary embolism without acute cor pulmonale Code(s): I26.99 - Other pulmonary embolism without acute cor pulmonale Status: Acute Assessment and Plan: Patient was diagnosed with PE and right lower extremity DVT in April and was started on Eliquis. Patient was transition to argatroban infusion due to her thrombocytopenia Filter placed today. Argatroban stopped. (3) Deep venous thrombosis: Code(s): I82.409 - Acute embolism and thrombosis of unspecified deep veins of unspecified lower extremity Status: Acute Assessment and Plan: See above (4) Diabetes mellitus with hyperglycemia: Qualifiers: Diabetes mellitus alf insulin use: without termite treater helper use Diabetes mellitus type: type 2 Qualified Code(s): E11.65 - Type 2 diabetes mellitus with hyperglycemia Code(s): E11.65 - Type 2 diabetes mellitus with hyperglycemia Status: Acute Assessment and Plan: A1c 10 in April. The patient's blood glucose was reviewed on 06/07 Glucose remains mostly well controlled. Continue AccuCheks covering with sliding scale. Hypoglycemia protocol available as needed. Continue it monitor. (5) Hyponatremia: Code(s): E87.1 - Hypo-osmolality and hyponatremia Status: Acute Assessment and Plan: Sodium dropped to 126 early in her admission but better in mid-low 130's now. Stable. Continue to monitor (6) Lung abscess: Code(s): J85.2 - Abscess of lung without pneumonia Status: Acute Assessment and Plan: Patient was found to have a lung mass in April and biopsy was done which was negative for any malignancy. Patient was diagnosed with lung abscess and was started on Levaquin and clindamycin. Patient finished 2 weeks of Levaquin with plans to continue clindamycin for total of 6 week course. No CXR today but CT chest (w/o contrast) showing atelectasis, small left pleural effusion and persistent LULcavitary lesion. Cavitary lesion smaller now. She remains on room air. (7) Closed compression fracture of L1 vertebra: Code(s): S32.010A - Wedge compression fracture of first lumbar vertebra, initial encounter for closed fracture Status: Acute Assessment and Plan: Chest CT showing 'recent-appearing L2 burst fracture' by CT chest 05/14/23. Lumbar spine 05/17 showing it is actually an acute burst fx of L1. TLSO brace when up Pain control PT OT (8) Hyperlipidemia: Code(s): E78.5 - Hyperlipidemia, unspecified Status: Acute Assessment and Plan: LFTs okay. Continue statin (9) Lower extremity edema: Code(s): R60.0 - Localized edema Status: Acute Assessment and Plan: Patient with anasarca with ascities, flank edema. Started on Albumin and lasix. Ascites only small to moderate by CT lumbar spine 05/17 so relatively new. Abd US ordered. She has known splenomegaly. Negative fluid balance. Consider para
[2023-06-07 20:24] LABS: Glucose Point of Care 254 mg/dl (65-105)
[2023-06-07] MEDS: INSULIN GLARGINE (*BKC) 100 UNITS/ML 10 UNITS SUB-Q (20:25)
[2023-06-07 20:51] LABS: Hematocrit 24.1 % (37.0-47.0); Hemoglobin 8.3 g/dL (12.0-15.0); Mean Corpuscular HGB Conc 34.4 g/dl (32-36); Mean Corpuscular Hemoglobin 33.5 pg (26-34); Mean Corpuscular Volume 97.2 fl (80-100); Red Blood Count 2.48 M/mm3 (4.2-5.4)
[2023-06-07 20:53] LABS: White Blood Count 1.8 K/mm3 (4.5-10.0)
[2023-06-07 20:57] LABS: Platelet Count Result 14 k/mm3 (150-375)
[2023-06-08] VITALS (75 sets, daily range): BP systolic 109–155; BP diastolic 52–80; PULSE 89–152; RESP 9–25; TEMP 36.5–37.1; O2SAT 84–100
[2023-06-08 00:09] LABS: Anion Gap 5 mmol/L (8-16); Blood Urea Nitrogen 35 mg/dL (7-17); Calcium 8.5 mg/dL (8.4-10.2); Carbon Dioxide 27 mmol/L (22-30); Chloride 105 mmol/L (98-107); Estimated Glomerular Filt Rate > 60; Glucose 221 mg/dL (65-110); Magnesium 2.1 mg/dL (1.6-2.3); Phosphorus 1.9 mg/dL (2.5-4.5); Potassium 4.3 mmol/L (3.4-5.0); Sodium 137 mmol/L (137-145)
[2023-06-08 07:28] LABS: Hematocrit 24.3 % (37.0-47.0); Hemoglobin 8.2 g/dL (12.0-15.0); Mean Corpuscular HGB Conc 33.7 g/dl (32-36); Mean Corpuscular Hemoglobin 33.1 pg (26-34); Red Blood Count 2.48 M/mm3 (4.2-5.4); Red Cell Distribution Width 16.4 % (11.5-14.5)
[2023-06-08 07:46] LABS: Alanine Aminotransferase 20 U/L (6-35); Albumin Level 2.9 g/dL (3.5-5.1); Alkaline Phosphatase 46 U/L (38-126); Anion Gap 4 mmol/L (8-16); Aspartate Amino Transferase 20 U/L (14-36); Bilirubin,Total 0.8 mg/dL (0.2-1.3); Blood Urea Nitrogen 36 mg/dL (7-17); Calcium 8.4 mg/dL (8.4-10.2); Carbon Dioxide 28 mmol/L (22-30); Chloride 106 mmol/L (98-107); Estimated Glomerular Filt Rate > 60; Glucose 220 mg/dL (65-110); Potassium 4.2 mmol/L (3.4-5.0); Sodium 138 mmol/L (137-145)
[2023-06-08 07:53] LABS: Platelet Count Result 12 k/mm3 (150-375); White Blood Count 1.5 K/mm3 (4.5-10.0)
--- NOTE | 2023-06-08 08:31 | WPDINTPN ---
Progress Note: A&P Assessment and Plan (1) Pancytopenia: Code(s): D61.818 - Other pancytopenia Status: Acute Assessment and Plan: Although patient was admitted with diagnosis thrombocytopenia but patient essentially has pancytopenia with low white count anemia and low platelet count. 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 She was on prednisone p.o.. Patient denies having bone marrow biopsy done in the past She was on Lovenox for DVT and PE during the last admission in April and then was discharged on Eliquis. Patient was started on argatroban infusion on admission and Hematology has been consulted Hematology has started patient on steroid and ordered workup for HIT, and anemia vitamin B12 and folic acid which are normal Her stool Hemoccult is positive but hemoglobin has been essentially stable until yesterday when she received 1 unit of transfusion. Her stool up brown and not black. Hemoglobin 8.2 this morning. No signs of obvious bleeding. Argatroban has been discontinued and patient has had IVC filter placed continue to monitor hemoglobin and transfuse if needed. Continue q.12 hours PPI Patient was transfused 2 units of platelets. Will transfuse to keep platelet count more than 10,000 unless there are signs of bleeding Bone marrow biopsy done and report pending 06/07 IVC filter placed Continue monitor CBC and transfuse blood products as needed Smear did not show any schistocytes Patient is on empiric antibiotics were for her lung abscess Will defer further evaluation and management as per Hematology Oncology (2) Pulmonary embolism: Qualifiers: Pulmonary embolism type: unspecified Chronicity: acute Acute cor pulmonale presence: without acute cor pulmonale Qualified Code(s): I26.99 - Other pulmonary embolism without acute cor pulmonale Code(s): I26.99 - Other pulmonary embolism without acute cor pulmonale Status: Acute Assessment and Plan: Patient was diagnosed with PE and right lower extremity DVT in April and was started on Eliquis. Patient has now been transition to argatroban infusion due to her thrombocytopenia. In light of pancytopenia she has a high risk of bleeding. Hematology recommends discontinuation of anticoagulation and placement IVC filter. IVC filter placed 06/07 Argatroban infusion discontinued 06/07 lower extremity Dopplers show resolution of DVT (3) Deep venous thrombosis: Code(s): I82.409 - Acute embolism and thrombosis of unspecified deep veins of unspecified lower extremity Status: Acute Assessment and Plan: See above (4) Diabetes mellitus with hyperglycemia: Qualifiers: Diabetes mellitus type: type 2 Diabetes mellitus long term care social worker insulin use: without long term care social worker use Qualified Code(s): E11.65 - Type 2 diabetes mellitus with hyperglycemia Code(s): E11.65 - Type 2 diabetes mellitus with hyperglycemia Status: Acute Assessment and Plan: Continue glimepiride Continue sliding scale insulin Resume Lantus (5) Hyponatremia: Code(s): E87.1 - Hypo-osmolality and hyponatremia Status: Acute Assessment and Plan: Chronic and stable Monitor (6) Lung abscess: Code(s): J85.2 - Abscess of lung without pneumonia Status: Acute Assessment and Plan: Patient was found to be having lung mass in April and biopsy was done which was negative for any malignancy. Patient was diagnosed with lung abscess and was started on Levaquin and clindamycin. Patient finished 2 weeks of Levaquin and is currently on p.o. clindamycin for total of 6 week course She is currently on room air Clindamycin has been associated with thrombocytopenia and pancytopenia 06/05 Patient was switched to levaquin and Flagyl p.o. 06/[address] chest showed Cavitary nodule in left lung upper lobe with interval improvement, consistent with pneumo
[2023-06-08 09:00] LABS: Glucose Point of Care 167 mg/dl (65-105)
[2023-06-08] MEDS: ALBUMIN HUMAN 25% 25 GM/100 ML 100 ML IVPB (09:10)
[2023-06-08] MEDS: CENTRAL LINE FLUSH 10 ML IV PUSH ×3 (09:10→20:39)
[2023-06-08] MEDS: methylPREDNISolone SOD SUCC 125 MG VIAL IV PUSH ×2 (09:11→20:38)
[2023-06-08] MEDS: INSULIN GLARGINE (*BKC) 100 UNITS/ML 20 UNITS SUB-Q (09:11)
[2023-06-08] MEDS: FUROSEMIDE INJ 40 MG/4 ML VIAL 20 MG IV PUSH (09:11)
[2023-06-08] MEDS: ACYCLOVIR 400 MG TABLET PO ×3 (09:11→19:08)
[2023-06-08] MEDS: PANTOPRAZOLE SODIUM IV 40 MG VIAL IV PUSH ×2 (09:11→20:38)
[2023-06-08] MEDS: PRAVASTATIN SODIUM 20 MG TABLET 40 MG PO (09:11)
[2023-06-08] MEDS: oxyBUTYnin CHLORIDE XL 5 MG TAB.ER.24 10 MG PO (09:11)
--- NOTE | 2023-06-08 11:36 | PCFNICU ---
ICU Rounding Note: Pt current nutrition is 2 gm Na/Heart Healthy/DBCC. Last recorded weight is 60 kg. Bowel Motility:+Bm reported 06/07 Labs Reviewed:Glu 221, BUN 35, Hct 24.1,Hgb 8.3 Meds Noted:Protonix,Solu Medrol, Lantus Skin: Stege II Saccum, Deep Tissue-left buttock Additional Notes: Patient had IVC filter placed. Diet order has advanced, oral intake is 50-100% of most meals. Protein Modular of Yazan BID for wound healing and Glucerna shakes BID for additional 220 kcals and 9 gms protein. Agree with diet orders. Following daily in ICU rounds. Monitor intakes, labs, wound healing, supplement tolerance, weights, plan of care Follow up in 7 days.
[2023-06-08 13:52] LABS: Glucose Point of Care 263 mg/dl (65-105)
[2023-06-08] MEDS: INSULIN ASPART (*BKC) 100 UNITS/ML SUB-Q ×3 (14:16→20:40)
[2023-06-08] MEDS: metroNIDAZOLE 250 MG TABLET 500 MG PO ×3 (14:44→21:27)
[2023-06-08 17:26] LABS: Glucose Point of Care 450 mg/dl (65-105)
--- NOTE | 2023-06-08 17:52 | PM.IMPN ---
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 Hgb was stable but dropped to 6.4 yesterday requiring transfusion. B12/folate normal. Iron studies normal except low TIBC at 249. Smear did not show any schistocytes SPEP showing a small M-spike. HIT Ab negative. IgG <270, IgM <25, IgA 95 (nml) Leukopenia with WBC 7508-1048. No recent differential BM Bx 06/06 pathology pending Patient was transfused 2 units of platelets 06/02-. Plt count climbed to 31K but now in the 12-15K range. Will transfuse to keep platelet count more than 10,000 unless there are signs of bleeding Continue monitor CBC and transfuse blood products as needed Appreciate hematology/oncology input (2) Pulmonary embolism: Qualifiers: Pulmonary embolism type: unspecified Chronicity: acute Acute cor pulmonale presence: without acute cor pulmonale Qualified Code(s): I26.99 - Other pulmonary embolism without acute cor pulmonale Code(s): I26.99 - Other pulmonary embolism without acute cor pulmonale Status: Acute Assessment and Plan: Patient was diagnosed with PE and right lower extremity DVT in April and was started on Eliquis. Patient was transition to argatroban infusion due to her thrombocytopenia Filter placed 06/07. Argatroban stopped. Repeat venous doppler negative for DVT on 06/07. (3) Deep venous thrombosis: Code(s): I82.409 - Acute embolism and thrombosis of unspecified deep veins of unspecified lower extremity Status: Acute Assessment and Plan: Resolved (4) Diabetes mellitus with hyperglycemia: Qualifiers: Diabetes mellitus type: type 2 Diabetes mellitus intermission coordinator insulin use: without intermission coordinator use Qualified Code(s): E11.65 - Type 2 diabetes mellitus with hyperglycemia Code(s): E11.65 - Type 2 diabetes mellitus with hyperglycemia Status: Acute Assessment and Plan: A1c 10 in April. The patient's blood glucose was reviewed on 06/08 Glucose poorly controlled. Continue AccuCheks covering with sliding scale. Hypoglycemia protocol available as needed. Lantus incresed. Continue it monitor. (5) Hyponatremia: Code(s): E87.1 - Hypo-osmolality and hyponatremia Status: Acute Assessment and Plan: Sodium dropped to 126 early in her admission but normal now. Stable. Continue to monitor (6) Lung abscess: Code(s): J85.2 - Abscess of lung without pneumonia Status: Acute Assessment and Plan: Patient was found to have a lung mass in April and biopsy was done which was negative for any malignancy. Patient was diagnosed with lung abscess and was started on Levaquin and clindamycin. Patient finished 2 weeks of Levaquin with plans to continue clindamycin for total of [address] chest w/o contrast (06/05) showing atelectasis, small left pleural effusion and persistent RADHA cavitary lesion. Cavitary lesion smaller now. She remains on room air. She is on Flagyl and levaquin now. (7) Closed compression fracture of L1 vertebra: Code(s): S32.010A - Wedge compression fracture of first lumbar vertebra, initial encounter for closed fracture Status: Acute Assessment and Plan: Chest CT showing 'recent-appearing L2 burst fracture' by CT chest 05/14/23. Lumbar spine 05/17 showing it is actually an acute burst fx of L1. TLSO brace when up Pain control PT OT (8) Hyperlipidemia: Code(s): E78.5 - Hyperlipidemia, unspecified Status: Acute Assessment and Plan: LFTs okay. Continue statin (9) Lower extremity edema: Code(s): R60.0 - Localized edema Status: Acute Assessment and Plan: Patient with anasarca with ascities, flank edema. Ascites only small to
[2023-06-08 20:24] LABS: Glucose Point of Care 372 mg/dl (65-105)
[2023-06-08] MEDS: TOLNAFTATE 1% POWDER 45 GM BTL 1 APPLIC TOPICAL (20:38)
[2023-06-08] MEDS: PROPRANOLOL HCL 20 MG TABLET PO (21:27)
[2023-06-08 23:38] LABS: Glucose Point of Care 444 mg/dl (65-105)
[2023-06-09] VITALS (24 sets, daily range): BP systolic 106–142; BP diastolic 55–96; PULSE 64–106; RESP 14–24; TEMP 36.3–36.8; O2SAT 99–100
[2023-06-09] MEDS: metroNIDAZOLE 250 MG TABLET 500 MG PO ×3 (06:16→21:37)
[2023-06-09] MEDS: CENTRAL LINE FLUSH 10 ML IV PUSH ×3 (06:16→21:41)
[2023-06-09 06:34] LABS: Hematocrit 25.6 % (37.0-47.0); Hemoglobin 8.5 g/dL (12.0-15.0); Immature Granulocyte Absolute 0.09 K/mm3 (0.00-0.031); Immature Granulocyte Percent A 5.4 % (0-0.5); Immature Platelet Fraction Pct 4.7 % (0.9-11.2); Lymphocytes Absolute Auto 0.23 K/mm3 (0.9-3.2); Lymphocytes Percent Auto 13.9 % (18.3-44.2); Mean Corpuscular HGB Conc 33.2 g/dl (32-36); Mean Corpuscular Hemoglobin 32.3 pg (26-34); Mean Corpuscular Volume 97.3 fl (80-100); Mean Platelet Volume 11.7 fl (7.4-10.4); Monocytes Absolute Auto 0.1 K/mm3 (0.1-0.6); Monocytes Percent Auto 5.4 % (2.6-8.5); Neutrophils Absolute Auto 1.3 K/mm3 (1.3-6.7); Neutrophils Percent Auto 75.3 % (45.5-73.1); Nucleated Red Blood Cells Perc 1.8 % (0.0-0.2); Red Blood Count 2.63 M/mm3 (4.2-5.4); Red Cell Distribution Width 16.2 % (11.5-14.5)
[2023-06-09 06:42] LABS: Alanine Aminotransferase 21 U/L (6-35); Albumin Level 3.3 g/dL (3.5-5.1); Alkaline Phosphatase 43 U/L (38-126); Anion Gap 5 mmol/L (8-16); Aspartate Amino Transferase 19 U/L (14-36); Bilirubin,Total 0.8 mg/dL (0.2-1.3); Blood Urea Nitrogen 35 mg/dL (7-17); Calcium 8.6 mg/dL (8.4-10.2); Carbon Dioxide 29 mmol/L (22-30); Chloride 104 mmol/L (98-107); Estimated Glomerular Filt Rate > 60; Glucose 154 mg/dL (65-110); Lactate Dehydrogenase 164 U/L (120-246); Magnesium 1.9 mg/dL (1.6-2.3); Phosphorus 2.6 mg/dL (2.5-4.5); Potassium 3.7 mmol/L (3.4-5.0); Sodium 138 mmol/L (137-145)
[2023-06-09 06:57] LABS: Platelet Count Result 10 k/mm3 (150-375); White Blood Count 1.7 K/mm3 (4.5-10.0)
[2023-06-09 06:58] LABS: Ovalocytes 1+ (NORMAL); Platelet Estimate Adequate (Adequate); Schistocytes None Seen (NORMAL)
[2023-06-09] MEDS: PANTOPRAZOLE SODIUM IV 40 MG VIAL IV PUSH ×2 (07:55→20:31)
[2023-06-09] MEDS: PRAVASTATIN SODIUM 20 MG TABLET 40 MG PO (07:59)
[2023-06-09] MEDS: ACYCLOVIR 400 MG TABLET PO ×3 (08:00→16:43)
[2023-06-09] MEDS: FUROSEMIDE INJ 40 MG/4 ML VIAL 20 MG IV PUSH (08:00)
[2023-06-09] MEDS: INSULIN GLARGINE (*BKC) 100 UNITS/ML 20 UNITS SUB-Q (08:00)
[2023-06-09] MEDS: levoFLOXacin 750 MG TABLET PO (08:00)
[2023-06-09] MEDS: oxyBUTYnin CHLORIDE XL 5 MG TAB.ER.24 10 MG PO (08:00)
[2023-06-09] MEDS: methylPREDNISolone SOD SUCC 125 MG VIAL IV PUSH ×2 (08:01→20:31)
[2023-06-09] MEDS: ALBUMIN HUMAN 25% 25 GM/100 ML 100 ML IVPB (08:01)
[2023-06-09] MEDS: PROPRANOLOL HCL 20 MG TABLET PO ×2 (08:02→21:37)
[2023-06-09] MEDS: SODIUM CHLORIDE 0.9% IV 250 ML 30 ML IV CONT (08:02)
[2023-06-09] MEDS: TOLNAFTATE 1% POWDER 45 GM BTL 1 APPLIC TOPICAL ×2 (08:03→20:31)
[2023-06-09 08:15] LABS: Glucose Point of Care 145 mg/dl (65-105)
[2023-06-09 11:58] LABS: Glucose Point of Care 198 mg/dl (65-105)
--- NOTE | 2023-06-09 12:46 | PM.IMPN ---
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 Hgb was stable but dropped to 6.4 on 06/07 requiring transfusion. B12/folate normal. Iron studies normal except low TIBC at 249. Smear did not show any schistocytes SPEP showing a small M-spike. HIT Ab negative. IgG <270, IgM <25, IgA 95 (nml) Leukopenia with WBC 7807-8430. ANC 1000 with 75% Neutrophils but no immature cells. Nucleated RBC at 1.8% BM Bx 06/06 pathology pending Patient was transfused 2 units of platelets 06/02-. Plt count climbed to 31K but now in the 10K. Will transfuse today Keep platelet count more than 10,000 unless there are signs of bleeding Continue monitor CBC and transfuse blood products as needed Appreciate hematology/oncology input (2) Pulmonary embolism: Qualifiers: Pulmonary embolism type: unspecified Chronicity: acute Acute cor pulmonale presence: without acute cor pulmonale Qualified Code(s): I26.99 - Other pulmonary embolism without acute cor pulmonale Code(s): I26.99 - Other pulmonary embolism without acute cor pulmonale Status: Acute Assessment and Plan: Patient was diagnosed with PE and right lower extremity DVT in April and was started on Eliquis. Patient was transition to argatroban infusion due to her thrombocytopenia Filter placed 06/07. Argatroban stopped. Repeat venous doppler negative for DVT on 06/07. (3) Deep venous thrombosis: Code(s): I82.409 - Acute embolism and thrombosis of unspecified deep veins of unspecified lower extremity Status: Acute Assessment and Plan: Resolved (4) Diabetes mellitus with hyperglycemia: Qualifiers: Diabetes mellitus type: type 2 Diabetes mellitus predatory animal exterminator insulin use: without halfway use Qualified Code(s): E11.65 - Type 2 diabetes mellitus with hyperglycemia Code(s): E11.65 - Type 2 diabetes mellitus with hyperglycemia Status: Acute Assessment and Plan: A1c 10 in April. The patient's blood glucose was reviewed on 06/09 Glucose poorly better controlled Continue AccuCheks covering with sliding scale. Hypoglycemia protocol available as needed. Continue it monitor. (5) Hyponatremia: Code(s): E87.1 - Hypo-osmolality and hyponatremia Status: Acute Assessment and Plan: Sodium dropped to 126 early in her admission but normal now. Stable. Continue to monitor (6) Lung abscess: Code(s): J85.2 - Abscess of lung without pneumonia Status: Acute Assessment and Plan: Patient was found to have a lung mass in April and biopsy was done which was negative for any malignancy. Patient was diagnosed with lung abscess and was started on Levaquin and clindamycin. Patient finished 2 weeks of Levaquin with plans to continue clindamycin for total of [address] chest w/o contrast (06/05) showing atelectasis, small left pleural effusion and persistent RADHA cavitary lesion. Cavitary lesion smaller now. She remains on room air. She is on Flagyl and levaquin now. (7) Closed compression fracture of L1 vertebra: Code(s): S32.010A - Wedge compression fracture of first lumbar vertebra, initial encounter for closed fracture Status: Acute Assessment and Plan: Chest CT showing 'recent-appearing L2 burst fracture' by CT chest 05/14/23. Lumbar spine 05/17 showing it is actually an acute burst fx of L1. TLSO brace when up Pain control PT OT (8) Hyperlipidemia: Code(s): E78.5 - Hyperlipidemia, unspecified Status: Acute Assessment and Plan: LFTs okay. Continue statin (9) Lower extremity edema: Code(s): R60.0 - Localized edema Status: Acute Assessment and Plan: Patient with anasarca with ascities, fl
[2023-06-09 17:20] LABS: Glucose Point of Care 173 mg/dl (65-105)
[2023-06-09] MEDS: INSULIN ASPART (*BKC) 100 UNITS/ML SUB-Q (21:38)
[2023-06-09 23:00] LABS: Glucose Point of Care 209 mg/dl (65-105)
[2023-06-10] VITALS (17 sets, daily range): BP systolic 108–149; BP diastolic 57–89; PULSE 71–104; RESP 15–24; TEMP 36.1–36.9; O2SAT 96–100
[2023-06-10] MEDS: CENTRAL LINE FLUSH 10 ML IV PUSH ×3 (05:28→20:16)
[2023-06-10] MEDS: metroNIDAZOLE 250 MG TABLET 500 MG PO ×3 (05:28→20:12)
[2023-06-10 05:33] LABS: Hematocrit 23.5 % (37.0-47.0); Hemoglobin 7.9 g/dL (12.0-15.0); Immature Granulocyte Absolute 0.02 K/mm3 (0.00-0.031); Immature Granulocyte Percent A 1.8 % (0-0.5); Immature Platelet Fraction Pct 1.9 % (0.9-11.2); Lymphocytes Absolute Auto 0.19 K/mm3 (0.9-3.2); Mean Corpuscular HGB Conc 33.6 g/dl (32-36); Mean Corpuscular Hemoglobin 32.9 pg (26-34); Mean Corpuscular Volume 97.9 fl (80-100); Monocytes Absolute Auto 0.1 K/mm3 (0.1-0.6); Monocytes Percent Auto 5.4 % (2.6-8.5); Neutrophils Absolute Auto 0.9 K/mm3 (1.3-6.7); Neutrophils Percent Auto 75.8 % (45.5-73.1); Nucleated Red Blood Cells Perc 1.8 % (0.0-0.2); Platelet Count Result 35 k/mm3 (150-375); Red Cell Distribution Width 15.8 % (11.5-14.5)
[2023-06-10 05:39] LABS: Alanine Aminotransferase 20 U/L (6-35); Albumin Level 3.5 g/dL (3.5-5.1); Alkaline Phosphatase 45 U/L (38-126); Anion Gap 5 mmol/L (8-16); Aspartate Amino Transferase 23 U/L (14-36); Bilirubin,Total 0.9 mg/dL (0.2-1.3); Blood Urea Nitrogen 35 mg/dL (7-17); Calcium 8.8 mg/dL (8.4-10.2); Carbon Dioxide 31 mmol/L (22-30); Chloride 102 mmol/L (98-107); Estimated Glomerular Filt Rate > 60; Glucose 109 mg/dL (65-110); Potassium 3.2 mmol/L (3.4-5.0); Sodium 138 mmol/L (137-145)
[2023-06-10 05:48] LABS: White Blood Count 1.1 K/mm3 (4.5-10.0)
[2023-06-10 08:17] LABS: Glucose Point of Care 90 mg/dl (65-105)
[2023-06-10] MEDS: INSULIN GLARGINE (*BKC) 100 UNITS/ML 20 UNITS SUB-Q (08:18)
[2023-06-10] MEDS: PANTOPRAZOLE SODIUM IV 40 MG VIAL IV PUSH ×2 (08:21→20:12)
[2023-06-10] MEDS: PRAVASTATIN SODIUM 20 MG TABLET 40 MG PO (08:22)
[2023-06-10] MEDS: ACYCLOVIR 400 MG TABLET PO ×3 (08:22→16:55)
[2023-06-10] MEDS: methylPREDNISolone SOD SUCC 125 MG VIAL IV PUSH ×2 (08:22→20:12)
[2023-06-10] MEDS: oxyBUTYnin CHLORIDE XL 5 MG TAB.ER.24 10 MG PO (08:22)
[2023-06-10] MEDS: FUROSEMIDE INJ 40 MG/4 ML VIAL 20 MG IV PUSH (08:22)
[2023-06-10] MEDS: PROPRANOLOL HCL 20 MG TABLET PO ×2 (08:22→20:11)
[2023-06-10] MEDS: TOLNAFTATE 1% POWDER 45 GM BTL 1 APPLIC TOPICAL ×2 (08:23→20:14)
[2023-06-10] MEDS: ALBUMIN HUMAN 25% 25 GM/100 ML 100 ML IVPB (08:23)
[2023-06-10] MEDS: POTASSIUM CHLORIDE 20 MEQ PACKET (FOR LIQUID) 40 MEQ PO (08:25)
--- NOTE | 2023-06-10 10:23 | PM.IMPN ---
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 B12/folate normal. Iron studies normal except low TIBC at 249. Smear did not show any schistocytes. SPEP showing a small M-spike. HIT Ab negative. IgG <270, IgM <25, IgA 95 (nml). Leukopenia with WBC 8229-8770. ANC 1000 with 75% Neutrophils but no immature cells. Elevated nucleated RBC. Continue acyclovir. Hgb was stable but dropped to 6.4 on 06/07 requiring transfusion. Patient was transfused 2 units of platelets 06/02-. Plt count climbed to 31K but dropped to 10K and transfused again 06/09. Keep platelet count more than 10,000 unless there are signs of bleeding BM Bx 06/06 pathology pending Continue monitor CBC and transfuse blood products as needed Continue Steroids. Appreciate hematology/oncology input (2) Pulmonary embolism: Qualifiers: Pulmonary embolism type: unspecified Chronicity: acute Acute cor pulmonale presence: without acute cor pulmonale Qualified Code(s): I26.99 - Other pulmonary embolism without acute cor pulmonale Code(s): I26.99 - Other pulmonary embolism without acute cor pulmonale Status: Acute Assessment and Plan: Patient was diagnosed with PE and right lower extremity DVT in April and was started on Eliquis. Patient was transition to argatroban infusion due to her thrombocytopenia Filter placed 06/07. Argatroban stopped. Repeat venous doppler negative for DVT on 06/07. (3) Cirrhosis of liver with ascites: Code(s): K74.60 - Unspecified cirrhosis of liver; R18.8 - Other ascites Status: Acute Assessment and Plan: Patient with anasarca with ascities, flank edema. Ascites only small to moderate by CT lumbar spine 05/[address] chest 06/05 showing large volume of ascites and splenomegaly. Abd US 06/06 showing cirrhosis, splenomegaly and distended GB with stones. Started on Albumin and lasix. Negative fluid balance. Consider paracentesis. Check CT Abd/pelvis. Check hepatitis panel. Continue compression stockings. Continue Albumin and Lasix (4) Deep venous thrombosis: Code(s): I82.409 - Acute embolism and thrombosis of unspecified deep veins of unspecified lower extremity Status: Acute Assessment and Plan: Resolved (5) Diabetes mellitus with hyperglycemia: Qualifiers: Diabetes mellitus type: type 2 Diabetes mellitus retirement insulin use: without retirement use Qualified Code(s): E11.65 - Type 2 diabetes mellitus with hyperglycemia Code(s): E11.65 - Type 2 diabetes mellitus with hyperglycemia Status: Acute Assessment and Plan: A1c 10 in April. The patient's blood glucose was reviewed on 06/10 Glucose better controlled Continue AccuCheks covering with sliding scale. Hypoglycemia protocol available as needed. Continue it monitor. (6) Hyponatremia: Code(s): E87.1 - Hypo-osmolality and hyponatremia Status: Acute Assessment and Plan: Sodium dropped to 126 early in her admission but normal now. Stable. Continue to monitor (7) Lung abscess: Code(s): J85.2 - Abscess of lung without pneumonia Status: Acute Assessment and Plan: Patient was found to have a lung mass in April and biopsy was done which was negative for any malignancy. Patient was diagnosed with lung abscess and was started on Levaquin and clindamycin. Patient finished 2 weeks of Levaquin with plans to continue clindamycin for total of [address] chest w/o contrast (06/05) showing atelectasis, small left pleural effusion and persistent RADHA cavitary lesion. Cavitary lesion smaller now. She remains on room air. She is on Flagyl and levaquin now. (8) Closed compression fracture of L1 vertebra:
--- NOTE | 2023-06-10 10:52 | PC.NURSE ---
Attempted to notify Jagruti Phillips of her move to room 202 no answer and not accepting voice mail at this time.
--- NOTE | 2023-06-10 10:53 | PC.NURSE ---
This patient, Rachele Hoffman, was transferred to [facility] on 06/10/23 at 1053. Personal belongings sent with patient. Report given to Vee. Appropriate documentation sent with patient.
[2023-06-10 11:50] LABS: Glucose Point of Care 157 mg/dl (65-105)
[2023-06-10 14:08] LABS: HIV 1/2 Ab P24 Ag Result Negative (Negative)
[2023-06-10 14:22] LABS: Hepatitis B Surface Antigen Negative (Negative)
[2023-06-10 14:28] LABS: HAV RESULT Negative (Negative); Hepatitis B Core IgM Result Negative (Negative)
[2023-06-10 14:39] LABS: Hepatitis C Virus Antibody Negative (Negative)
[2023-06-10 16:20] LABS: Glucose Point of Care 209 mg/dl (65-105)
[2023-06-10] MEDS: INSULIN ASPART (*BKC) 100 UNITS/ML SUB-Q ×2 (16:55→20:26)
[2023-06-10 20:18] LABS: Glucose Point of Care 235 mg/dl (65-105)
[2023-06-11] VITALS (16 sets, daily range): BP systolic 107–162; BP diastolic 66–88; PULSE 46–120; RESP 16–22; TEMP 36.2–36.7; O2SAT 97–100
[2023-06-11 04:57] LABS: Hematocrit 24.1 % (37.0-47.0); Hemoglobin 8.1 g/dL (12.0-15.0); Immature Granulocyte Absolute 0.02 K/mm3 (0.00-0.031); Immature Granulocyte Percent A 1.8 % (0-0.5); Immature Platelet Fraction Pct 1.8 % (0.9-11.2); Lymphocytes Absolute Auto 0.17 K/mm3 (0.9-3.2); Lymphocytes Percent Auto 15.2 % (18.3-44.2); Mean Corpuscular HGB Conc 33.6 g/dl (32-36); Mean Corpuscular Hemoglobin 33.1 pg (26-34); Mean Corpuscular Volume 98.4 fl (80-100); Mean Platelet Volume 10.3 fl (7.4-10.4); Monocytes Absolute Auto 0.1 K/mm3 (0.1-0.6); Monocytes Percent Auto 4.5 % (2.6-8.5); Neutrophils Absolute Auto 0.9 K/mm3 (1.3-6.7); Neutrophils Percent Auto 78.5 % (45.5-73.1); Platelet Count Result 26 k/mm3 (150-375); Red Blood Count 2.45 M/mm3 (4.2-5.4); Red Cell Distribution Width 16.1 % (11.5-14.5)
[2023-06-11 05:03] LABS: Alanine Aminotransferase 21 U/L (6-35); Albumin Level 3.4 g/dL (3.5-5.1); Alkaline Phosphatase 49 U/L (38-126); Anion Gap 8 mmol/L (8-16); Aspartate Amino Transferase 23 U/L (14-36); Bilirubin,Total 0.9 mg/dL (0.2-1.3); Blood Urea Nitrogen 32 mg/dL (7-17); Calcium 8.7 mg/dL (8.4-10.2); Carbon Dioxide 29 mmol/L (22-30); Chloride 102 mmol/L (98-107); Estimated Glomerular Filt Rate > 60; Glucose 214 mg/dL (65-110); Magnesium 1.7 mg/dL (1.6-2.3); Phosphorus 2.8 mg/dL (2.5-4.5); Potassium 3.4 mmol/L (3.4-5.0); Sodium 139 mmol/L (137-145)
[2023-06-11 05:09] LABS: White Blood Count 1.1 K/mm3 (4.5-10.0)
[2023-06-11] MEDS: CENTRAL LINE FLUSH 10 ML IV PUSH ×3 (05:12→20:25)
[2023-06-11] MEDS: metroNIDAZOLE 250 MG TABLET 500 MG PO ×3 (05:12→20:25)
[2023-06-11 07:53] LABS: Glucose Point of Care 199 mg/dl (65-105)
[2023-06-11 08:18] LABS: Anisocytosis 1+ (NORMAL); Platelet Estimate Decreased (Adequate)
[2023-06-11 08:19] LABS: Schistocytes None Seen (NORMAL)
[2023-06-11] MEDS: ALBUMIN HUMAN 25% 25 GM/100 ML 100 ML IVPB (09:17)
[2023-06-11] MEDS: levoFLOXacin 750 MG TABLET PO (09:18)
[2023-06-11] MEDS: PROPRANOLOL HCL 20 MG TABLET PO ×2 (09:18→20:24)
[2023-06-11] MEDS: PRAVASTATIN SODIUM 20 MG TABLET 40 MG PO (09:18)
[2023-06-11] MEDS: methylPREDNISolone SOD SUCC 125 MG VIAL IV PUSH (09:18)
[2023-06-11] MEDS: ACYCLOVIR 400 MG TABLET PO ×3 (09:18→17:17)
[2023-06-11] MEDS: POTASSIUM CHLORIDE 20 MEQ PACKET (FOR LIQUID) 40 MEQ PO (09:18)
[2023-06-11] MEDS: MAGNESIUM SULF 2 GM/WATER 50ML 2 GM/50 ML BAG IVPB (09:18)
[2023-06-11] MEDS: FUROSEMIDE INJ 40 MG/4 ML VIAL 20 MG IV PUSH (09:19)
[2023-06-11] MEDS: TOLNAFTATE 1% POWDER 45 GM BTL 1 APPLIC TOPICAL ×2 (09:19→20:25)
[2023-06-11] MEDS: PANTOPRAZOLE SODIUM IV 40 MG VIAL IV PUSH ×2 (09:19→20:24)
[2023-06-11] MEDS: oxyBUTYnin CHLORIDE XL 5 MG TAB.ER.24 10 MG PO (09:19)
[2023-06-11] MEDS: INSULIN GLARGINE (*BKC) 100 UNITS/ML 20 UNITS SUB-Q (09:34)
[2023-06-11 12:27] LABS: Glucose Point of Care 180 mg/dl (65-105)
--- NOTE | 2023-06-11 12:34 | PM.IMPN ---
Progress Note: A&P Assessment and Plan (1) Confusion: Code(s): R41.0 - Disorientation, unspecified Status: Acute Assessment and Plan: Patient mildly confused this morning and felt probably related to nightmare. Called later int he morning and informed that her condition has worsened. Check CT brain. 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 B12/folate normal. Iron studies normal except low TIBC at 249. Smear did not show any schistocytes. SPEP showing a small M-spike. HIT Ab negative. UIF pending. SIF pending. IgG <270, IgM <25, IgA 95 (nml). Leukopenia with WBC 4240-7963. ANC 850 with 78% Neutrophils but no immature cells. Elevated nucleated RBC. Continue acyclovir. Hgb 9-10 range on admission but dropped to 6.4 on 06/07 requiring transfusion. Stool guaiac positive. She is on PPI. Since transfusion, hgb 8 range. Patient has chronic thrombocytopenia and was on prednisone daily per Dr. Stockton. Patient was transfused 2 units of platelets 06/02- for a plt count of 13K. Plt count climbed to 31K but dropped to 10K and transfused again 06/09. Plt climbed to 35K -> 26K today Keep platelet count more than 10,000 unless there are signs of bleeding BM Bx 06/06 pathology still pending Continue monitor CBC and transfuse blood products as needed Continue Steroids. Appreciate hematology/oncology input (3) Pulmonary embolism: Qualifiers: Acute cor pulmonale presence: without acute cor pulmonale Chronicity: acute Pulmonary embolism type: unspecified Qualified Code(s): I26.99 - Other pulmonary embolism without acute cor pulmonale Code(s): I26.99 - Other pulmonary embolism without acute cor pulmonale Status: Acute Assessment and Plan: Patient was diagnosed with PE and right lower extremity DVT in April and was started on Eliquis. Patient was transition to argatroban infusion due to her thrombocytopenia Filter placed 06/07. Argatroban stopped. Repeat venous doppler negative for DVT on 06/07. (4) Cirrhosis of liver with ascites: Code(s): K74.60 - Unspecified cirrhosis of liver; R18.8 - Other ascites Status: Acute Assessment and Plan: Patient with anasarca with ascities, flank edema. Ascites only small to moderate by CT lumbar spine 05/[address] chest 06/05 showing large volume of ascites and splenomegaly. Abd US 06/06 showing cirrhosis, splenomegaly and distended GB with stones. CT A/P 06/10 cirrhosis, portal HTN, splenomegaly, moderate ascites, anasarca and cholelithiasis. Hepatitis and HIV negative. Started on Albumin and lasix. Negative fluid balance. Consider paracentesis. Continue compression stockings. Continue Albumin and Lasix (5) Diabetes mellitus with hyperglycemia: Qualifiers: Diabetes mellitus custodial insulin use: without custodial use Diabetes mellitus type: type 2 Qualified Code(s): E11.65 - Type 2 diabetes mellitus with hyperglycemia Code(s): E11.65 - Type 2 diabetes mellitus with hyperglycemia Status: Acute Assessment and Plan: A1c 10 in April. The patient's blood glucose was reviewed on 06/11 Glucose elevated at time related to steroids. Glucose somewhat better controlled Continue AccuCheks covering with sliding scale. Hypoglycemia protocol available as needed. Continue it monitor. (6) Lung abscess: Code(s): J85.2 - Abscess of lung without pneumonia Status: Acute Assessment and Plan: Patient was found to have a lung mass in April and biopsy was done which was negative for any malignancy. Patient was diagnosed with lung abscess and was started on Levaquin and clindamycin. Patient finished 2 weeks of Levaquin with plans to continue clindamycin for total of 6 week cour
--- NOTE | 2023-06-11 12:58 | PCPTNOTE ---
Attempted to see patient for PT, however unable to see patient due to patient out of the room for testing.
[2023-06-11 16:29] LABS: Glucose Point of Care 285 mg/dl (65-105)
[2023-06-11] MEDS: INSULIN ASPART (*BKC) 100 UNITS/ML SUB-Q ×2 (17:17→20:15)
[2023-06-11 19:52] LABS: Appearance Urine Cloudy (Clear); Bacteria Urine None Seen /hpf; Bilirubin Urine Negative (Negative); Blood Urine 3+ (Negative); Budding Yeast Urine Present /hpf; Color Urine Yellow (Yellow); Glucose Urine UA 3+ mg/dL (Negative); Ketones Urine Trace mg/dL (Negative); Leukocyte Esterase Ur 2+ LEU/UL (Negative); Nitrate Urine Negative (Negative); Non Pathogenic Casts 0-2; Protein Urine 1+ mg/dL (Negative); RBC Urine >100 /hpf (0-2); Specific Grav Ur 1.022 (1.001-1.035); Squamous Epithelial Cell Urine Occasional /hpf (Few); Urobilinogen Urine 0.2 mg/dL (<2.0); WBC Urine >100 /hpf
[2023-06-11 19:54] LABS: Add Urine Microscopic? YES
[2023-06-11 20:08] LABS: Glucose Point of Care 347 mg/dl (65-105)
[2023-06-11] MEDS: methylPREDNISolone SOD SUCC 125 MG VIAL 80 MG IV PUSH (20:24)
[2023-06-12] VITALS (18 sets, daily range): BP systolic 120–158; BP diastolic 67–85; PULSE 87–113; RESP 16–20; TEMP 36.3–36.7; O2SAT 95–100; BMI 10.0
[2023-06-12] MEDS: metroNIDAZOLE 250 MG TABLET 500 MG PO (05:59)
[2023-06-12] MEDS: CENTRAL LINE FLUSH 10 ML IV PUSH ×3 (05:59→21:35)
[2023-06-12 06:03] LABS: Hematocrit 24.1 % (37.0-47.0); Hemoglobin 7.9 g/dL (12.0-15.0); Immature Granulocyte Absolute 0.03 K/mm3 (0.00-0.031); Immature Granulocyte Percent A 2.8 % (0-0.5); Immature Platelet Fraction Pct 2.3 % (0.9-11.2); Lymphocytes Absolute Auto 0.13 K/mm3 (0.9-3.2); Lymphocytes Percent Auto 12.3 % (18.3-44.2); Mean Corpuscular HGB Conc 32.8 g/dl (32-36); Mean Corpuscular Hemoglobin 32.6 pg (26-34); Mean Corpuscular Volume 99.6 fl (80-100); Mean Platelet Volume 9.7 fl (7.4-10.4); Monocytes Absolute Auto 0.1 K/mm3 (0.1-0.6); Monocytes Percent Auto 7.5 % (2.6-8.5); Neutrophils Absolute Auto 0.8 K/mm3 (1.3-6.7); Neutrophils Percent Auto 77.4 % (45.5-73.1); Nucleated Red Blood Cells Perc 1.9 % (0.0-0.2); Red Blood Count 2.42 M/mm3 (4.2-5.4); Red Cell Distribution Width 16.3 % (11.5-14.5)
[2023-06-12 06:12] LABS: Alanine Aminotransferase 21 U/L (6-35); Albumin Level 3.5 g/dL (3.5-5.1); Alkaline Phosphatase 50 U/L (38-126); Anion Gap 6 mmol/L (8-16); Aspartate Amino Transferase 20 U/L (14-36); Bilirubin,Total 1.1 mg/dL (0.2-1.3); Blood Urea Nitrogen 35 mg/dL (7-17); Calcium 8.8 mg/dL (8.4-10.2); Carbon Dioxide 32 mmol/L (22-30); Chloride 102 mmol/L (98-107); Estimated Glomerular Filt Rate > 60; Glucose 278 mg/dL (65-110); Potassium 3.5 mmol/L (3.4-5.0); Sodium 140 mmol/L (137-145)
[2023-06-12 06:29] LABS: Platelet Count Result 19 k/mm3 (150-375); White Blood Count 1.1 K/mm3 (4.5-10.0)
[2023-06-12 06:30] LABS: Anisocytosis 2+ (NORMAL); Hypochromasia 2+ (NORMAL); Platelet Estimate Decreased (Adequate); Poikilocytosis 1+ (NORMAL); Schistocytes None Seen (NORMAL)
[2023-06-12] MEDS: INSULIN GLARGINE (*BKC) 100 UNITS/ML 20 UNITS SUB-Q (09:40)
[2023-06-12] MEDS: ALBUMIN HUMAN 25% 25 GM/100 ML 100 ML IVPB (09:40)
[2023-06-12] MEDS: FUROSEMIDE INJ 40 MG/4 ML VIAL 20 MG IV PUSH (09:41)
[2023-06-12] MEDS: INSULIN ASPART (*BKC) 100 UNITS/ML SUB-Q ×2 (09:41→11:52)
[2023-06-12] MEDS: methylPREDNISolone SOD SUCC 125 MG VIAL 80 MG IV PUSH (09:42)
[2023-06-12] MEDS: ACYCLOVIR 400 MG TABLET PO ×3 (09:42→18:03)
[2023-06-12] MEDS: PANTOPRAZOLE SODIUM IV 40 MG VIAL IV PUSH ×2 (09:42→21:32)
[2023-06-12] MEDS: PROPRANOLOL HCL 20 MG TABLET PO ×2 (09:43→21:31)
[2023-06-12] MEDS: PRAVASTATIN SODIUM 20 MG TABLET 40 MG PO (09:43)
[2023-06-12] MEDS: TOLNAFTATE 1% POWDER 45 GM BTL 1 APPLIC TOPICAL ×2 (09:44→21:32)
[2023-06-12] MEDS: oxyBUTYnin CHLORIDE XL 5 MG TAB.ER.24 10 MG PO (09:44)
--- NOTE | 2023-06-12 09:47 | PM.IMPN ---
Progress Note: A&P Assessment and Plan (1) Confusion: Code(s): R41.0 - Disorientation, unspecified Status: Acute Assessment and Plan: Patient mildly confused beginning the morning aon 06/11. CT brain showing no acute findings. Consider infectious etiology. CXR more likely edema. UA noted but already on abx. Could be related to steroids (was on Solu-Medrol 125mg IV Q12hr for 8 days). Dose cut back yesterday and will continue to dial this back. Could also be related to poor sleep (which steroids could contribute to this). Add melatonin. 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 SPEP showing a small M-spike. HIT Ab negative. UIF pending. SIF pending. Leukopenia with WBC 1460-9092. ANC 850 with 78% Neutrophils but no immature cells. Continue acyclovir. Hgb 9-10 range on admission but dropped to 6.4 on 06/07 requiring transfusion. B12/folate normal. Iron studies normal except low TIBC at 249. Smear did not show any schistocytes. Stool guaiac positive. She is on PPI. Elevated nucleated RBC. Since transfusion, hgb 8 range. Patient has chronic thrombocytopenia and was on prednisone daily per Dr. Stockton. Patient was transfused 2 units of platelets 06/02- for a plt count of 13K. Plt count climbed to 31K but dropped to 10K and transfused again 06/09. Plt climbed to 35K -> 19K today Keep platelet count more than 10,000 unless there are signs of bleeding BM Bx 06/06 pathology showing normocellular marrow with trilineage hematopoiesis and no evidence of lymphoma or myeloid neoplasm. No clonal B-cell or increased blast production Continue monitor CBC and transfuse blood products as needed Wean Steroids. Appreciate hematology/oncology input (3) Pulmonary embolism: Qualifiers: Acute cor pulmonale presence: without acute cor pulmonale Chronicity: acute Pulmonary embolism type: unspecified Qualified Code(s): I26.99 - Other pulmonary embolism without acute cor pulmonale Code(s): I26.99 - Other pulmonary embolism without acute cor pulmonale Status: Acute Assessment and Plan: Patient was diagnosed with PE and right lower extremity DVT in April and was started on Eliquis. Patient was transition to argatroban infusion due to her thrombocytopenia Filter placed 06/07. Argatroban stopped. Repeat venous doppler negative for DVT on 06/07. (4) Cirrhosis of liver with ascites: Code(s): K74.60 - Unspecified cirrhosis of liver; R18.8 - Other ascites Status: Acute Assessment and Plan: Patient with anasarca with ascities, flank edema. Ascites only small to moderate by CT lumbar spine 05/[address] chest 06/05 showing large volume of ascites and splenomegaly. Abd US 06/06 showing cirrhosis, splenomegaly and distended GB with stones. CT A/P 06/10 cirrhosis, portal HTN, splenomegaly, moderate ascites, anasarca and cholelithiasis. Hepatitis and HIV negative. Started on Albumin and lasix. Negative fluid balance. Consider paracentesis. Continue compression stockings. Continue Lasix. Stop Albumin. Consider adding Spironolactone. (5) Diabetes mellitus with hyperglycemia: Qualifiers: Diabetes mellitus exterminator insulin use: without exterminator use Diabetes mellitus type: type 2 Qualified Code(s): E11.65 - Type 2 diabetes mellitus with hyperglycemia Code(s): E11.65 - Type 2 diabetes mellitus with hyperglycemia Status: Acute Assessment and Plan: A1c 10 in April. The patient's blood glucose was reviewed on 06/12 Glucose still elevated despite dropping steroid dose. Continue to wean steroids Continue AccuCheks covering with sliding scale. Hypoglycemia protocol available as needed. Continue it monitor. (6) Lung abscess: Co
--- NOTE | 2023-06-12 10:42 | PCOTNOTE ---
The patient treatment was not able to be completed on 06/12 in the AM. Nursing reported patient is very restless and needs time to sleep. Try and check back after lunch time. Will plan to continue treatment per plan of care.
[2023-06-12 10:47] LABS: Glucose Point of Care 253 mg/dl (65-105)
[2023-06-12] MEDS: levoFLOXacin 500 MG TABLET PO (11:38)
[2023-06-12 11:59] LABS: Glucose Point of Care 258 mg/dl (65-105)
--- NOTE | 2023-06-12 13:45 | PCOTNOTE ---
Patient had just completed PT treatment. Patient having increased confusion. Per RN, not at this time.
[2023-06-12 17:38] LABS: Glucose Point of Care 157 mg/dl (65-105)
[2023-06-12 20:31] LABS: Glucose Point of Care 130 mg/dl (65-105)
[2023-06-12] MEDS: MELATONIN 3 MG TABLET PO (21:31)
[2023-06-12] MEDS: methylPREDNISolone SOD SUCC 40 MG VIAL IV PUSH (21:31)
[2023-06-13] VITALS (15 sets, daily range): BP systolic 108–131; BP diastolic 58–70; PULSE 79–113; RESP 12–20; TEMP 36.1–36.8; O2SAT 94–100
[2023-06-13 03:55] LABS: Hematocrit 24.2 % (37.0-47.0); Hemoglobin 8.1 g/dL (12.0-15.0); Immature Granulocyte Absolute 0.02 K/mm3 (0.00-0.031); Immature Granulocyte Percent A 1.3 % (0-0.5); Immature Platelet Fraction Pct 3.5 % (0.9-11.2); Lymphocytes Absolute Auto 0.24 K/mm3 (0.9-3.2); Mean Corpuscular HGB Conc 33.5 g/dl (32-36); Mean Corpuscular Hemoglobin 33.2 pg (26-34); Mean Corpuscular Volume 99.2 fl (80-100); Mean Platelet Volume 11.8 fl (7.4-10.4); Monocytes Absolute Auto 0.1 K/mm3 (0.1-0.6); Monocytes Percent Auto 5.6 % (2.6-8.5); Neutrophils Absolute Auto 1.3 K/mm3 (1.3-6.7); Neutrophils Percent Auto 78.1 % (45.5-73.1); Red Blood Count 2.44 M/mm3 (4.2-5.4); Red Cell Distribution Width 16.6 % (11.5-14.5)
[2023-06-13 04:22] LABS: Platelet Count Result 16 k/mm3 (150-375); White Blood Count 1.6 K/mm3 (4.5-10.0)
[2023-06-13 04:25] LABS: Anisocytosis 1+ (NORMAL); Basophilic Stippling 1+ (NORMAL); Platelet Estimate Decreased (Adequate); Poikilocytosis 1+ (NORMAL); Polychromasia 1+ (NORMAL); Schistocytes None Seen (NORMAL)
[2023-06-13 05:00] LABS: Alanine Aminotransferase 20 U/L (6-35); Albumin Level 3.6 g/dL (3.5-5.1); Alkaline Phosphatase 50 U/L (38-126); Anion Gap 4 mmol/L (8-16); Aspartate Amino Transferase 23 U/L (14-36); Bilirubin,Total 1.3 mg/dL (0.2-1.3); Blood Urea Nitrogen 41 mg/dL (7-17); Calcium 8.9 mg/dL (8.4-10.2); Carbon Dioxide 36 mmol/L (22-30); Chloride 100 mmol/L (98-107); Estimated Glomerular Filt Rate > 60; Glucose 102 mg/dL (65-110); Potassium 3.2 mmol/L (3.4-5.0); Sodium 140 mmol/L (137-145)
[2023-06-13] MEDS: CENTRAL LINE FLUSH 10 ML IV PUSH ×3 (06:46→21:13)
[2023-06-13 07:53] LABS: Glucose Point of Care 98 mg/dl (65-105)
--- NOTE | 2023-06-13 09:37 | PM.IMPN ---
Progress Note: A&P Assessment and Plan (1) Confusion: Code(s): R41.0 - Disorientation, unspecified Status: Acute Assessment and Plan: Patient mildly confused beginning the morning on 06/11. CT brain showing no acute findings. Consider infectious etiology. CXR more likely edema. UA noted but already on abx. Could be related to steroids (was on Solu-Medrol 125mg IV Q12hr for 8 days). Dose cut back and will continue to dial this back. Could also be related to poor sleep (which steroids could contribute to this). Add melatonin. 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 SPEP showing a small M-spike. HIT Ab negative. UIF pending. SIF pending. Leukopenia with WBC 1510-1387. ANC 850 with 78% Neutrophils but no immature cells. Continue acyclovir. Hgb 9-10 range on admission but dropped to 6.4 on 06/07 requiring transfusion. B12/folate normal. Iron studies normal except low TIBC at 249. Smear did not show any schistocytes. Stool guaiac positive. She is on PPI. Elevated nucleated RBC. Since transfusion, hgb 8 range. Patient has chronic thrombocytopenia and was on prednisone daily per Dr. Stockton. Patient was transfused 2 units of platelets 06/02- for a plt count of 13K. Plt count climbed to 31K but dropped to 10K and transfused again 06/09. Plt climbed to 35K -> 19K today Keep platelet count more than 10,000 unless there are signs of bleeding BM Bx 06/06 pathology showing normocellular marrow with trilineage hematopoiesis and no evidence of lymphoma or myeloid neoplasm. No clonal B-cell or increased blast production Continue monitor CBC and transfuse blood products as needed Wean Steroids. Appreciate hematology/oncology input (3) Pulmonary embolism: Qualifiers: Acute cor pulmonale presence: without acute cor pulmonale Chronicity: acute Pulmonary embolism type: unspecified Qualified Code(s): I26.99 - Other pulmonary embolism without acute cor pulmonale Code(s): I26.99 - Other pulmonary embolism without acute cor pulmonale Status: Acute Assessment and Plan: Patient was diagnosed with PE and right lower extremity DVT in April and was started on Eliquis. Patient was transition to argatroban infusion due to her thrombocytopenia Filter placed 06/07. Argatroban stopped. Repeat venous doppler negative for DVT on 06/07. (4) Cirrhosis of liver with ascites: Code(s): K74.60 - Unspecified cirrhosis of liver; R18.8 - Other ascites Status: Acute Assessment and Plan: Patient with anasarca with ascities, flank edema. Ascites only small to moderate by CT lumbar spine 05/[address] chest 06/05 showing large volume of ascites and splenomegaly. Abd US 06/06 showing cirrhosis, splenomegaly and distended GB with stones. CT A/P 06/10 cirrhosis, portal HTN, splenomegaly, moderate ascites, anasarca and cholelithiasis. Hepatitis and HIV negative. Started on Albumin and lasix. Negative fluid balance. Consider paracentesis. Continue compression stockings. Continue Lasix. Stop Albumin. Consider adding Spironolactone. (5) Diabetes mellitus with hyperglycemia: Qualifiers: Diabetes mellitus detention insulin use: without rodent exterminator use Diabetes mellitus type: type 2 Qualified Code(s): E11.65 - Type 2 diabetes mellitus with hyperglycemia Code(s): E11.65 - Type 2 diabetes mellitus with hyperglycemia Status: Acute Assessment and Plan: A1c 10 in April. The patient's blood glucose was reviewed on 06/13 Glucose still elevated despite dropping steroid dose. Continue to wean steroids Continue AccuCheks covering with sliding scale. Hypoglycemia protocol available as neede
[2023-06-13] MEDS: PANTOPRAZOLE SODIUM IV 40 MG VIAL IV PUSH ×2 (10:13→21:11)
[2023-06-13] MEDS: INSULIN GLARGINE (*BKC) 100 UNITS/ML 20 UNITS SUB-Q (10:13)
[2023-06-13] MEDS: ACYCLOVIR 400 MG TABLET PO ×3 (10:13→16:19)
[2023-06-13] MEDS: TOLNAFTATE 1% POWDER 45 GM BTL 1 APPLIC TOPICAL ×2 (10:14→21:14)
[2023-06-13] MEDS: methylPREDNISolone SOD SUCC 40 MG VIAL IV PUSH (10:14)
[2023-06-13] MEDS: FUROSEMIDE 20 MG TABLET PO (10:14)
[2023-06-13] MEDS: PRAVASTATIN SODIUM 20 MG TABLET 40 MG PO (10:14)
[2023-06-13] MEDS: oxyBUTYnin CHLORIDE XL 5 MG TAB.ER.24 10 MG PO (10:15)
[2023-06-13] MEDS: levoFLOXacin 500 MG TABLET PO (10:15)
[2023-06-13] MEDS: PROPRANOLOL HCL 20 MG TABLET PO ×2 (10:15→21:12)
[2023-06-13 12:59] LABS: Glucose Point of Care 164 mg/dl (65-105)
[2023-06-13 15:32] LABS: Zinc 61 mcg/dL (60-130)
[2023-06-13] MEDS: INSULIN ASPART (*BKC) 100 UNITS/ML SUB-Q ×2 (16:19→21:12)
[2023-06-13 16:26] LABS: Glucose Point of Care 250 mg/dl (65-105)
--- NOTE | 2023-06-13 18:31 | PDONCCN ---
HPI - Date of Consult Date/Time: 06/13/23 18:31 Requesting Physician: Claudio Sams MD Primary Care Provider: Jose Martin Boyd MD - Consult Narrative Reason for consult: Pancytopenia Narrative: Rachele Hoffman is a 82 year old female Rachele Hoffman is a 82 year old female with history of type 2 diabetes, hypertension, hyperlipidemia and chronic thrombocytopenia diagnosed almost 2 years ago. She was seen with Dr. Stockton last August in etiology for thrombocytopenia was not found. According to the patient she had bone marrow biopsy done 2 years ago that did not show any bone marrow disorders. She was also diagnosed with DVT involving the right popliteal and bilateral posterior tibial and peroneal vein in May 14, 2023. CT chest done same time also showed pulmonary embolism at the segmental level of the left lower lobe. She was started on Eliquis. Patient had CT-guided biopsy of 2.2 cm cavitary left upper lobe lung mass done on May 15, 2023 pathology only showed inflammation suggesting acute pneumonia. She was treated for pneumonia with clindamycin and Levaquin. Patient was discharged home on May 18 on prednisone 20 mg b.i.d.. She is readmitted for thrombocytopenia. Dr. Lozada saw the patient on 06/05/23 and recommended bone marrow biopsy which was performed on 06/06/23. I reviewed the pathology report which shows normocellular bone marrow with trilineage hematopoiesis There was no clonal process in flow cytometry either. Patient was started on solumedrol 125mg TID and then maintained BID for 8 days. patient started hallucinating with steroids and now inpatient team is weaning steroids. A CT chest performed 06/03/23 showed splenomegaly, large volume ascites and cavitary nodule in the left upper lobe with interval improvement consistent with pneumonia. CT scan of abdomen and pelvis done 06/10/23 shows liver cirrhosis, ascites, portal hypertension and splenomegaly. Review of Systems - Review of Systems Patient was seen at bedside. Daughter was present in the room as well. Patient states that she is very weak and not able to ambulate or transfer on her own. She has abdominal distention but no pain. She has fatigue and generalized weakness. Denies fever, chills or night sweats. Not sure if she has lost weight but states that she has no appetite. Denies nausea, vomiting or diarrhea. Denies hematochezia or melena. No hematuria. - Neurologic Denies headache(s), Denies focal weakness, Denies numbness PMFSH Medical History: Medical History (Last Updated 06/10/23 @ 10:43 by Ant Swain MD) Deep venous thrombosis Hyperlipidemia Hypertension Pulmonary embolism Retinal detachment, right Type 2 diabetes mellitus Surgical History: Surgical History (Last Reviewed 06/03/23 @ 14:32 by Rebeka Christopher PA-C) History of cataract extraction History of intestinal surgery Related to bowel obstruction, patient cannot provide further details. History of partial hysterectomy History of right knee joint replacement Family History: Family History (Last Reviewed 06/03/23 @ 14:32 by Rebeka Christopher PA-C) Son Acute myocardial infarction Mother Congestive heart failure Father Hypertension Sibling Alzheimer disease ALS (amyotrophic lateral sclerosis) - Social History Social History: Social History (Last Reviewed 06/03/23 @ 14:33 by Rebeka Christopher PA-C) Alcohol Use: Alcohol intake: never Substance Use: Substance use: never Substance use type: does not use Others: Spiritual care concerns: No Smoking Status: Smoking status: Never smoker Social Determinants of Health: Has the Lack of Transportation Kept You From Medical Appointments or From Getting Medications?: No Within the Past 12 Months, Were You Worried Whether Your Food Would Run Out Before You Got Money to Buy More?: Never True What is Your Housing Situation Today?: I Have Housing Are You Worried
[2023-06-13 20:14] LABS: Glucose Point of Care 326 mg/dl (65-105)
[2023-06-13] MEDS: MELATONIN 3 MG TABLET PO (21:13)
[2023-06-14] VITALS (16 sets, daily range): BP systolic 98–137; BP diastolic 50–69; PULSE 72–99; RESP 12–18; TEMP 36.3–36.8; O2SAT 99–100
[2023-06-14 05:58] LABS: Hematocrit 24.4 % (37.0-47.0); Hemoglobin 7.8 g/dL (12.0-15.0); Immature Granulocyte Absolute 0.02 K/mm3 (0.00-0.031); Immature Granulocyte Percent A 1.4 % (0-0.5); Immature Platelet Fraction Pct 4.2 % (0.9-11.2); Lymphocytes Absolute Auto 0.32 K/mm3 (0.9-3.2); Lymphocytes Percent Auto 23.2 % (18.3-44.2); Mean Corpuscular Hemoglobin 32.8 pg (26-34); Mean Corpuscular Volume 102.5 fl (80-100); Mean Platelet Volume 10.5 fl (7.4-10.4); Monocytes Absolute Auto 0.1 K/mm3 (0.1-0.6); Monocytes Percent Auto 5.8 % (2.6-8.5); Neutrophils Percent Auto 69.6 % (45.5-73.1); Red Blood Count 2.38 M/mm3 (4.2-5.4)
[2023-06-14 06:08] LABS: Alanine Aminotransferase 19 U/L (6-35); Albumin Level 3.2 g/dL (3.5-5.1); Alkaline Phosphatase 49 U/L (38-126); Anion Gap 4 mmol/L (8-16); Aspartate Amino Transferase 21 U/L (14-36); Bilirubin,Total 0.8 mg/dL (0.2-1.3); Blood Urea Nitrogen 34 mg/dL (7-17); Calcium 8.5 mg/dL (8.4-10.2); Carbon Dioxide 36 mmol/L (22-30); Chloride 100 mmol/L (98-107); Estimated Glomerular Filt Rate > 60; Glucose 129 mg/dL (65-110); Sodium 140 mmol/L (137-145)
[2023-06-14 06:16] LABS: White Blood Count 1.4 K/mm3 (4.5-10.0)
[2023-06-14 06:17] LABS: Platelet Count Result 14 k/mm3 (150-375)
[2023-06-14 06:30] LABS: Anisocytosis 1+ (NORMAL); Hypochromasia 1+ (NORMAL); Macrocytosis 1+ (NORMAL); Platelet Estimate Decreased (Adequate); Schistocytes None Seen (NORMAL)
[2023-06-14] MEDS: CENTRAL LINE FLUSH 10 ML IV PUSH ×3 (06:37→21:43)
[2023-06-14] MEDS: ACYCLOVIR 400 MG TABLET PO ×3 (08:45→17:38)
[2023-06-14] MEDS: FUROSEMIDE 20 MG TABLET PO (08:46)
[2023-06-14] MEDS: levoFLOXacin 500 MG TABLET PO (08:46)
[2023-06-14] MEDS: PROPRANOLOL HCL 20 MG TABLET PO (08:46)
[2023-06-14] MEDS: oxyBUTYnin CHLORIDE XL 5 MG TAB.ER.24 10 MG PO (08:47)
[2023-06-14] MEDS: PRAVASTATIN SODIUM 20 MG TABLET 40 MG PO (08:47)
[2023-06-14] MEDS: INSULIN GLARGINE (*BKC) 100 UNITS/ML 20 UNITS SUB-Q (08:48)
[2023-06-14] MEDS: PANTOPRAZOLE SODIUM IV 40 MG VIAL IV PUSH ×2 (08:48→21:36)
[2023-06-14] MEDS: methylPREDNISolone SOD SUCC 40 MG VIAL IV PUSH (08:48)
[2023-06-14] MEDS: TOLNAFTATE 1% POWDER 45 GM BTL 1 APPLIC TOPICAL ×2 (08:49→21:37)
--- NOTE | 2023-06-14 09:44 | PCNFU ---
Nutrition Follow-Up Complete: Increased protein energy needs related to wound healing as evidenced by pressure injuries, wound report Goal:Adequate PO intake at least 75% meals and supplements Maintain weight during admission Pt is progressing towards goal Pt current nutrition is 2gm NA/Diabetic/heart healthy diet. Glucerna shakes BID, JAMAL BID. Nutrition recommendation: continue with current plan of care Last recorded weight is 61.7 kg - increased from 57kg on admission Bowel Motility: +BM 06/12 Labs Reviewed: Hgb:7.8, HCT:24.4, Alb:3.2, K:3.0, BUN:34, Cr:0.6 Meds Noted: lasix, protonix,, lantus/novolog, solumendrol, KCL Skin: Stage II to sacrum, DTPI to buttocks Additional Notes: Pt continues on appropriate diet. Intake averages 50-75% most meals. Glucerna shakes in place as well as JAMAL for wound healing. Encourage good po intake of meals and supplements. Monitor intakes, labs, wound healing, supplement tolerance, weights, plan of care Follow up in 7 days
[2023-06-14] MEDS: POTASSIUM CHLORIDE INJ 40 MEQ in SODIUM CHLORIDE 0.9% IV 500 ML 130 MEQ IVPB (10:13)
[2023-06-14] MEDS: POTASSIUM CHLORIDE 20 MEQ ER TABLET 40 MEQ PO (10:17)
[2023-06-14 11:26] LABS: Glucose Point of Care 103 mg/dl (65-105)
[2023-06-14 13:11] LABS: Glucose Point of Care 159 mg/dl (65-105)
--- NOTE | 2023-06-14 16:31 | PM.IMPN ---
Progress Note: A&P Assessment and Plan (1) Confusion: Code(s): R41.0 - Disorientation, unspecified Status: Acute Assessment and Plan: Patient mildly confused beginning the morning on 06/11. CT brain showing no acute findings. Consider infectious etiology. CXR more likely edema. UA noted but already on abx. Could be related to steroids (was on Solu-Medrol 125mg IV Q12hr for 8 days). Dose cut back and will continue to dial this back. Could also be related to poor sleep (which steroids could contribute to this). Add melatonin. 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 SPEP showing a small M-spike. HIT Ab negative. UIF pending. SIF pending. Leukopenia with WBC 7582-7247. ANC 850 with 78% Neutrophils but no immature cells. Continue acyclovir. Hgb 9-10 range on admission but dropped to 6.4 on 06/07 requiring transfusion. B12/folate normal. Iron studies normal except low TIBC at 249. Smear did not show any schistocytes. Stool guaiac positive. She is on PPI. Elevated nucleated RBC. Since transfusion, hgb 8 range. Patient has chronic thrombocytopenia and was on prednisone daily per Dr. Stockton. Patient was transfused 2 units of platelets 06/02- for a plt count of 13K. Plt count climbed to 31K but dropped to 10K and transfused again 06/09. Plt climbed to 35K -> 19K today Keep platelet count more than 10,000 unless there are signs of bleeding BM Bx 06/06 pathology showing normocellular marrow with trilineage hematopoiesis and no evidence of lymphoma or myeloid neoplasm. No clonal B-cell or increased blast production Continue monitor CBC and transfuse blood products as needed Wean Steroids. Appreciate hematology/oncology input (3) Pulmonary embolism: Qualifiers: Pulmonary embolism type: unspecified Chronicity: acute Acute cor pulmonale presence: without acute cor pulmonale Qualified Code(s): I26.99 - Other pulmonary embolism without acute cor pulmonale Code(s): I26.99 - Other pulmonary embolism without acute cor pulmonale Status: Acute Assessment and Plan: Patient was diagnosed with PE and right lower extremity DVT in April and was started on Eliquis. Patient was transition to argatroban infusion due to her thrombocytopenia Filter placed 06/07. Argatroban stopped. Repeat venous doppler negative for DVT on 06/07. (4) Cirrhosis of liver with ascites: Code(s): K74.60 - Unspecified cirrhosis of liver; R18.8 - Other ascites Status: Acute Assessment and Plan: Patient with anasarca with ascities, flank edema. Ascites only small to moderate by CT lumbar spine 05/[address] chest 06/05 showing large volume of ascites and splenomegaly. Abd US 06/06 showing cirrhosis, splenomegaly and distended GB with stones. CT A/P 06/10 cirrhosis, portal HTN, splenomegaly, moderate ascites, anasarca and cholelithiasis. Hepatitis and HIV negative. Started on Albumin and lasix. Negative fluid balance. Consider paracentesis. Continue compression stockings. Continue Lasix. Stop Albumin. Consider adding Spironolactone. 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 The patient's blood glucose was reviewed on 06/13 Glucose still elevated despite dropping steroid dose. Continue to wean steroids Continue AccuCheks covering with sliding scal
[2023-06-14 21:33] LABS: Glucose Point of Care 279 mg/dl (65-105)
[2023-06-14 21:34] LABS: Glucose Point of Care 270 mg/dl (65-105)
[2023-06-14] MEDS: MELATONIN 3 MG TABLET PO (21:37)
[2023-06-14] MEDS: INSULIN ASPART (*BKC) 100 UNITS/ML SUB-Q (21:38)
[2023-06-15] VITALS (18 sets, daily range): BP systolic 102–125; BP diastolic 52–67; PULSE 73–113; RESP 16–18; TEMP 36.2–37.2; O2SAT 98–100
[2023-06-15] MEDS: CENTRAL LINE FLUSH 10 ML IV PUSH ×3 (06:46→21:32)
[2023-06-15 07:42] LABS: Eosinophils Percent Auto 0.7 % (0-4.4); Hematocrit 26.9 % (37.0-47.0); Hemoglobin 8.5 g/dL (12.0-15.0); Immature Granulocyte Absolute 0.03 K/mm3 (0.00-0.031); Immature Platelet Fraction Pct 4.7 % (0.9-11.2); Lymphocytes Absolute Auto 0.33 K/mm3 (0.9-3.2); Lymphocytes Percent Auto 22.1 % (18.3-44.2); Mean Corpuscular HGB Conc 31.6 g/dl (32-36); Mean Corpuscular Hemoglobin 32.7 pg (26-34); Mean Corpuscular Volume 103.5 fl (80-100); Mean Platelet Volume 11.2 fl (7.4-10.4); Monocytes Absolute Auto 0.1 K/mm3 (0.1-0.6); Monocytes Percent Auto 9.4 % (2.6-8.5); Neutrophils Percent Auto 65.8 % (45.5-73.1); Red Cell Distribution Width 17.6 % (11.5-14.5)
[2023-06-15 07:51] LABS: Alanine Aminotransferase 19 U/L (6-35); Albumin Level 3.4 g/dL (3.5-5.1); Alkaline Phosphatase 59 U/L (38-126); Anion Gap 3 mmol/L (8-16); Aspartate Amino Transferase 20 U/L (14-36); Bilirubin,Total 1.2 mg/dL (0.2-1.3); Blood Urea Nitrogen 34 mg/dL (7-17); Calcium 8.8 mg/dL (8.4-10.2); Carbon Dioxide 35 mmol/L (22-30); Chloride 102 mmol/L (98-107); Estimated Glomerular Filt Rate > 60; Glucose 128 mg/dL (65-110); Potassium 4.7 mmol/L (3.4-5.0); Sodium 140 mmol/L (137-145)
[2023-06-15 08:26] LABS: Glucose Point of Care 122 mg/dl (65-105)
[2023-06-15] MEDS: PROPRANOLOL HCL 20 MG TABLET PO ×2 (09:19→21:30)
[2023-06-15] MEDS: PANTOPRAZOLE SODIUM IV 40 MG VIAL IV PUSH ×2 (09:19→21:30)
[2023-06-15] MEDS: levoFLOXacin 500 MG TABLET PO (09:20)
[2023-06-15] MEDS: FUROSEMIDE 20 MG TABLET PO (09:20)
[2023-06-15] MEDS: ACYCLOVIR 400 MG TABLET PO ×3 (09:20→16:58)
[2023-06-15] MEDS: PRAVASTATIN SODIUM 20 MG TABLET 40 MG PO (09:20)
[2023-06-15] MEDS: oxyBUTYnin CHLORIDE XL 5 MG TAB.ER.24 10 MG PO (09:20)
[2023-06-15] MEDS: INSULIN GLARGINE (*BKC) 100 UNITS/ML 20 UNITS SUB-Q (09:20)
[2023-06-15] MEDS: predniSONE 20 MG TABLET 40 MG PO (09:21)
[2023-06-15] MEDS: TOLNAFTATE 1% POWDER 45 GM BTL 1 APPLIC TOPICAL ×2 (09:21→21:34)
[2023-06-15 09:34] LABS: White Blood Count 1.5 K/mm3 (4.5-10.0)
[2023-06-15 09:35] LABS: Platelet Count Result 10 k/mm3 (150-375)
[2023-06-15 09:36] LABS: Anisocytosis 1+ (NORMAL); Hypochromasia 1+ (NORMAL); Platelet Estimate Decreased (Adequate); Schistocytes None Seen (NORMAL)
--- NOTE | 2023-06-15 11:55 | PM.IMPN ---
Progress Note: A&P Assessment and Plan (1) Confusion: Code(s): R41.0 - Disorientation, unspecified Status: Acute Assessment and Plan: Patient mildly confused beginning the morning on 06/11. CT brain showing no acute findings. Consider infectious etiology. CXR more likely edema. UA noted but already on abx. Could be related to steroids (was on Solu-Medrol 125mg IV Q12hr for 8 days). Dose cut back and will continue to dial this back. Could also be related to poor sleep (which steroids could contribute to this). Add melatonin. 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 SPEP showing a small M-spike. HIT Ab negative. UIF pending. SIF pending. Leukopenia with WBC 1627-6035. ANC 850 with 78% Neutrophils but no immature cells. Continue acyclovir. Hgb 9-10 range on admission but dropped to 6.4 on 06/07 requiring transfusion. B12/folate normal. Iron studies normal except low TIBC at 249. Smear did not show any schistocytes. Stool guaiac positive. She is on PPI. Elevated nucleated RBC. Since transfusion, hgb 8 range. Patient has chronic thrombocytopenia and was on prednisone daily per Dr. Stockton. Patient was transfused 2 units of platelets 06/02- for a plt count of 13K. Plt count climbed to 31K but dropped to 10K and transfused again 06/09. Plt climbed to 35K -> 19K today Keep platelet count more than 10,000 unless there are signs of bleeding BM Bx 06/06 pathology showing normocellular marrow with trilineage hematopoiesis and no evidence of lymphoma or myeloid neoplasm. No clonal B-cell or increased blast production Continue monitor CBC and transfuse blood products as needed Wean Steroids. Appreciate hematology/oncology input 06/15: platelets dropped to 10, transfuse one unit and recheck, anticipate d/c tomorrow (3) Pulmonary embolism: Qualifiers: Acute cor pulmonale presence: without acute cor pulmonale Chronicity: acute Pulmonary embolism type: unspecified Qualified Code(s): I26.99 - Other pulmonary embolism without acute cor pulmonale Code(s): I26.99 - Other pulmonary embolism without acute cor pulmonale Status: Acute Assessment and Plan: Patient was diagnosed with PE and right lower extremity DVT in April and was started on Eliquis. Patient was transition to argatroban infusion due to her thrombocytopenia Filter placed 06/07. Argatroban stopped. Repeat venous doppler negative for DVT on 06/07. (4) Cirrhosis of liver with ascites: Code(s): K74.60 - Unspecified cirrhosis of liver; R18.8 - Other ascites Status: Acute Assessment and Plan: Patient with anasarca with ascities, flank edema. Ascites only small to moderate by CT lumbar spine 05/[address] chest 06/05 showing large volume of ascites and splenomegaly. Abd US 06/06 showing cirrhosis, splenomegaly and distended GB with stones. CT A/P 06/10 cirrhosis, portal HTN, splenomegaly, moderate ascites, anasarca and cholelithiasis. Hepatitis and HIV negative. Started on Albumin and lasix. Negative fluid balance. Consider paracentesis. Continue compression stockings. Continue Lasix. Stop Albumin. Consider adding Spironolactone. (5) Diabetes mellitus with hyperglycemia: Qualifiers: Diabetes mellitus intermediate insulin use: without intermediate use Diabetes mellitus type: type 2 Qualified Code(s): E11.65 - Type 2 diabetes mellitus with hyperglycemia Code(s): E11.65 - Type 2 diabetes mellitus with hyperglycemia Status: Acute Assessment and Plan: A1c 10 in April. The patient's blood glucose was reviewed on 06/15 Glucose still el
[2023-06-15 12:10] LABS: Glucose Point of Care 158 mg/dl (65-105)
[2023-06-15 16:18] LABS: Glucose Point of Care 294 mg/dl (65-105)
[2023-06-15] MEDS: SODIUM CHLORIDE 0.9% IV 250 ML 30 ML IV CONT (16:58)
[2023-06-15] MEDS: INSULIN ASPART (*BKC) 100 UNITS/ML SUB-Q ×2 (16:58→21:33)
--- NOTE | 2023-06-15 18:44 | PC.NURSE ---
Order obtained to transfuse 1 unit platelets, Platelets transfused without complication. Unable to cancel second unit of platelets, blood bank notified.
[2023-06-15] MEDS: MELATONIN 3 MG TABLET PO (21:31)
[2023-06-15 21:33] LABS: Glucose Point of Care 275 mg/dl (65-105)
[2023-06-16] VITALS (14 sets, daily range): BP systolic 106–131; BP diastolic 55–71; PULSE 77–112; RESP 16–24; TEMP 36–36.6; O2SAT 94–100
[2023-06-16 04:40] LABS: Hematocrit 23.2 % (37.0-47.0); Hemoglobin 7.4 g/dL (12.0-15.0); Immature Granulocyte Absolute 0.06 K/mm3 (0.00-0.031); Immature Granulocyte Percent A 6.1 % (0-0.5); Immature Platelet Fraction Pct 3.1 % (0.9-11.2); Lymphocytes Absolute Auto 0.19 K/mm3 (0.9-3.2); Lymphocytes Percent Auto 19.2 % (18.3-44.2); Mean Corpuscular HGB Conc 31.9 g/dl (32-36); Mean Corpuscular Hemoglobin 32.6 pg (26-34); Mean Corpuscular Volume 102.2 fl (80-100); Mean Platelet Volume 10.6 fl (7.4-10.4); Monocytes Absolute Auto 0.1 K/mm3 (0.1-0.6); Monocytes Percent Auto 8.1 % (2.6-8.5); Neutrophils Absolute Auto 0.7 K/mm3 (1.3-6.7); Neutrophils Percent Auto 66.6 % (45.5-73.1); Red Blood Count 2.27 M/mm3 (4.2-5.4); Red Cell Distribution Width 17.4 % (11.5-14.5)
[2023-06-16 04:52] LABS: Alanine Aminotransferase 19 U/L (6-35); Albumin Level 2.9 g/dL (3.5-5.1); Alkaline Phosphatase 50 U/L (38-126); Anion Gap -1 mmol/L (8-16); Aspartate Amino Transferase 19 U/L (14-36); Blood Urea Nitrogen 31 mg/dL (7-17); Calcium 8.5 mg/dL (8.4-10.2); Carbon Dioxide 35 mmol/L (22-30); Chloride 100 mmol/L (98-107); Estimated Glomerular Filt Rate > 60; Glucose 136 mg/dL (65-110); Potassium 3.4 mmol/L (3.4-5.0); Sodium 134 mmol/L (137-145)
[2023-06-16 05:06] LABS: Platelet Count Result 22 k/mm3 (150-375)
[2023-06-16] MEDS: CENTRAL LINE FLUSH 10 ML IV PUSH ×2 (06:08→14:50)
[2023-06-16 08:35] LABS: Glucose Point of Care 95 mg/dl (65-105)
--- NOTE | 2023-06-16 08:38 | PM.DS ---
DS: Admitting Diagnosis Discharge Date 06/16/23 Admitting Diagnosis low platelets DS: Discharge Diagnosis Discharge Diagnosis (1) Confusion: Code(s): R41.0 - Disorientation, unspecified Status: Acute Assessment and Plan: Patient mildly confused beginning the morning on 06/11. CT brain showing no acute findings. Consider infectious etiology. CXR more likely edema. UA noted but already on abx. Could be related to steroids (was on Solu-Medrol 125mg IV Q12hr for 8 days). Dose cut back and will continue to dial this back. Could also be related to poor sleep (which steroids could contribute to this). Add melatonin. 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 SPEP showing a small M-spike. HIT Ab negative. UIF pending. SIF pending. Leukopenia with WBC [id number]. ANC 850 with 78% Neutrophils but no immature cells. Continue acyclovir. Hgb 9-10 range on admission but dropped to 6.4 on 06/07 requiring transfusion. B12/folate normal. Iron studies normal except low TIBC at 249. Smear did not show any schistocytes. Stool guaiac positive. She is on PPI. Elevated nucleated RBC. Since transfusion, hgb 8 range. Patient has chronic thrombocytopenia and was on prednisone daily per Dr. Stockton. Patient was transfused 2 units of platelets 06/02- for a plt count of 13K. Plt count climbed to 31K but dropped to 10K and transfused again 06/09. Plt climbed to 35K -> 19K today Keep platelet count more than 10,000 unless there are signs of bleeding BM Bx 06/06 pathology showing normocellular marrow with trilineage hematopoiesis and no evidence of lymphoma or myeloid neoplasm. No clonal B-cell or increased blast production Continue monitor CBC and transfuse blood products as needed Wean Steroids. Appreciate hematology/oncology input 06/15: platelets dropped to 10, transfuse one unit and recheck, anticipate d/c tomorrow (3) Pulmonary embolism: Qualifiers: Acute cor pulmonale presence: without acute cor pulmonale Chronicity: acute Pulmonary embolism type: unspecified Qualified Code(s): I26.99 - Other pulmonary embolism without acute cor pulmonale Code(s): I26.99 - Other pulmonary embolism without acute cor pulmonale Status: Acute Assessment and Plan: Patient was diagnosed with PE and right lower extremity DVT in April and was started on Eliquis. Patient was transition to argatroban infusion due to her thrombocytopenia Filter placed 06/07. Argatroban stopped. Repeat venous doppler negative for DVT on 06/07. (4) Cirrhosis of liver with ascites: Code(s): K74.60 - Unspecified cirrhosis of liver; R18.8 - Other ascites Status: Acute Assessment and Plan: Patient with anasarca with ascities, flank edema. Ascites only small to moderate by CT lumbar spine 05/[address] chest 06/05 showing large volume of ascites and splenomegaly. Abd US 06/06 showing cirrhosis, splenomegaly and distended GB with stones. CT A/P 06/10 cirrhosis, portal HTN, splenomegaly, moderate ascites, anasarca and cholelithiasis. Hepatitis and HIV negative. Started on Albumin and lasix. Negative fluid balance. Consider paracentesis. Continue compression stockings. Continue Lasix. Stop Albumin. Consider adding Spironolactone. (5) Diabetes mellitus with hyperglycemia: Qualifiers: Diabetes mellitus assisted insulin use: without assisted use Diabetes mellitus type: type 2 Qualified Code(s): E11.65 - Type 2 diabetes mellitus with hyperglycemia Code(s): E11.65 - Type 2 diabetes mellitus with hyperglycemia Status: Acute Assessment a
[2023-06-16] MEDS: ACYCLOVIR 400 MG TABLET PO ×3 (09:40→19:04)
[2023-06-16] MEDS: oxyBUTYnin CHLORIDE XL 5 MG TAB.ER.24 10 MG PO (09:40)
[2023-06-16] MEDS: levoFLOXacin 500 MG TABLET PO (09:40)
[2023-06-16] MEDS: predniSONE 20 MG TABLET 40 MG PO (09:40)
[2023-06-16] MEDS: FUROSEMIDE 20 MG TABLET PO (09:40)
[2023-06-16] MEDS: PROPRANOLOL HCL 20 MG TABLET PO ×2 (09:41→20:52)
[2023-06-16] MEDS: PRAVASTATIN SODIUM 20 MG TABLET 40 MG PO (09:41)
[2023-06-16] MEDS: INSULIN GLARGINE (*BKC) 100 UNITS/ML 20 UNITS SUB-Q ×2 (09:41→20:55)
[2023-06-16] MEDS: PANTOPRAZOLE SODIUM IV 40 MG VIAL IV PUSH ×2 (09:47→20:51)
[2023-06-16 12:49] LABS: Glucose Point of Care 197 mg/dl (65-105)
[2023-06-16 13:07] LABS: Abnormal Protein Band 1 1 mg/dL; Creatinine, Random Urine 45 mg/dL (20-275); Total Protein/Creatinine Ratio 1089 mg/g creat (24-184)
[2023-06-16] MEDS: TOLNAFTATE 1% POWDER 45 GM BTL 1 APPLIC TOPICAL ×2 (14:50→20:52)
[2023-06-16 15:48] LABS: EDCOVIDSCREEN Negative (Negative)
[2023-06-16 18:12] LABS: Glucose Point of Care 363 mg/dl (65-105)
[2023-06-16] MEDS: INSULIN ASPART (*BKC) 100 UNITS/ML SUB-Q (19:04)
[2023-06-16 20:03] LABS: Glucose Point of Care 418 mg/dl (65-105)
[2023-06-16 20:15] LABS: Glucose Point of Care 437 mg/dl (65-105)
[2023-06-16] MEDS: MELATONIN 3 MG TABLET PO (20:49)
[2023-06-16] MEDS: INSULIN HUMAN REGULAR (*BKC) 100 UNITS/ML 10 UNITS SUB-Q (20:53)
== END 2023-06-16 21:46 | DRG 808 ==
LOC: ANHED 14:35 → ANHICU 17:28 → ANHIMU 06-16 08:38 → ANHICU 06-18 10:36 → ANHIMU 06-18 10:36
PROVIDERS: Internal Medicine; Physician Assistant; Radiology Diagnostic Radiology; Surgery; Admitting Provider Internal Medicine; Emergency Provider Emergency Medicine; PCP Hospitalist; Referring Provider Internal Medicine Hematology & Oncology; Visit Provider Student in an Organized Health Care Education/Training Program
PROC: 07DR3ZX Extraction of Iliac Bone Marrow, Percutaneous Approach, Diagnostic (ICD-10-PCS; principal; 2023-06-06 09:30)
PROC: 06H03DZ Insertion of Intraluminal Device into Inferior Vena Cava, Percutaneous Approach (ICD-10-PCS; principal; 2023-06-07 12:00)
DX: D61.818 Other pancytopenia (principal); J85.2 Abscess of lung without pneumonia; S32.020A Wedge compression fracture of second lumbar vertebra, initial encounter for closed fracture; E87.1 Hypo-osmolality and hyponatremia; H33.21 Serous retinal detachment, right eye; D68.59 Other primary thrombophilia; R18.8 Other ascites; I27.82 Chronic pulmonary embolism; K74.60 Unspecified cirrhosis of liver; E11.65 Type 2 diabetes mellitus with hyperglycemia; R91.8 Other nonspecific abnormal finding of lung field; Z20.822 Contact with and (suspected) exposure to COVID-19; I10 Essential (primary) hypertension; E78.5 Hyperlipidemia, unspecified; Z96.651 Presence of right artificial knee joint; Z90.711 Acquired absence of uterus with remaining cervical stump; Z98.49 Cataract extraction status, unspecified eye; Z86.718 Personal history of other venous thrombosis and embolism
CPT/HCPCS: 36415; 36430; 36569; 37191; 38222; 70450; 71045; 71250; 74176; 76700; 80048; 80053; 80074; 81001; 82274; 82525; 82570; 82607; 82728; 82746; 82784; 82948; 83540; 83550; 83615; 83735; 83930; 83935; 84100; 84156; 84166; 84300; 84439; 84443; 84480; 84540; 84630; 85025; 85027; 85046; 85055; 85610; 85730; 86022; 86023; 86038; 86334; 86335; 86703; 86850; 86900; 86901; 86923; 87086; 87088; 87106; 87426; 88184; 88185; 88237; 88261; 88280; 88285; 88305; 88311; 88313; 88341; 88342; 93005; 93308; 93970; 96366; 96375; 97110; 97161; 97165; 97530; 97535; 99285; A9270; C1751; C1880; C9113; C9803; G0378; G0432; J0883; J1642; J1815; J1940; J2405; J2920; J2930; J3010; J3475; J3480; J7040; J7042; J7050; J7060; J7512; P9016; P9034; P9047

== ENCOUNTER 2023-06-26 11:49 | Outpatient (RCR) | payer OTHER, MEDICARE, BC, SELFPAY ==
[2023-06-26 12:36] VITALS: BP 86/56; PULSE 95; RESP 17; TEMP 36.4; O2SAT 99
[2023-06-26 12:37] LABS: Mean Corpuscular HGB Conc 33.3 g/dl (32-36); Mean Corpuscular Hemoglobin 33.4 pg (26-34); Mean Corpuscular Volume 100.3 fl (80-100); Mean Platelet Volume 12.8 fl (7.4-10.4); Red Blood Count 2.99 M/mm3 (4.2-5.4); Red Cell Distribution Width 20.6 % (11.5-14.5); White Blood Count 5.9 K/mm3 (4.5-10.0)
[2023-06-26 12:40] LABS: Platelet Count Result 20 k/mm3 (150-375)
[2023-06-26] MEDS: SODIUM CHLORIDE 0.9% IV 250 ML 30 ML IV CONT (13:30)
[2023-06-26 13:41] VITALS: BP 94/56; PULSE 92; RESP 16; TEMP 36.4; O2SAT 100
[2023-06-26 13:56] VITALS: BP 92/55; PULSE 90; RESP 16; TEMP 36.3; O2SAT 100
[2023-06-26 14:11] VITALS: BP 99/53; PULSE 90; RESP 16; TEMP 36.2; O2SAT 98
[2023-06-26 14:36] VITALS: BP 94/55; PULSE 92; RESP 16; TEMP 36.3; O2SAT 100
[2023-06-26 14:45] VITALS: BP 92/52; PULSE 94; RESP 16; TEMP 36.3; O2SAT 100
== END 2023-09-24 23:59 | disposition home or self-care (01) ==
LOC: ANHCPCTRAN 11:49
PROVIDERS: PCP Hospitalist; Visit Provider Nurse Practitioner Family
DX: D69.6 Thrombocytopenia, unspecified (principal)
CPT/HCPCS: 36415; 36430; 85027; 85055; 86900; 86901; P9036; J7050

== ENCOUNTER 2023-07-16 16:36 | Inpatient (IN) | payer MEDICARE, BC, SELFPAY ==
[2023-07-16] VITALS (15 sets, daily range): BP systolic 83–133; BP diastolic 45–97; PULSE 96–145; RESP 14–29; TEMP 35.9–39.8; O2SAT 88–99; BMI 36.3
--- NOTE | ~2023-07-16 | XR_ITS ---
EXAMINATION: XR chest 1V portable DATE: 07/16/2023 17:14 INDICATION: Altered mental status. TECHNIQUE: A single frontal view of the chest was obtained. COMPARISON: Chest single view 06/11/2023, CT abdomen and pelvis 06/10/2023 FINDINGS: There are airspace opacities in left mid and lower lung zones. No pleural effusion or pneum othorax. The heart size is normal. There is an old healed fracture of proximal left humerus. IMPRESSION: 1. Worsened airspace opacities in left mid and lower lung zones, consistent with atelectasis versus p neumonia. Reviewed, dictated and finalized at location E. IMPRESSION: 1. Worsened airspace opacities in left mid and lower lung zones, consistent wit h atelectasis versus pneumonia.
--- NOTE | ~2023-07-16 | US_ITS ---
EXAMINATION: US venous doppler [facility] DATE: 07/17/2023 11:20 INDICATION: Lower limb pain and swelling TECHNIQUE: Grayscale ultrasound images without and with compression and Doppler ultrasound images of the bilateral lower extremity veins were obtained. COMPARISON: None. FINDINGS: The visualized portions of right common femoral vein, profunda (deep) femoral vein, femoral vein, pop liteal vein, posterior tibial veins, peroneal veins, gastrocnemius vein and greater saphenous vein ou tflow are patent. The visualized portions of left common femoral vein, profunda femoral vein, femoral vein, popliteal v ein, gastrocnemius vein and greater saphenous vein outflow are patent. The peroneal and posterior tib ial veins were unable be visualized at the left calf. IMPRESSION: 1. No deep venous thrombosis in either lower limb. Reviewed, dictated and finalized at location A.
--- NOTE | ~2023-07-16 | CT_ITS ---
EXAMINATION: CT brain wo con DATE: 07/16/2023 18:18 INDICATION: Altered level of consciousness. TECHNIQUE: Computed tomography (CT) of the head was performed without intravenous contrast. The mA wa s adjusted according to patient size. Iterative reconstruction technique was employed. The dose-lengt h product was 605.33 mGy-cm. COMPARISON: Head CT 06/11/2023 FINDINGS: There are scattered areas of low attenuation in the cerebral white matter. There is an old lacunar infarct in the left caudate nucleus. There is no intracranial hemorrhage, acute infarction, o r abnormal intracranial mass lesion. The ventricles are normal in size. The paranasal sinuses are julissa ar. There are likely changes of ocular lens replacement surgeries. The mastoid air cells are normal. IMPRESSION: 1. 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 2. Stable extensive nonspecific cerebral white matter disease, which likely represents chronic small vessel ischemic disease. Reviewed, dictated and finalized at location E. IMPRESSION: 1. 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 2. Stable extensive nonspecific cerebral white matter disease, which likely rep resents chronic small vessel ischemic disease.
--- NOTE | 2023-07-16 16:46 | ED.AMS ---
HPI - Altered Mental Status General Chief Complaint: Altered Mental Status Stated Complaint: possible sepsis Time Seen by Provider: 07/16/23 16:44 History of Present Illness HPI narrative: Pt presents with sudden onset of confusion/altered mental status per EMS. Pt noted to have fever in route and be tachycardic. Pt normally alert and oriented x 3 now oriented x 1. Related Data Home Medications Medication Instructions Recorded Confirmed oxybutynin chloride 10 mg 10 mg PO DAILY 10/10/22 06/02/23 tablet,extended release 24 hr pravastatin 40 mg tablet 40 mg PO DAILY 10/10/22 06/02/23 acyclovir 400 mg tablet 400 mg PO TID 05/14/23 06/03/23 ergocalciferol (vitamin D2) 1,250 1,250 mcg PO WEEKLY 05/14/23 06/02/23 mcg (50,000 unit) capsule tramadol 50 mg tablet 50 mg PO Q6H PRN Pain (Scale Score 05/14/23 06/02/23 4-6) Allergies Allergy/AdvReac Type Severity Reaction Status Date / Time Penicillins Allergy Mild HIVES Verified 05/14/23 13:05 Review of Systems Review of Systems: ROS unobtainable: Yes unobtainable due to mental status PMFSH Past Medical History Medical History (Updated 07/16/23 @ 19:19 by Verna Cervantes III, DO) Deep venous thrombosis Hyperlipidemia Hypertension Pulmonary embolism Retinal detachment, right Type 2 diabetes mellitus Surgical History Surgical History (Updated 06/05/23 @ 18:16 by Tung Lozada MD) History of cataract extraction History of intestinal surgery Related to bowel obstruction, patient cannot provide further details. History of partial hysterectomy History of right knee joint replacement Family History Family History Son Acute myocardial infarction Mother Congestive heart failure Father Hypertension Sibling Alzheimer disease ALS (amyotrophic lateral sclerosis) Social History Social History Social History: Surrogate medical decision maker: Jessica Wright, daughter. Code status: Full code. Smoking status: Never smoker Alcohol intake: never Substance use: never Substance use type: does not use Lack of Transportation: No Lack of Food: Never True Current Housing: I Have Housing Concerned About Future Housing: No Difficulty Paying Gas/Electric Bills: Decline to Answer Difficulty Paying for Meds: Decline to Answer Currently Unemployed: Decline to Answer Education: Decline to Answer Difficulty w/ Childcare or Family Care: Decline to Answer Spiritual care concerns: No Exam Const: Nutritional Appearance: well nourished Limitations: altered mental status Neck: Neck: no lymphadenopathy and no meningeal signs Resp: Effort & Inspection: normal respiratory effort Auscultation: clear to auscultation bilaterally Cardio: Rate: tachycardic Rhythm: regular rhythm GI: GI Palp: Yes Soft to palpation and No Tenderness to palpation present (GI) Auscultation: Hypoactive bowel sounds present Skin: General skin exam: normal color Rashes: no rashes Wounds: no wounds Neuro: General: moves all extremities, no meningeal signs and no focal motor deficits Extrem: General: normal to inspection and no clubbing, cyanosis or edema Course Vital Signs Vital signs: Vital Signs Temperature 103.3 F H 07/16/23 16:37 Pulse Rate 145 H 07/16/23 16:37 Respiratory Rate 21 H 07/16/23 16:37 Blood Pressure 133/77 07/16/23 16:37 Pulse Oximetry 88 L 07/16/23 16:37 Oxygen Delivery Room Air 07/16/23 16:37 Temperature 100.7 F H 07/16/23 18:31 Pulse Rate 124 H 07/16/23 18:31 Respiratory Rate 17 07/16/23 18:31 Blood Pressure 101/56 L 07/16/23 18:31 Pulse Oximetry 99 07/16/23 19:07 Oxygen Delivery Nasal Cannula 07/16/23 19:07 Oxygen Flow Rate 2 07/16/23 19:07 MDM - Altered Mental Status MDM Narrative Medical decision making narrative: with fever and altered ental status will do se
--- NOTE | 2023-07-16 17:10 | ECG_ITS ---
Measurements Intervals [place] Rate: 149 P: 79 AK: 127 QRS: -35 QRSD: 70 T: 121 QT: 323 QTc: 510 Interpretive Statements BASELINE ARTIFACT WITH POOR QUALITY ECG/DIFFICULT INTERPRETATION ATRIAL TACHYCARDIA, POSSIBLY SINUS WITH BASELINE ARTIFACT PRECLUDING MORE ACCURATE ATRIAL RHYTHM DIAGNOSIS POOR R-WAVE PROGRESSION LOW QRS VOLTAGE ABNORMAL ECG COMPARED TO ECG 06/02/2023 14:09:26 NO SIGNIFICANT CHANGES OTHER THAN SIGNIFICANT BASELINE NOISE Electronically Signed On 07-17-2023 11:55:58 CDT by Ilir Nguyen M.D.
[2023-07-16 17:46] LABS: Hematocrit 32.9 % (37.0-47.0); Hemoglobin 10.2 g/dL (12.0-15.0); Immature Platelet Fraction Pct 2.4 % (0.9-11.2); Mean Corpuscular Hemoglobin 35.5 pg (26-34); Mean Corpuscular Volume 114.6 fl (80-100); Mean Platelet Volume 10.1 fl (7.4-10.4); Platelet Count Result 102 k/mm3 (150-375); Red Blood Count 2.87 M/mm3 (4.2-5.4); Red Cell Distribution Width 22.2 % (11.5-14.5); White Blood Count 14.4 K/mm3 (4.5-10.0)
[2023-07-16 18:00] LABS: Alanine Aminotransferase 25 U/L (6-35); Albumin Level 2.9 g/dL (3.5-5.1); Alkaline Phosphatase 238 U/L (38-126); Aspartate Amino Transferase 55 U/L (14-36); Bilirubin,Total 2.7 mg/dL (0.2-1.3); Blood Urea Nitrogen 21 mg/dL (7-17); CRP 3.1 mg/dL (<1.0); Calcium 8.8 mg/dL (8.4-10.2); Carbon Dioxide 29 mmol/L (22-30); Chloride 102 mmol/L (98-107); Estimated Glomerular Filt Rate > 60; Glucose 117 mg/dL (65-110); Potassium 4.3 mmol/L (3.4-5.0)
[2023-07-16] MEDS: ACETAMINOPHEN 500 MG TABLET 1000 MG PO (18:01)
[2023-07-16] MEDS: SODIUM CHLORIDE 0.9% IV 1,000 ML 999 ML IV CONT ×2 (18:02→19:53)
[2023-07-16 18:04] LABS: Anion Gap 5 mmol/L (8-16); Sodium 136 mmol/L (137-145)
[2023-07-16 18:10] LABS: Lactic Acid Reflex 2.4 mmol/L (0.7-2.0)
[2023-07-16 18:11] LABS: INR 1.4; Prothrombin Time 17.7 Seconds (11.1-14.7)
[2023-07-16 18:12] LABS: Partial Thromboplastin Time 26.9 SECONDS (22.3-36.8)
[2023-07-16 18:19] LABS: Band Neutrophils Percent 3 % (0-6); Lymphocytes Absolute Manual 0.86 K/mm3 (1.1-4.5); Monocytes Absolute Manual 0.14 K/mm3 (0.1-0.90); Monocytes Percent Manual 1 % (3-9); Neutrophils Absolute Manual 13.39 K/mm3 (1.7-7.2); Neutrophils Percent Manual 90 % (46-73); Nucleated Red Blood Cells 1 %; Platelet Estimate Decreased (Adequate); Schistocytes None Seen (NORMAL); Total Cells Counted 100
[2023-07-16 18:20] LABS: Anisocytosis 3+ (NORMAL); Hypochromasia 1+ (NORMAL); Polychromasia 1+ (NORMAL)
[2023-07-16 18:25] LABS: Appearance Urine Turbid (Clear); Bacteria Urine 4+ /hpf; Bilirubin Urine Negative (Negative); Blood Urine 3+ (Negative); Color Urine Yellow (Yellow); Glucose Urine UA Negative (Negative); Ketones Urine Negative (Negative); Leukocyte Esterase Ur 3+ LEU/UL (Negative); Need Manual Microscopic Reviewed; Nitrate Urine Positive (Negative); Non Pathogenic Casts >20; Protein Urine Trace mg/dL (Negative); Squamous Epithelial Cell Urine Moderate /hpf (Few); Urobilinogen Urine 0.2 mg/dL (<2.0); WBC Urine >100 /hpf
[2023-07-16 18:29] LABS: Add Urine Microscopic? YES
[2023-07-16] MEDS: AZITHROMYCIN 500 MG/NS 250 ML 500 MG/250 ML BAG 250 MG IVPB (18:29)
[2023-07-16 18:38] LABS: Influenza A QL RT-PCR Negative (Negative); Influenza B QL RT-PCR Negative (Negative); SARS-CoV-2 RNA PCR Negative (Negative)
--- NOTE | 2023-07-16 18:49 | PM.IMHP ---
H&P: HPI History of Present Illness Date/Time: 07/16/23 18:49 Chief Complaint: Confusion/altered mental status and fever Narrative: This is an 82-year-old female patient who is residing at [facility] where she is receiving therapy after hospitalization. Patient's daughter states that patient has dysuria for over a week and has had an indwelling Vela catheter for over 2 weeks. She reports that they have been asking the nursing to check urine sample but it has not been done. The daughter came to visit patient today and found her to be very confused and altered. She also saw the patient having chills and shortness of breath. The daughter saw the patient yesterday and patient was doing fine. During EMS transport patient was noted to be afebrile and tachycardic. Workup in the emergency department shows that she has elevated white blood cell count with shift to the left and some bands present. Chest x-ray concerning for possible pneumonia as well as urinary tract infection on UA. Culture is pending. Patient started on Rocephin and azithromycin and vancomycin. MRSA swab of the nares ordered an COVID flu testing ordered. Review of Systems Review of Systems: All systems reviewed & are unremarkable except as noted in HPI and below PMFSH Past Medical History Medical History Deep venous thrombosis Hyperlipidemia Hypertension Pulmonary embolism Retinal detachment, right Type 2 diabetes mellitus Surgical History Surgical History History of cataract extraction History of intestinal surgery Related to bowel obstruction, patient cannot provide further details. History of partial hysterectomy History of right knee joint replacement Family History Family History Son Acute myocardial infarction Mother Congestive heart failure Father Hypertension Sibling Alzheimer disease ALS (amyotrophic lateral sclerosis) Social History Social History Social History: Surrogate medical decision maker: Jessica Wright, daughter. Code status: Full code. Smoking status: Never smoker Alcohol intake: never Substance use: never Substance use type: does not use Lack of Transportation: No Lack of Food: Never True Current Housing: I Have Housing Concerned About Future Housing: No Difficulty Paying Gas/Electric Bills: No Difficulty Paying for Meds: No Currently Unemployed: No Education: High School Diploma/GED Difficulty w/ Childcare or Family Care: No Spiritual care concerns: No Meds Home Medications and Allergies Home Medications Medication Instructions Recorded Confirmed Type acyclovir 400 mg tablet 400 mg PO TID 05/14/23 07/16/23 History ergocalciferol (vitamin D2) 1,250 1,250 mcg PO WEEKLY 05/14/23 07/16/23 History mcg (50,000 unit) capsule furosemide 20 mg tablet 20 mg PO DAILY 1 month #30 tabs 06/16/23 07/16/23 Rx ascorbic acid (vitamin C) 500 mg 500 mg PO BID 07/16/23 07/16/23 History tablet atorvastatin 10 mg tablet 10 mg PO HS 07/16/23 07/16/23 History bisacodyl 10 mg rectal suppository 10 mg RECTAL DAILY PRN Constipation 07/16/23 07/16/23 History calcium 500 mg tablet 500 mg PO DAILY 07/16/23 07/16/23 History glimepiride 4 mg tablet 4 mg PO BID 07/16/23 07/16/23 History insulin glargine 100 unit/mL 24 unit subcut DAILY 07/16/23 07/16/23 History subcutaneous solution (Lantus U-100 Insulin) insulin lispro 100 unit/mL 1 sliding scale dose subcut 07/16/23 07/16/23 History subcutaneous pen (Humalog KwikPen USEASDIRECTD (U-100) Insulin) magnesium citrate (Citroma oral 300 ml PO DAILY PRN Constipation 07/16/23 07/16/23 History solution) magnesium hydroxide 400 mg/5 mL 30 ml PO HS PRN Constipation 07/16/23 07/16/23 History oral suspension mu
[2023-07-16] MEDS: SODIUM CHLORIDE 0.9% IV 1,000 ML 999 ML (19:08)
[2023-07-16 19:21] LABS: RSV RNA, RT-PCR Negative (Negative)
[2023-07-16 20:58] LABS: Reflex Lactic Acid Yes or No Add Lactic
--- NOTE | 2023-07-16 21:31 | ADMGEN ---
This patient, Rachele Hoffman, was admitted to IMU Room 200-01. Patient/family oriented to hospital policies and general routines including ID bracelet, bed and alarms, visiting hours, pain management, procedures, bathroom and other care routines, personal items, smoking policy, room service/diet, and visiting hours. Information on how to activate the Rapid Response Team has been discussed. Patient/Family are encouraged to report perceived risks to care and to ask questions if they do not understand what they are told or what they should do.
[2023-07-16 21:50] LABS: Lactic Acid 1.3 mmol/L (0.7-2.0)
[2023-07-17] VITALS (14 sets, daily range): BP systolic 99–104; BP diastolic 54–75; PULSE 53–105; RESP 12–20; TEMP 36.3–36.5; O2SAT 91–100; BMI 36.3
[2023-07-17 00:57] LABS: Hemoglobin A1C 5.1 % (<5.7)
[2023-07-17 04:34] LABS: Basophils Percent Auto 0.1 % (0.2-1.2); Eosinophils Percent Auto 0.1 % (0-4.4); Hematocrit 24.9 % (37.0-47.0); Hemoglobin 7.6 g/dL (12.0-15.0); Immature Granulocyte Absolute 0.03 K/mm3 (0.00-0.031); Immature Granulocyte Percent A 0.4 % (0-0.5); Immature Platelet Fraction Pct 3.7 % (0.9-11.2); Lymphocytes Absolute Auto 1.03 K/mm3 (0.9-3.2); Lymphocytes Percent Auto 14.1 % (18.3-44.2); Mean Corpuscular HGB Conc 30.5 g/dl (32-36); Mean Corpuscular Hemoglobin 35.3 pg (26-34); Mean Corpuscular Volume 115.8 fl (80-100); Mean Platelet Volume 10.1 fl (7.4-10.4); Monocytes Absolute Auto 0.6 K/mm3 (0.1-0.6); Monocytes Percent Auto 7.9 % (2.6-8.5); Neutrophils Absolute Auto 5.7 K/mm3 (1.3-6.7); Neutrophils Percent Auto 77.4 % (45.5-73.1); Platelet Count Result 45 k/mm3 (150-375); Red Blood Count 2.15 M/mm3 (4.2-5.4); Red Cell Distribution Width 21.6 % (11.5-14.5); White Blood Count 7.3 K/mm3 (4.5-10.0)
[2023-07-17 04:45] LABS: Ammonia < 9 umol/L (9-30)
[2023-07-17 04:46] LABS: Alanine Aminotransferase 21 U/L (6-35); Albumin Level 2.1 g/dL (3.5-5.1); Alkaline Phosphatase 146 U/L (38-126); Anion Gap 4 mmol/L (8-16); Aspartate Amino Transferase 35 U/L (14-36); Bilirubin,Total 0.8 mg/dL (0.2-1.3); Blood Urea Nitrogen 19 mg/dL (7-17); Calcium 7.6 mg/dL (8.4-10.2); Carbon Dioxide 26 mmol/L (22-30); Chloride 107 mmol/L (98-107); Estimated Glomerular Filt Rate > 60; Glucose 92 mg/dL (65-110); Sodium 137 mmol/L (137-145)
[2023-07-17] MEDS: SODIUM CHLORIDE 0.9% IV 1,000 ML 100 ML IV CONT (05:41)
--- NOTE | 2023-07-17 08:10 | PM.IMPN ---
Progress Note: A&P Assessment and Plan (1) Septic shock: Code(s): A41.9 - Sepsis, unspecified organism; R65.21 - Severe sepsis with septic shock Status: Acute Assessment and Plan: Likely due to urine infection from chronic indwelling Vela catheter but also findings of possible pneumonia versus atelectasis. As patient has spent significant amount of time in the healthcare setting over the past several months, ordered vancomycin Rocephin and azithromycin for possible healthcare acquired pneumonia. MRSA swab of the nares ordered. COVID test is negative. 07/17: switch abx to vanc, cefepime, azithromycin, f/u blood cultures, 1/2 positive for GNB (2) Acute UTI: Code(s): N39.0 - Urinary tract infection, site not specified Status: Acute Assessment and Plan: See above (3) Pneumonia: Code(s): J18.9 - Pneumonia, unspecified organism Status: Acute Assessment and Plan: Antibiotics as above (4) Confusion: Code(s): R41.0 - Disorientation, unspecified Status: Acute Assessment and Plan: Likely due to above (5) Cirrhosis of liver with ascites: Code(s): K74.60 - Unspecified cirrhosis of liver; R18.8 - Other ascites Status: Acute Assessment and Plan: Abdomen is large and lower extremities have pitting edema but the abdominal cavity is not taut or requiring immediate paracentesis will check ammonia level with next lab draw (6) Thrombocytopenia: Code(s): D69.6 - Thrombocytopenia, unspecified Status: Acute Assessment and Plan: Chronic, recent admission required several transfusions due to severe thrombocytopenia. Plan Code status: Full code Diet: NPO except ice chips and meds VTE prophylaxis: SCDs, no anticoagulants due to thrombocytopenia Subjective Date/time seen: 07/17/23 08:10 Interval history: 82-year-old female from nursing facility is presenting with dysuria and currently being treated for UTI and possible community-acquired pneumonia. No overnight events noted. No chest pain or shortness of breath. No nausea, vomiting or diarrhea. No fevers or chills. Review of Systems Review of Systems: 12 point review of systems was assessed and was negative except as noted in the HPI Exam Narrative: General: No acute distress, alert and oriented per baseline HEENT: Atraumatic, normocephalic, mucous membranes moist CV: Regular rate and rhythm, S1, S2 Lungs: Clear to auscultation bilaterally, no rales or crackles noted, no wheezes, good air entry Abdomen: Soft, nontender, nondistended Extremities: Normal to inspection, 3+ pitting edema B/L LE Skin: No rashes noted, no lesions or wounds seen Psych: Euthymic, normal affect Objective Data Vital Signs Vital Signs: Vital Signs - 24 hr 07/16/23 16:37 07/16/23 16:59 07/16/23 17:01 Temperature 103.3 F H 103.4 F H Pulse Rate 145 H 122 H 145 H Respiratory Rate 21 H 22 H Blood Pressure 133/77 127/76 Pulse Oximetry 88 L 98 Oxygen Delivery Room Air Oxygen Flow Rate 07/16/23 17:48 07/16/23 18:01 07/16/23 19:07 Temperature 103.6 F H 103.4 F H Pulse Rate 122 H 105 H Respiratory Rate 29 H 18 Blood Pressure 108/97 H 110/59 L Pulse Oximetry 97 98 99 Oxygen Delivery Nasal Cannula Oxygen Flow Rate 2 07/16/23 18:25 07/16/23 18:31 07/16/23 18:31 Temperature 102.7 F H 102.4 F H 100.7 F H Pulse Rate 128 H 124 H Respiratory Rate 16 17 Blood Pressure 94/57 L 101/56 L Pulse Oximetry 93 91 Oxygen Delivery Oxygen Flow Rate 07/16/23 19:17 07/16/23 20:17 07/16/23 21:11 Temperature 98.8 F Pulse Rate 119 H 108 H 98 Respiratory Rate 14 20 19 Blood Pressure 83/47 L 96/53 L 104/58 L Pulse Oximetry 99 99 97 Oxygen Delivery Oxygen Flow Rate 07/16/23 21:23 07/16/23 21:30 07/16/23 22:00 Temperature 97.9 F Pulse Rate 112 H 102 H 98 Respiratory Rate 20 Blood Pressure 98/52 L Puls
[2023-07-17] MEDS: DEXTROSE 50% 25 GM/50 ML SYRINGE IV PUSH (08:38)
[2023-07-17] MEDS: MULTIVITAMINS THERAPEUTIC TAB (*BKC) 1 TABLET PO (08:41)
[2023-07-17] MEDS: PROPRANOLOL HCL 20 MG TABLET PO ×2 (08:41→16:55)
[2023-07-17] MEDS: ACYCLOVIR 400 MG TABLET PO ×3 (08:41→16:55)
[2023-07-17] MEDS: CALCIUM CARBONATE (OSCAL) 500 MG TABLET PO (08:41)
[2023-07-17] MEDS: POTASSIUM CHLORIDE 20 MEQ ER TABLET 40 MEQ PO (08:41)
[2023-07-17] MEDS: ASCORBIC ACID 500 MG TABLET PO ×2 (08:41→16:55)
[2023-07-17] MEDS: FUROSEMIDE 20 MG TABLET PO (08:41)
[2023-07-17 09:04] LABS: Glucose Point of Care 136 mg/dl (65-105)
[2023-07-17 09:04] LABS: Glucose Point of Care 62 mg/dl (65-105)
[2023-07-17 09:04] LABS: Glucose Point of Care 64 mg/dl (65-105)
[2023-07-17] MEDS: FUROSEMIDE INJ 40 MG/4 ML VIAL 20 MG IV PUSH (10:35)
[2023-07-17 11:56] LABS: Glucose Point of Care 121 mg/dl (65-105)
[2023-07-17] MEDS: CEFEPIME 2 GM/NS 50 ML 2 GM/50 ML BAG IVPB (14:44)
[2023-07-17] MEDS: AZITHROMYCIN 500 MG/NS 250 ML 500 MG/250 ML BAG 250 MG IVPB (16:57)
[2023-07-17 17:40] LABS: Glucose Point of Care 120 mg/dl (65-105)
--- NOTE | 2023-07-17 20:21 | PC.NURSE ---
This patient, Rachele Hfofman, was transferred to [ 323-01] on 07/17/23 at 2020. Personal belongings sent with patient. Report given to [ Lesley treviño]. Appropriate documentation sent with patient.
[2023-07-17] MEDS: ATORVASTATIN 10 MG TABLET PO (20:27)
[2023-07-17 21:13] LABS: Glucose Point of Care 157 mg/dl (65-105)
[2023-07-18] MEDS: CEFEPIME 2 GM/NS 50 ML 2 GM/50 ML BAG IVPB (01:11)
--- NOTE | 2023-07-18 02:59 | ADMGEN ---
This patient, Rachele Hoffman, was admitted to [facility] Surg Room 323-01 at 2024, transferred from IMU. Patient/family oriented to hospital policies and general routines including ID bracelet, bed and alarms, visiting hours, pain management, procedures, bathroom and other care routines, personal items, smoking policy, room service/diet, and visiting hours. Information on how to activate the Rapid Response Team has been discussed. Patient/Family are encouraged to report perceived risks to care and to ask questions if they do not understand what they are told or what they should do.
[2023-07-18 06:00] VITALS: BP 103/57; PULSE 96; RESP 16; TEMP 36; O2SAT 95
[2023-07-18 06:57] LABS: Basophils Percent Auto 0.3 % (0.2-1.2); Eosinophils Percent Auto 0.6 % (0-4.4); Hemoglobin 8.2 g/dL (12.0-15.0); Immature Granulocyte Absolute 0.02 K/mm3 (0.00-0.031); Immature Granulocyte Percent A 0.3 % (0-0.5); Immature Platelet Fraction Pct 3.3 % (0.9-11.2); Lymphocytes Percent Auto 16.5 % (18.3-44.2); Mean Corpuscular HGB Conc 31.5 g/dl (32-36); Mean Corpuscular Hemoglobin 35.3 pg (26-34); Mean Corpuscular Volume 112.1 fl (80-100); Mean Platelet Volume 10.2 fl (7.4-10.4); Monocytes Absolute Auto 0.7 K/mm3 (0.1-0.6); Monocytes Percent Auto 9.9 % (2.6-8.5); Neutrophils Absolute Auto 4.8 K/mm3 (1.3-6.7); Neutrophils Percent Auto 72.4 % (45.5-73.1); Platelet Count Result 59 k/mm3 (150-375); Red Blood Count 2.32 M/mm3 (4.2-5.4); Red Cell Distribution Width 21.7 % (11.5-14.5); White Blood Count 6.7 K/mm3 (4.5-10.0)
[2023-07-18 07:11] LABS: Alanine Aminotransferase 20 U/L (6-35); Albumin Level 2.2 g/dL (3.5-5.1); Alkaline Phosphatase 129 U/L (38-126); Anion Gap 3 mmol/L (8-16); Aspartate Amino Transferase 32 U/L (14-36); Bilirubin,Total 0.7 mg/dL (0.2-1.3); Blood Urea Nitrogen 20 mg/dL (7-17); Calcium 7.7 mg/dL (8.4-10.2); Carbon Dioxide 28 mmol/L (22-30); Chloride 105 mmol/L (98-107); Estimated Glomerular Filt Rate > 60; Glucose 111 mg/dL (65-110); Potassium 3.5 mmol/L (3.4-5.0); Sodium 136 mmol/L (137-145)
[2023-07-18 07:55] LABS: Glucose Point of Care 106 mg/dl (65-105)
[2023-07-18 09:18] VITALS: PULSE 101
[2023-07-18] MEDS: FUROSEMIDE 20 MG TABLET PO (09:18)
[2023-07-18] MEDS: PROPRANOLOL HCL 20 MG TABLET PO ×2 (09:18→17:28)
[2023-07-18] MEDS: ASCORBIC ACID 500 MG TABLET PO ×2 (09:18→17:28)
[2023-07-18] MEDS: POTASSIUM CHLORIDE 20 MEQ ER TABLET 40 MEQ PO (09:18)
[2023-07-18] MEDS: CALCIUM CARBONATE (OSCAL) 500 MG TABLET PO (09:18)
[2023-07-18] MEDS: MULTIVITAMINS THERAPEUTIC TAB (*BKC) 1 TABLET PO (09:18)
[2023-07-18] MEDS: ACYCLOVIR 400 MG TABLET PO ×3 (09:18→17:28)
[2023-07-18 09:20] VITALS: BP 121/60; PULSE 108; O2SAT 97
[2023-07-18 11:46] LABS: Glucose Point of Care 161 mg/dl (65-105)
--- NOTE | 2023-07-18 11:48 | PM.DS ---
DS: Admitting Diagnosis Discharge Date 07/18/2023 Admitting Diagnosis Pneumonia Altered mental status UTI DS: Discharge Diagnosis Discharge Diagnosis (1) Pneumonia: Code(s): J18.9 - Pneumonia, unspecified organism Status: Acute (2) Acute UTI: Code(s): N39.0 - Urinary tract infection, site not specified Status: Acute (3) Altered mental status: Code(s): R41.82 - Altered mental status, unspecified Status: Acute DS: Summary Hospital Course Hospital Course: This is an 82-year-old female patient who is residing at [facility] where she is receiving therapy after hospitalization.? Patient's daughter states that patient has dysuria for over a week and has had an indwelling Vela catheter for over 2 weeks.? The daughter came to visit patient today and found her to be very confused and altered.? She also saw the patient having chills and shortness of breath.? Workup in the emergency department shows that she has elevated white blood cell count with shift to the left and some bands present.? Chest x-ray concerning for possible pneumonia as well as urinary tract infection on UA.? Patient started on Rocephin and azithromycin and vancomycin.? Patient is clinically stable at this time and is being [facility] with oral Levaquin for UTI and pneumonia since she has allergy to penicillin Time Spent with Patient Time attestation: Total time spent providing and/or coordinating discharge services: DS: Data Data Completed and Pending Labs on day of discharge: Labs from last 24 hours 07/18/23 07/18/23 07/18/23 11:44 07:53 06:50 WBC 6.7 RBC 2.32 L Hgb 8.2 L Hct 26.0 L MCV 112.1 H MCH 35.3 H MCHC 31.5 L RDW 21.7 H Plt Count 59 L MPV 10.2 Immature Gran % (Auto) 0.3 Neut % (Auto) 72.4 Lymph % (Auto) 16.5 L [place] % (Auto) 9.9 H Eos % (Auto) 0.6 Baso % (Auto) 0.3 Lymph # (Auto) 1.10 [place] # (Auto) 0.7 H Eos # (Auto) 0.0 Baso # (Auto) 0.0 Abs Immat Gran (auto) 0.02 Absolute Neuts (auto) 4.8 Absolute Nucleated RBC 0.0 Nucleated RBC % 0.0 % Immature Plt Fraction 3.3 Sodium 136 L Potassium 3.5 Chloride 105 Carbon Dioxide 28 Anion Gap 3 L BUN 20 H Creatinine 0.60 L Estim Creat Clear Calc Not Reportable Estimated GFR > 60 Glucose 111 H POC Capillary Glucose 161 H 106 H Calcium 7.7 L Total Bilirubin 0.7 AST 32 ALT 20 Alkaline Phosphatase 129 H Total Protein 5.0 L Albumin 2.2 L 07/17/23 07/17/23 07/17/23 20:24 16:25 11:51 WBC RBC Hgb Hct MCV MCH MCHC RDW Plt Count MPV Immature Gran % (Auto) Neut % (Auto) Lymph % (Auto) [place] % (Auto) Eos % (Auto) Baso % (Auto) Lymph # (Auto) [place] # (Auto) Eos # (Auto) Baso # (Auto) Abs Immat Gran (auto) Absolute Neuts (auto) Absolute Nucleated RBC Nucleated RBC % % Immature Plt Fraction Sodium Potassium Chloride Carbon Dioxide Anion Gap BUN Creatinine Estim Creat Clear Calc Estimated GFR Glucose POC Capillary Glucose 157 H 120 H 121 H Calcium Total Bilirubin AST ALT Alkaline Phosphatase Total Protein Albumin Preliminary micro results at discharge 07/16/23 17:46 Blood Culture - Preliminary Blood Gram negative bacilli isolated 07/16/23 17:52 Blood Culture - Preliminary Blood Gram negative bacilli isolated Discharge Plan Discharge Discharging Clinician: Akhil Lay Anticipated Discharge Date/Time: 07/18/23 11:12 Patient Disposition: SNF Activity: no preference Diet: heart healthy Stand Alone Forms: General Discharge Information Follow-up/Referrals: Bryan,MD Familia [Primary Care Provider] - Discharge Medications: New levofloxacin 500 mg tablet 500 mg PO DAILY Qty: 5 0RF Continued acyclov
--- NOTE | 2023-07-18 11:52 | PM.IMPN ---
Progress Note: A&P Assessment and Plan (1) Acute UTI: Code(s): N39.0 - Urinary tract infection, site not specified Status: Acute Assessment and Plan: Urine culture growing ESBL. Start patient on IV meropenem. Will discontinue Rocephin, vancomycin, azithromycin (2) Pneumonia: Code(s): J18.9 - Pneumonia, unspecified organism Status: Acute Assessment and Plan: Antibiotics as above (3) Confusion: Code(s): R41.0 - Disorientation, unspecified Status: Acute Assessment and Plan: Likely due to pneumonia and UTI (4) Cirrhosis of liver with ascites: Code(s): K74.60 - Unspecified cirrhosis of liver; R18.8 - Other ascites Status: Acute Assessment and Plan: Chronic (5) Thrombocytopenia: Code(s): D69.6 - Thrombocytopenia, unspecified Status: Acute Assessment and Plan: Chronic, recent admission required several transfusions due to severe thrombocytopenia. Plan VTE prophylaxis: SCDs, no anticoagulants due to thrombocytopenia Subjective Date/time seen: 07/18/23 11:52 Interval history: Stable Review of Systems Review of Systems: 12 point review of systems was assessed and was negative except as noted in the HPI Exam Narrative: General: No acute distress, alert and oriented per baseline HEENT: Atraumatic, normocephalic, mucous membranes moist CV: Regular rate and rhythm, S1, S2 Lungs: Clear to auscultation bilaterally, no rales or crackles noted, no wheezes, good air entry Abdomen: Soft, nontender, nondistended Extremities: Normal to inspection, 3+ pitting edema B/L LE Skin: No rashes noted, no lesions or wounds seen Psych: Euthymic, normal affect Objective Data Vital Signs Vital Signs: Vital Signs - 24 hr 07/17/23 11:59 07/17/23 12:00 07/17/23 12:00 Temperature 97.7 F Pulse Rate 87 88 Respiratory Rate 16 Blood Pressure 100/75 Pulse Oximetry 100 100 Oxygen Delivery Nasal Cannula Oxygen Flow Rate 2 07/17/23 14:00 07/17/23 16:55 07/17/23 16:00 Temperature 97.4 F L Pulse Rate 95 93 104 H Respiratory Rate 18 Blood Pressure 104/57 L Pulse Oximetry 91 Oxygen Delivery Oxygen Flow Rate 07/17/23 20:00 07/17/23 21:14 07/18/23 06:00 Temperature 97.4 F L 96.8 F L Pulse Rate 53 L 96 Respiratory Rate 12 16 Blood Pressure 103/60 103/57 L Pulse Oximetry 94 96 95 Oxygen Delivery Nasal Cannula Oxygen Flow Rate 2 07/18/23 09:18 Temperature Pulse Rate 101 H Respiratory Rate Blood Pressure Pulse Oximetry Oxygen Delivery Oxygen Flow Rate Intake/Output Intake/Output: Intake & Output 07/15/23 07/16/23 07/17/23 07/18/23 23:59 23:59 23:59 23:59 Intake Total 3800 / 3800 1950 / 1950 195 / 195 Output Total 1025 / 1025 325 / 325 Balance 3800 / 3800 925 / 925 -130 / -130 Meds/Results Medications: Active Medications Generic Name Dose Route Start Last Admin Trade Name Freq PRN Reason Stop Dose Admin Acyclovir 400 mg 07/17/23 09:00 07/18/23 09:18 Acyclovir 400 Mg Tablet PO 400 mg TID JAYESH Administration Ascorbic Acid 500 mg 07/17/23 09:00 07/18/23 09:18 Ascorbic Acid 500 Mg Tablet PO 500 mg BID JAYESH Administration Atorvastatin Calcium 10 mg 07/17/23 21:00 07/17/23 20:27 Atorvastatin 10 Mg Tablet PO 10 mg HS JAYESH Administration Bisacodyl 10 mg 07/17/23 00:32 Bisacodyl 10 Mg Suppository RECTAL DAILY PRN Constipation Calcium Carbonate 500 mg 07/17/23 09:00 07/18/23 09:18 Calcium Carbonate (Oscal) 500 Mg Tablet PO 500 mg QAM JAYESH Administration Dextrose 12.5 gm 07/17/23 00:33 07/17/23 08:38 Dextrose 50% 25 Gm/50 Ml Syringe IV PUSH 12.5 gm PRN PRN Administration Hypoglycemia Protocol Ergocalciferol 50,000 units 07/20/23 09:00 Ergocalciferol 50,000 Units Capsule PO Fr@0900 JAYESH Furosemide 20 mg 07/17/23 09:00 07/18/23 09:18
[2023-07-18 13:43] VITALS: BP 101/71; PULSE 94; RESP 16; TEMP 36.8; O2SAT 97
[2023-07-18] MEDS: MEROPENEM 1 GM/NS 100 ML 1 GM/100 ML BAG IVPB ×2 (13:45→21:03)
[2023-07-18 17:09] LABS: Glucose Point of Care 139 mg/dl (65-105)
[2023-07-18 17:28] VITALS: PULSE 80
[2023-07-18] MEDS: ATORVASTATIN 10 MG TABLET PO (20:58)
[2023-07-18 22:00] VITALS: BP 118/68; PULSE 101; RESP 14; TEMP 36; O2SAT 97
[2023-07-18 22:36] LABS: Glucose Point of Care 173 mg/dl (65-105)
[2023-07-19] MEDS: MEROPENEM 1 GM/NS 100 ML 1 GM/100 ML BAG IVPB ×2 (05:22→14:22)
[2023-07-19 06:00] VITALS: BP 110/75; PULSE 97; RESP 18; TEMP 35.7; O2SAT 96
[2023-07-19 08:03] LABS: Glucose Point of Care 118 mg/dl (65-105)
[2023-07-19 08:09] LABS: Glucose Point of Care 123 mg/dl (65-105)
[2023-07-19 08:34] VITALS: O2SAT 94
[2023-07-19 08:43] VITALS: PULSE 90
[2023-07-19] MEDS: FUROSEMIDE 20 MG TABLET PO (08:43)
[2023-07-19] MEDS: PROPRANOLOL HCL 20 MG TABLET PO ×2 (08:43→18:47)
[2023-07-19] MEDS: ASCORBIC ACID 500 MG TABLET PO ×2 (08:43→18:46)
[2023-07-19] MEDS: ACYCLOVIR 400 MG TABLET PO ×3 (08:43→18:46)
[2023-07-19] MEDS: MULTIVITAMINS THERAPEUTIC TAB (*BKC) 1 TABLET PO (08:43)
[2023-07-19] MEDS: POTASSIUM CHLORIDE 20 MEQ ER TABLET 40 MEQ PO (08:44)
[2023-07-19] MEDS: CALCIUM CARBONATE (OSCAL) 500 MG TABLET PO (08:44)
--- NOTE | 2023-07-19 09:48 | PM.DS ---
DS: Admitting Diagnosis Discharge Date 07/19/2023 Admitting Diagnosis Altered mental status UTI Pneumonia DS: Discharge Diagnosis Discharge Diagnosis (1) Acute UTI: Code(s): N39.0 - Urinary tract infection, site not specified Status: Acute (2) Altered mental status: Code(s): R41.82 - Altered mental status, unspecified Status: Acute (3) Pneumonia: Code(s): J18.9 - Pneumonia, unspecified organism Status: Acute DS: Summary Hospital Course Hospital Course: This is an 82-year-old female patient who is residing at [facility] where she is receiving therapy after hospitalization.? Patient's daughter states that patient has dysuria for over a week and has had an indwelling Vela catheter for over 2 weeks.? She reports that they have been asking the nursing to check urine sample but it has not been done.? The daughter came to visit patient today and found her to be very confused and altered.? She also saw the patient having chills and shortness of breath.? The daughter saw the patient yesterday and patient was doing fine.? During EMS transport patient was noted to be afebrile and tachycardic.? Workup in the emergency department shows that she has elevated white blood cell count with shift to the left and some bands present.? Chest x-ray concerning for possible pneumonia as well as urinary tract infection on UA.? Culture is pending.? Patient started on Rocephin and azithromycin and vancomycin.? MRSA swab of the nares negative. Urine culture and blood culture both grew E coli resistant to fluoroquinolones. patient was switched to meropenem. She is clinically stable and we will discharge her back to snf with ertapenem 1 g Q 24 hour for 10 more days to complete total 12 days of therapy. Time Spent with Patient Time attestation: Total time spent providing and/or coordinating discharge services: DS: Data Data Completed and Pending Labs on day of discharge: Labs from last 24 hours 07/19/23 07/19/23 07/18/23 08:00 07:47 20:52 POC Capillary Glucose 123 H 118 H 173 H 07/18/23 07/18/23 17:06 11:44 POC Capillary Glucose 139 H 161 H Preliminary micro results at discharge 07/16/23 17:46 Blood Culture - Preliminary Blood Escherichia Coli 07/16/23 17:52 Blood Culture - Preliminary Blood Escherichia Coli Discharge Plan Discharge Discharging Clinician: Akhil Lay Anticipated Discharge Date/Time: 07/19/23 09:47 Patient Disposition: SNF Activity: no preference Diet: heart healthy Stand Alone Forms: General Discharge Information Follow-up/Referrals: Bryan,MD Familia [Primary Care Provider] - Discharge Medications: New ertapenem 1 gram recon soln 1 g IM Q24H Qty: 10 0RF Continued acyclovir 400 mg tablet 400 mg PO TID ergocalciferol (vitamin D2) 1,250 mcg (50,000 unit) capsule 1,250 mcg PO WEEKLY Rx Instructions: TAKES ON FRIDAYS furosemide 20 mg Tablet 20 mg PO DAILY 30 Days Qty: 30 0RF atorvastatin 10 mg Tablet 10 mg PO HS ascorbic acid (vitamin C) 500 mg Tablet 500 mg PO BID bisacodyl 10 mg Suppository 10 mg RECTAL DAILY PRN (Reason: Constipation) glimepiride 4 mg Tablet 4 mg PO BID Fleet Enema 19-7 gram/118 mL Enema 197 ml RECTAL ONCE PRN (Reason: Constipation) Rx Instructions: if no results one day after suppository magnesium citrate [Citroma] Solution 300 ml PO DAILY PRN (Reason: Constipation) Rx Instructions: If no results from enema multivitamin [Multi-Vitamin] Tablet 1 tablet PO DAILY Oyster Shell Calcium 500 mg Tablet 500 mg PO DAILY magnesium hydroxide 400 mg/5 mL Suspension 30 ml PO HS PRN (Reason: Constipation) Rx Instructions: if no BM in three days mupirocin 2 % Ointment 1 applic TOPICAL DAILY Rx Instructions: apply to coccyx/sacrum as needed for wound care. cleanse wound to co
--- NOTE | 2023-07-19 10:11 | PC.NURSE ---
call to case coordination about dc order to confirm if NH can administer IV meds and that pt does not have PICC in place
[2023-07-19] MEDS: LIDOCAINE HCL 1% LOCAL INJ 2 ML AMPUL 5 ML INFILTRATE (11:10)
[2023-07-19 11:51] LABS: Glucose Point of Care 174 mg/dl (65-105)
[2023-07-19 11:52] LABS: Glucose Point of Care 180 mg/dl (65-105)
[2023-07-19 14:00] VITALS: BP 101/52; PULSE 94; RESP 26; TEMP 36.4; O2SAT 97
[2023-07-19] MEDS: SALINE LOCK FLUSH 10 ML IV PUSH (14:22)
[2023-07-19 17:08] LABS: Glucose Point of Care 177 mg/dl (65-105)
[2023-07-19 18:01] LABS: Glucose Point of Care 178 mg/dl (65-105)
[2023-07-19 18:47] VITALS: PULSE 94
[2023-07-19 20:29] VITALS: BP 109/51; PULSE 97; RESP 18; TEMP 35.9; O2SAT 98
--- NOTE | 2023-07-19 20:54 | PC.NURSE ---
Pt has been discharged from this facility, per EMS. Pt was discharged with Midline in right upper arm, and oden catheter per orders.
== END 2023-07-19 20:50 | DRG 698 ==
LOC: ANHED 18:50 → ANHIMU 20:59 → ANH3MEDSUR 07-17 20:04
PROVIDERS: Nurse Practitioner; Admitting Provider Internal Medicine; Emergency Provider Emergency Medicine; PCP Internal Medicine; Visit Provider Hospitalist
DX: T83.511A Infection and inflammatory reaction due to indwelling urethral catheter, initial encounter (principal); A41.51 Sepsis due to Escherichia coli [E. coli]; J18.9 Pneumonia, unspecified organism; Z16.12 Extended spectrum beta lactamase (ESBL) resistance; N39.0 Urinary tract infection, site not specified; I10 Essential (primary) hypertension; E11.9 Type 2 diabetes mellitus without complications; E78.5 Hyperlipidemia, unspecified; K74.60 Unspecified cirrhosis of liver; D69.6 Thrombocytopenia, unspecified; Z20.822 Contact with and (suspected) exposure to COVID-19; Z96.651 Presence of right artificial knee joint; Z86.711 Personal history of pulmonary embolism; Z86.718 Personal history of other venous thrombosis and embolism; Z79.4 Long term (current) use of insulin
CPT/HCPCS: 36415; 36569; 51702; 70450; 71045; 80053; 81001; 82140; 82948; 83036; 83605; 85025; 85055; 85610; 85730; 86140; 87040; 87077; 87081; 87086; 87186; 87634; 87636; 93005; 93970; 96365; 96368; 99285; A9270; J0456; J0692; J0696; J1940; J2185; J3370; J7030

== ENCOUNTER 2023-07-24 09:02 | Emergency (ER) | payer MEDICARE, BC, SELFPAY ==
[2023-07-24] VITALS (9 sets, daily range): BP systolic 110–143; BP diastolic 56–82; PULSE 114–125; RESP 16–23; TEMP 36.4–36.6; O2SAT 94–100
--- NOTE | ~2023-07-24 | CT_ITS ---
EXAMINATION: CT abdomen pelvis w con INDICATION: Generalized abdominal pain TECHNIQUE: Computed tomographic images of the abdomen and pelvis were obtained after the administrati on of 100 cc of Omnipaque 350 intravenous contrast. The dose-length product (DLP) was 1425.13 mGy-cm. Automated exposure control and iterative reconstruction technique were employed. COMPARISON: 06/10/2023 FINDINGS: There are small pleural effusions, left greater than right, with associated passive atelect asis of the lungs. The heart size is normal. There is nodularity of the liver surface. A large volume of ascites present. The enlarged spleen measures up to 15.3 cm. There is a small sliding hiatal lori ia. Stones are present in the nondistended gallbladder. An IVC filter is noted. There is partial thro mbosis of the portal vein, splenic vein, and the superior mesenteric vein near the confluence with th e portal vein. There is a 5.5 cm cyst of the right kidney. There are collaterals between the splenic vein and left iliac veins. There is a left lower quadrant ventral hernia containing ascites. Diffuse anasarca is noted. The bladder is decompressed by Vela catheter. No pathologically enlarged abdomina l or pelvic lymph nodes are identified. No free intraperitoneal gas or evidence of bowel obstruction. There is an old burst fracture of L1. IMPRESSION: 1. Cirrhosis with portal hypertension and splenomegaly. 2. Partial thrombosis of the portal vein, splenic vein, and superior mesenteric vein. 3. Large volume of ascites. 4. Left lower quadrant ventral hernia containing ascites. 5. Small pleural effusions, left greater than right. 6. Diffuse anasarca. These findings were discussed with Dr. Jagdish MD in the Emergency Department at 1320 hours on 2022. Reviewed, dictated and finalized at location L. IMPRESSION: 1. Cirrhosis with portal hypertension and splenomegaly. 2. Partial thrombosis of the portal vein, splenic vein, and superior mesenteric vein. 3. Large volume of ascites. 4. Left lower quadrant ventral hernia containing ascites. 5. Small pleural effusions, left greater than right. 6. Diffuse anasarca. These findings were discussed with Dr. Jagdish MD in the Emergency Department at 1320 hours on 07/24/2023.
--- NOTE | ~2023-07-24 | CT_ITS ---
EXAMINATION: CT brain wo con INDICATION: Altered mental status COMPARISON: 07/16/2023 TECHNIQUE: Standard unenhanced head CT. The dose-length product (DLP) was 681.00 mGy-cm. The mA was a djusted according to patient size. Iterative reconstruction technique was employed. FINDINGS: No acute intraparenchymal hemorrhage. No evidence of mass lesion. No evidence of acute infa rction. 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 There is marked periventricular and subc ortical hypodensity probably related to small vessel ischemic disease. There is moderate prominence o f the sulci and ventricles related to cerebral atrophy. Intracranial calcified cerebral atheroscleros is is noted. No extra-axial collections. No mass effect or midline shift. Changes in the globes are l ikely from ocular lens surgery. The visualized sinuses and mastoid air cells are well aerated. IMPRESSION: 1. No acute intracranial abnormality. 2. Age related findings. Reviewed, dictated and finalized at location L.
--- NOTE | ~2023-07-24 | XR_ITS ---
EXAMINATION: XR chest 1V DATE: 07/24/2023 13:17 INDICATION: Altered mental status. TECHNIQUE: A single frontal view of the chest was obtained. COMPARISON: Chest single view 07/16/2023, CT abdomen and pelvis 07/24/2023 FINDINGS: There is a moderate-sized left pleural effusion. There are airspace opacities in the perihi lar regions and at left lung base. No pneumothorax. The heart size is normal. There is a filter in th e inferior vena cava. There is an old healed fracture of proximal left humerus. IMPRESSION: 1. Moderate-sized left pleural effusion, worsened from 07/16/2023. 2. Airspace opacities in the perihilar regions and at left lung base, likely atelectasis. Reviewed, dictated and finalized at location A. IMPRESSION: 1. Moderate-sized left pleural effusion, worsened from 07/16/2023. 2. Airspace opacities in the perihilar regions and at left lung base, likely at electasis.
[2023-07-24 09:46] LABS: Glucose Point of Care 139 mg/dl (65-105)
--- NOTE | 2023-07-24 10:36 | ECG_ITS ---
Measurements Intervals Jackson Rate: 108 P: 60 AK: 139 QRS: -31 QRSD: 69 T: 82 QT: 304 QTc: 408 Interpretive Statements SINUS OR ECTOPIC ATRIAL TACHYCARDIA VENTRICULAR PREMATURE COMPLEX LEFT AXIS DEVIATION LOW QRS VOLTAGE IN PRECORDIAL LEADS ANTEROLATERAL INFARCT, AGE INDETERMINATE INFERIOR INFARCT, AGE INDETERMINATE BORDERLINE T WAVE ABNORMALITY- HIGH LATERAL LEADS BASELINE ARTIFACT- I, II, III, AVR, AVL, AVF, V2 ABNORMAL ECG COMPARED TO ECG 07/16/2023 16:42:31 SINUS TACHYCARDIA NOW PRESENT Electronically Signed On 07-24-2023 13:07:53 CDT by Jarocho Hartley D.O.
[2023-07-24 10:59] LABS: Basophils Percent Auto 0.1 % (0.2-1.2); Eosinophils Percent Auto 0.1 % (0-4.4); Hematocrit 29.2 % (37.0-47.0); Hemoglobin 9.4 g/dL (12.0-15.0); Immature Granulocyte Absolute 0.09 K/mm3 (0.00-0.031); Immature Granulocyte Percent A 1.1 % (0-0.5); Immature Platelet Fraction Pct 2.1 % (0.9-11.2); Lymphocytes Absolute Auto 0.93 K/mm3 (0.9-3.2); Lymphocytes Percent Auto 11.2 % (18.3-44.2); Mean Corpuscular HGB Conc 32.2 g/dl (32-36); Mean Corpuscular Hemoglobin 34.7 pg (26-34); Mean Corpuscular Volume 107.7 fl (80-100); Mean Platelet Volume 9.4 fl (7.4-10.4); Monocytes Absolute Auto 0.3 K/mm3 (0.1-0.6); Neutrophils Absolute Auto 6.9 K/mm3 (1.3-6.7); Neutrophils Percent Auto 83.5 % (45.5-73.1); Platelet Count Result 61 k/mm3 (150-375); Red Blood Count 2.71 M/mm3 (4.2-5.4); Red Cell Distribution Width 20.7 % (11.5-14.5); White Blood Count 8.3 K/mm3 (4.5-10.0)
[2023-07-24 11:09] LABS: INR 1.3; Prothrombin Time 16.9 Seconds (11.1-14.7)
[2023-07-24 11:10] LABS: Alanine Aminotransferase 20 U/L (6-35); Albumin Level 2.3 g/dL (3.5-5.1); Alkaline Phosphatase 136 U/L (38-126); Anion Gap 1 mmol/L (8-16); Aspartate Amino Transferase 37 U/L (14-36); Bilirubin,Total 0.9 mg/dL (0.2-1.3); Blood Urea Nitrogen 13 mg/dL (7-17); Carbon Dioxide 27 mmol/L (22-30); Chloride 108 mmol/L (98-107); Estimated Glomerular Filt Rate > 60; Glucose 124 mg/dL (65-110); Partial Thromboplastin Time 30.3 SECONDS (22.3-36.8); Potassium 4.5 mmol/L (3.4-5.0); Sodium 136 mmol/L (137-145)
[2023-07-24 11:20] LABS: Appearance Urine Turbid (Clear); Bacteria Urine Rare /hpf; Bilirubin Urine Negative (Negative); Blood Urine 3+ (Negative); Calcium Oxalate Crystals Urine Present /hpf; Color Urine Dark Yellow (Yellow); Glucose Urine UA 2+ mg/dL (Negative); Ketones Urine Negative (Negative); Leukocyte Esterase Ur 3+ LEU/UL (Negative); Mucus Urine Present /lpf; Need Manual Microscopic Reviewed; Nitrate Urine Negative (Negative); Protein Urine 1+ mg/dL (Negative); RBC Urine >100 /hpf (0-2); Specific Grav Ur 1.022 (1.001-1.035); Squamous Epithelial Cell Urine Occasional /hpf (Few); Urobilinogen Urine 0.2 mg/dL (<2.0); WBC Urine >100 /hpf
[2023-07-24 11:26] LABS: Anisocytosis 2+ (NORMAL); Macrocytosis 1+ (NORMAL); Platelet Estimate Decreased (Adequate); Schistocytes None Seen (NORMAL)
[2023-07-24 11:36] LABS: Add Urine Microscopic? YES
[2023-07-24] MEDS: SODIUM CHLORIDE 0.9% IV 500 ML 999 ML IV CONT (12:27)
[2023-07-24 12:38] LABS: Amphetamine Screen Urine Negative (Negative); Barbiturate Screen Urine Negative (Negative); Benzodiazepines Screen Urine Negative (Negative); Cannabinoid Screen Urine Negative (Negative); Cocaine Screen Urine Negative (Negative); Methadone Screen Urine Negative (Negative); Opiate Screen Urine Negative (Negative); Phencyclidine Screen Urine Negative (Negative)
[2023-07-24] MEDS: SODIUM CHLORIDE 0.9% IV 1,000 ML 999 ML IV CONT (14:19)
[2023-07-24 14:28] LABS: Lactic Acid Reflex 2.2 mmol/L (0.7-2.0)
--- NOTE | 2023-07-24 15:36 | ED.AMS ---
HPI - Altered Mental Status General Chief Complaint: Recheck/Abnormal Lab/Rx Stated Complaint: low blood sugar Time Seen by Provider: 07/24/23 10:59 History of Present Illness HPI narrative: HPI limited due to patient's altered mental status This is an 82-year-old female, brought in by EMS from her [facility] for hypoglycemia. She was reported to be ANO x3 at her baseline, she was evaluated by staff at her [facility] and found to be hypoglycemic to the 40s. She was given glucagon and D10 and transported here. On arrival, the patient is alert and oriented x1. EMS also notes she is currently being treated for a UTI with IV antibiotics. Related Data Home Medications Medication Instructions Recorded Confirmed acyclovir 400 mg tablet 400 mg PO TID 05/14/23 07/16/23 ergocalciferol (vitamin D2) 1,250 1,250 mcg PO WEEKLY 05/14/23 07/16/23 mcg (50,000 unit) capsule ascorbic acid (vitamin C) 500 mg 500 mg PO BID 07/16/23 07/16/23 tablet atorvastatin 10 mg tablet 10 mg PO HS 07/16/23 07/16/23 bisacodyl 10 mg rectal suppository 10 mg RECTAL DAILY PRN Constipation 07/16/23 07/16/23 calcium 500 mg tablet 500 mg PO DAILY 07/16/23 07/16/23 glimepiride 4 mg tablet 4 mg PO BID 07/16/23 07/16/23 magnesium citrate (Citroma oral 300 ml PO DAILY PRN Constipation 07/16/23 07/16/23 solution) magnesium hydroxide 400 mg/5 mL 30 ml PO HS PRN Constipation 07/16/23 07/16/23 oral suspension multivitamin 1 tablet PO DAILY 07/16/23 07/16/23 mupirocin 2 % topical ointment 1 applic topical DAILY 07/16/23 07/16/23 potassium chloride 20 mEq 40 meq PO DAILY 07/16/23 07/16/23 tablet,extended release propranolol 20 mg tablet 20 mg PO BID 07/16/23 07/16/23 sodium phosphates 19 gram-7 197 ml RECTAL ONCE PRN Constipation 07/16/23 07/16/23 gram/118 mL enema (Fleet Enema) Allergies Allergy/AdvReac Type Severity Reaction Status Date / Time Penicillins Allergy Mild HIVES Verified 05/14/23 13:05 Review of Systems Review of Systems: Review of systems limited due to patient's altered mental status CONSTITUTIONAL: Denies fever, chills, or sweats. CARDIOVASCULAR: Denies chest pain RESPIRATORY: Denies dyspnea. GASTROINTESTINAL: Denies abdominal pain, nausea, vomiting, or diarrhea. GENITOURINARY: Denies dysuria or hematuria. PMFSH Past Medical History Medical History Deep venous thrombosis Hyperlipidemia Hypertension Pulmonary embolism Retinal detachment, right Type 2 diabetes mellitus Surgical History Surgical History History of cataract extraction History of intestinal surgery Related to bowel obstruction, patient cannot provide further details. History of partial hysterectomy History of right knee joint replacement Family History Family History Son Acute myocardial infarction Mother Congestive heart failure Father Hypertension Sibling Alzheimer disease ALS (amyotrophic lateral sclerosis) Social History Social History Social History: Surrogate medical decision maker: Jessica Wright, daughter. Code status: Full code. Smoking status: Never smoker Alcohol intake: never Substance use: never Substance use type: does not use Lack of Transportation: No Lack of Food: Never True Current Housing: I Have Housing Concerned About Future Housing: No Difficulty Paying Gas/Electric Bills: No Difficulty Paying for Meds: No Currently Unemployed: No Education: High School Diploma/GED Difficulty w/ Childcare or Family Care: No Spiritual care concerns: No Exam Narrative: GENERAL: Well-developed, well-nourished, and in no acute distress. HEAD: Normocephalic, atraumatic. EYES: PERRLA and EOMI. ENT: Nares clear, no rhinorrhea or epistaxis. Mucous membranes moist. Oropharynx
--- NOTE | 2023-07-24 16:21 | PCCCNOTE ---
Addendum entered by Lois Vasquez RN 07/24/23 19:05: Carolina with [facility] called dtr and informed her of the cost. Family choose [facility]. Call placed and James from [facility] stated they could not be out this evening but they could meet with them on Sunday at [facility]. Dtr Carolina informed and she would like her mother to return to [facility] this evening by ambulance and meet with [facility] Sunday07/25/23. She has a sister coming tomorrow also. Call placed to Carolina with [facility] and message left that pt will be returning there this evening and [facility] will be there Sunday. ED provider informed of plan and agreed. Original Note: Call received requesting hospice referral from family. Pt is currently at [facility] in [place]. She has been there for SNF for rehab. Family would like to consider her returning there under hospice. Present at bedside are dtr, Carolina, and her JUAN. Informed that under hospice pt would have to pay out of pocket for room and board and then hospice would provide nursing/aid care a couple of times a week. Informed of alternative is to take pt home and provide care there with hospice coming in couple of times a week. They could also supply equipment and supplies needed. Call placed to Carolina with [facility] and gave her dtr Carolina's phone number. She will be calling them in about 30 min to let them know out of pocket cost. Dtr states they have been filling out applications for [facility] as pt is running out of money. List of hospice providers given to dtr and informed her that [facility] usually has residents that have [facility] hospice. Family and pt will consider options and let us know when they have come to a decision.
[2023-07-24 17:15] LABS: Reflex Lactic Acid Yes or No Add Lactic
[2023-07-24 19:23] LABS: Glucose Point of Care 25 mg/dl (65-105)
[2023-07-24] MEDS: DEXTROSE 50% 25 GM/50 ML SYRINGE (19:28)
[2023-07-24 19:58] LABS: Glucose Point of Care 130 mg/dl (65-105)
--- NOTE | 2023-07-24 20:12 | PC.NURSE ---
Addendum entered by Mony Viera 07/24/23 20:58: [facility] ARRIVED: 2054 Original Note: Transport 1910- need BLS transport home [place]: called 1909; ETA 2044
== END 2023-07-24 21:15 | disposition hospice, home (50) ==
PROVIDERS: Emergency Provider Preventive Medicine Aerospace Medicine; PCP Internal Medicine
DX: I81 Portal vein thrombosis (principal); R00.0 Tachycardia, unspecified; N39.0 Urinary tract infection, site not specified; E11.65 Type 2 diabetes mellitus with hyperglycemia; R41.82 Altered mental status, unspecified; E78.5 Hyperlipidemia, unspecified; I10 Essential (primary) hypertension; Z86.711 Personal history of pulmonary embolism; Z79.2 Long term (current) use of antibiotics; Z79.899 Other long term (current) drug therapy
CPT/HCPCS: 36415; 70450; 71045; 74177; 80053; 80307; 81001; 82948; 83605; 85025; 85055; 85610; 85730; 87040; 87086; 87088; 87106; 93005; 96361; 96365; 96375; 99284; J0696; J7030; J7040; Q9967